=== PATIENT | female | born 1945 | race Caucasian/White ===

== ENCOUNTER 2016-12-06 09:35 | Outpatient (CLI) | payer MEDICARE, OTHER | END 2016-12-06 09:36 | disposition critical access hospital (66) | LOC: EMS 09:35 | PROVIDERS: ATTEND Surgery | DX: S99.912A Unspecified injury of left ankle, initial encounter (principal); W10.9XXA Fall (on) (from) unspecified stairs and steps, initial encounter; Y92.009 Unspecified place in unspecified non-institutional (private) residence as the place of occurrence of the external cause | CPT/HCPCS: A0425; A0429 ==

== ENCOUNTER 2016-12-06 09:53 | Emergency (ER) | payer MEDICARE, OTHER ==
[2016-12-06 10:01] VITALS: BP 178/84
--- NOTE | 2016-12-06 11:47 | XRAY Preliminary Report ---
Exam: XR Foot 3 View LT IMPRESSION: No acute findings 3 view left foot radiography. [facility] SITE ID: [id number]
--- NOTE | 2016-12-06 11:50 | XRAY Report ---
EXAM: LEFT FOOT RADIOGRAPHY EXAM DATE: 12/06/2016 10:41 AM. CLINICAL HISTORY: Injury. Pain COMPARISON: None. TECHNIQUE: 3 views. FINDINGS: Bones: No fractures or bone lesions. Joints: Scattered minor degenerative changes. No subluxations. Soft Tissues: No soft tissue swelling. IMPRESSION: No acute findings 3 view left foot radiography. [facility] Referring Provider Line: [phone] SITE ID: [id number]
--- NOTE | 2016-12-06 12:39 | ED Physician Documentation ---
PD HPI LOWER EXT INJURY - Stated complaint Stated Complaint: L ANKLE INJ - Chief complaint Chief Complaint: Ext Problem - History obtained from History obtained from: Patient, Family - History of Present Illness PD HPI LOW EXT INJURY LOCATION: Left, Foot Type of injury: Fall Where injury occurred: Home Timing - onset: Today Timing - duration: Hours Timing - details: Abrupt onset, Still present Improved by: Rest, Immobilization Worsened by: Moving, Palpating Associated symptoms: Swelling. No: Weakness, Numbness Contributing factors: No: Anticoagulated Similar symptoms before: Has not had sx before Recently seen: Not recently seen - Additional information Additional information: 71-year-old female was walking down steps she slipped on a piece of carpet and injured her left foot. She has pain in the center of the left foot with any weightbearing and she is not able to bear weight on this. Review of Systems Constitutional: denies: Fever Respiratory: denies: Cough GI: denies: Vomiting Skin: denies: Rash Musculoskeletal: reports: Extremity pain, Extremity swelling, Pain with weight bearing. 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: Hysterectomy HEENT: Tonsil/Adenoidectomy - Present Medications Home Medications: Ambulatory Orders Medication Instructions Recorded Confirmed Pantoprazole Sodium [Protonix] 40 mg PO DAILY 10/02/12 09/20/15 lamoTRIgine [LaMICtal] 100 mg PO DAILY 10/02/12 09/20/15 - Allergies Allergies/Adverse Reactions: Allergies Allergy/AdvReac Type Severity Reaction Status Date / Time esomeprazole Allergy Mild unknown Verified 12/06/16 09:59 diazepam Allergy Unknown Hallucinati Verified 12/06/16 09:59 ons Penicillins Allergy Unknown Hallucinati Verified 12/06/16 09:59 ons azithromycin AdvReac tremors Verified 12/06/16 09:59 - Social History Does the pt smoke?: No Smoking Status: Never smoker Does the pt drink ETOH?: No Does the pt have substance abuse?: No - Immunizations Immunizations are current?: No Immunizations: TDAP >10years/unknown - POLST Patient has POLST: No POLST Status: Full Code PD ED PE NORMAL - Vitals Vital signs reviewed: Yes (Hypertensive) - General General: Alert and oriented X 3, No acute distress, Well developed/nourished - HEENT HEENT: Atraumatic, PERRL, EOMI - Respiratory Respiratory: No respiratory distress - Derm Derm: Normal color, Warm and dry, No rash - Extremities Extremities: No deformity, Other (There is tenderness to the left foot centrally and just lateral to central. There is no crepitance to the area there is mild swelling to the entire bottom of the foot the distal neurovascular components are intact.) - Neuro Neuro: Alert and oriented X 3, No motor deficit, No sensory deficit, Normal speech - Psych Psych: Normal mood, Normal affect Results - Vitals Vitals: Vital Signs - 24 hr 12/06/16 09:54 Temperature 36.4 C L Heart Rate 64 Respiratory 16 Rate Blood Pressure 178/84 H O2 Saturation 97 Oxygen O2 Source Room air - Rads (name of study) Left foot Radiology: Prelim report reviewed (Impression: No acute findings 3 view left foot radiography), EMP read indepedently, See rad report PD MEDICAL DECISION MAKING - ED course Complexity details: reviewed results, re-evaluated patient, considered differential, d/w patient, d/w family ED course: 71-year-old female with a bruise to the bottom of her foot is not able to bear weight. She is given a walker for ambulation and is to expect resolution of her symptoms within the next 2 weeks. Departure - Departure Disposition: 01 Home, Self Care Clinical Impression: Contusion of left foot Qualifiers: Encounter type: initial encounter Qualified Code(s): S90.32XA - Contusion of left foot, initial encounter Condition: Stable Instructions: ED Contusion Lower Ext Follow-Up: Skip Fernandez MD [Primary Care Provider] - Comments: Today it looks like you contused your plantar fascia. There is no evidence of a fracture. You would be best served to not bear weight on this foot for several days and expect to have resolution of your pain, and be able to walk normally, within about 2 weeks.
== END 2016-12-06 12:42 | disposition home or self-care (01) ==
LOC: EDUNIT# → ED 09:53
DX: S90.32XA Contusion of left foot, initial encounter (principal); W01.0XXA Fall on same level from slipping, tripping and stumbling without subsequent striking against object, initial encounter; Y92.018 Other place in single-family (private) house as the place of occurrence of the external cause; K21.9 Gastro-esophageal reflux disease without esophagitis
CPT/HCPCS: 99283

== ENCOUNTER 2016-12-18 07:51 | Emergency (ER) | payer MEDICARE, OTHER ==
--- NOTE | 2016-12-18 08:00 | ED Physician Documentation ---
PD HPI LOWER EXT INJURY - Stated complaint Stated Complaint: LT FOOT PX - History obtained from History obtained from: Patient - History of Present Illness PD HPI LOW EXT INJURY LOCATION: Left, Foot Type of injury: Fall Timing - onset: How many weeks ago (2) Timing - duration: Weeks (2) Timing - details: Abrupt onset, Still present Worsened by: Moving, Palpating, Other (step off portion of gait and stepping up , such as on stairs.) Associated symptoms: Swelling, Discolored (bruised foot and toes.). No: Weakness, Numbness Similar symptoms before: Has not had sx before Recently seen: Emergency Dept (she was seen with initial injury and had xray read as negative; Dx sprain/contusion. Has had persistent pain. Here for recheck.) Review of Systems Constitutional: denies: Fever, Chills Skin: reports: Other (bruised color and swelling after the injury, improving slowly). 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: Hysterectomy HEENT: Tonsil/Adenoidectomy - Present Medications Home Medications: Ambulatory Orders Medication Instructions Recorded Confirmed Pantoprazole Sodium [Protonix] 40 mg PO DAILY 10/02/12 12/18/16 lamoTRIgine [LaMICtal] 100 mg PO DAILY 10/02/12 12/18/16 - Allergies Allergies/Adverse Reactions: Allergies Allergy/AdvReac Type Severity Reaction Status Date / Time esomeprazole Allergy Mild unknown Verified 12/06/16 09:59 diazepam Allergy Unknown Hallucinati Verified 12/06/16 09:59 ons Penicillins Allergy Unknown Hallucinati Verified 12/06/16 09:59 ons blue dye Allergy Unknown Verified 12/18/16 07:59 azithromycin AdvReac tremors Verified 12/06/16 09:59 - Social History Does the pt smoke?: No Smoking Status: Never smoker Does the pt drink ETOH?: No Does the pt have substance abuse?: No - Immunizations Immunizations are current?: No Immunizations: TDAP >10years/unknown - POLST Patient has POLST: No POLST Status: Full Code PD ED PE NORMAL - Vitals Vital signs reviewed: Yes - General General: Alert and oriented X 3, No acute distress, Well developed/nourished - Derm Derm: Normal color, Warm and dry - Extremities Extremities: Other (limping gait favoring less movement at mid foot. foot is tender anterolaterally over 4th MT base area. ) - Neuro Neuro: No motor deficit, No sensory deficit Results - Vitals Vitals: Vital Signs - 24 hr 12/18/16 07:56 Temperature 36.3 C L Heart Rate 65 Respiratory 18 Rate Blood Pressure 175/69 H O2 Saturation 96 Oxygen O2 Source Room air - Rads (name of study) foot Radiology: Prelim report reviewed (xray now showing fracture in area of pain; not clearly visible on prior film. ) PD MEDICAL DECISION MAKING - ED course Complexity details: reviewed results, considered differential, d/w patient Departure - Departure Disposition: 01 Home, Self Care Clinical Impression: Foot pain, left Metatarsal bone fracture Qualifiers: Encounter type: subsequent encounter Metatarsal bone: fourth Fracture type: closed Fracture alignment: nondisplaced Laterality: left Fracture healing: with routine healing Qualified Code(s): S92.345D - Nondisplaced fracture of fourth metatarsal bone, left foot, subsequent encounter for fracture with routine healing Condition: Stable Record reviewed to determine appropriate education?: Yes Instructions: ED Fx Foot Follow-Up: Skip Fernandez MD [Primary Care Provider] - Ashly Aguero MD [Provider Admit Priv/Credential] - Comments: Take Advil twice daily 200-400 mg twice daily for a week. Add Tylenol every 4-6 hours if needed for pain. Use the Ortho shoe for the foot when walking. Follow up with PMD or Ortho in about another 8-10 days, call for appt. There is a small fracture line showing up now in one of the midfoot bones. This will take about a month to heal, but should start improving after the first couple of weeks (so soon). Discharge Date/Time: 12/18/16 08:58
[2016-12-18 08:04] VITALS: BP 175/69
--- NOTE | 2016-12-18 09:04 | XRAY Preliminary Report ---
Exam: XR Foot 3 View LT IMPRESSION: Nondisplaced transverse fracture in the proximal metaphysis of the fourth metatarsal bone and there is also a short radiolucent line in the distal lateral cuboid, concern for small fracture as well, these 2 findings were not well visualized in the prior exam. [facility] SITE ID: [id number]
--- NOTE | 2016-12-18 09:06 | XRAY Report ---
EXAM: LEFT FOOT RADIOGRAPHY EXAM DATE: 12/18/2016 08:42 AM. CLINICAL HISTORY: Continued pain in foot and worse again today . COMPARISON: 12/06/2016. TECHNIQUE: 3 views. FINDINGS: Bones: There is nondisplaced transverse fracture in the proximal metaphysis of the fourth metatarsal bone and there is also a short radiolucent line in the distal lateral cuboid, concern for small fract ure as well, these 2 findings were not well visualized in the prior exam. Otherwise, no new fractures or bone lesions identified. Joints: No significant degenerative process. No subluxations. Soft Tissues: No radiopaque foreign body. IMPRESSION: Nondisplaced transverse fracture in the proximal metaphysis of the fourth metatarsal bone and there is also a short radiolucent line in the distal lateral cuboid, concern for small fracture as well, these 2 findings were not well visualized in the prior exam. [facility] Referring Provider Line: [phone] SITE ID: [id number]
== END 2016-12-18 08:58 | disposition home or self-care (01) ==
LOC: ED 07:51
DX: M79.672 Pain in left foot (principal); S92.345D Nondisplaced fracture of fourth metatarsal bone, left foot, subsequent encounter for fracture with routine healing; W19.XXXD Unspecified fall, subsequent encounter; K21.9 Gastro-esophageal reflux disease without esophagitis
CPT/HCPCS: 99283

== ENCOUNTER 2017-03-21 06:17 | Emergency (ER) | payer MEDICARE, OTHER ==
[2017-03-21 07:09] LABS: BASOPHILS % (AUTO) 0.5 %; EOSINOPHILS % (AUTO) 0.5 %; HCT - HEMATOCRIT 42.1 % (37.0-47.0); HGB - HEMOGLOBIN 14.2 g/dL (12.0-16.0); LYMPHOCYTES # (AUTO) 1.2 10^3/uL (1.5-3.5); LYMPHOCYTES % (AUTO) 23.6 %; MEAN CORPUSCULAR HEMOGLOBIN 30.4 pg (27.0-31.0); MEAN CORPUSCULAR HGB CONC 33.7 g/dL (32.0-36.0); MEAN CORPUSCULAR VOLUME 90.4 fL (81.0-99.0); MEAN PLATELET VOLUME 6.8 fL (7.9-10.8); MONOCYTES # (AUTO) 0.7 10^3/uL (0.0-1.0); NEUTROPHILS # (AUTO) 3.2 10^3/uL (1.5-6.6); NEUTROPHILS % (AUTO) 61.4 %; NUCLEATED RED BLOOD CELLS AUTO 0.1 /100WBC; RED BLOOD COUNT 4.65 10^6/uL (4.20-5.40); RED CELL DISTRIBUTION WIDTH 13.8 % (12.0-15.0); UNCORRECTED WHITE BLOOD COUNT 5.2 x10^3/uL; WHITE BLOOD COUNT 5.2 x10^3/uL (4.8-10.8)
[2017-03-21 07:14] LABS: BILIRUBIN,URINE NEGATIVE (NEGATIVE)
[2017-03-21 07:22] LABS: ALBUMIN/GLOBULIN RATIO 1.7 (1.0-2.2); BILIRUBIN,TOTAL 0.4 mg/dL (0.2-1.0); CALCIUM 9.6 mg/dL (8.5-10.3); CREATININE 0.9 mg/dL (0.4-1.0); POTASSIUM 3.8 mmol/L (3.5-5.0); TOTAL PROTEIN 6.9 g/dL (6.7-8.2)
[2017-03-21 07:29] LABS: UA w/ MICROSCOPIC CHARGE YES
[2017-03-21 07:40] LABS: UR CULTURE IF IND INDICATED
[2017-03-21] MEDS ORDERED: cefTRIAXone 1 GM in SODIUM CHLORIDE 0.9% MINIBAG 100 ML IV STA (07:48)
--- NOTE | 2017-03-21 07:48 | ED Physician Documentation ---
PD HPI ABD PAIN - Stated complaint Stated Complaint: GLF - Chief complaint Chief Complaint: Abd Pain - History obtained from History obtained from: Patient - History of Present Illness Timing - onset: Enter time (299), Today Timing - duration: Hours Timing - details: Abrupt onset, Still present Pain level max: 10 Pain level now: 6 Quality: Sharp, Pain Location: RUQ, Epigastric Improved by: Laying still Worsened by: Moving, Position, Palpation Associated symptoms: No: Fever, Nausea, Vomiting, Hematemesis, Diarrhea, Constipation, Melena, Hematochezia, Dysuria, Hematuria, Chest pain, Dizzy, Near syncope / syncope, Loss of appetite Similar symptoms before: Has not had sx before Recently seen: Not recently seen - Additional information Additional information: 72-year-old female status post Christina and appendectomy has rolled over in bed last night and had a sharp pain in her right upper abdomen. The pain was initially under the ribs along the entire right side and this pain is now more localized to the Midclavicular line of the upper abdomen. She has some pain with movement and she does not have any visceral symptoms. She feels she may have pulled a muscle in her abdominal wall. Her pain is improved from its worst. Review of Systems Constitutional: denies: Fever, Chills, Myalgias Eyes: denies: Decreased vision Ears: denies: Ear pain Nose: denies: Congestion Throat: denies: Sore throat Cardiac: denies: Chest pain / pressure, Palpitations Respiratory: denies: Dyspnea, Cough GI: reports: Abdominal Pain. denies: Nausea, Vomiting, Constipation, Diarrhea : denies: Dysuria, Frequency Skin: denies: Rash, Lesions Musculoskeletal: denies: Neck pain, Back pain Neurologic: denies: Generalized weakness, Focal weakness, Numbness PD PAST MEDICAL HISTORY - Past Medical History Cardiovascular: None Respiratory: None Neuro: Seizure disorder Endocrine/Autoimmune: None GI: GERD, Diverticulitis : None HEENT: None Psych: None Musculoskeletal: None Derm: None - Past Surgical History Past Surgical History: Yes General: Colonoscopy, EGD Ortho: Rotator cuff repair /[employer]: Hysterectomy HEENT: Tonsil/Adenoidectomy - Present Medications Home Medications: Ambulatory Orders Medication Instructions Recorded Confirmed Pantoprazole Sodium [Protonix] 40 mg PO DAILY 10/02/12 12/18/16 lamoTRIgine [LaMICtal] 100 mg PO DAILY 10/02/12 12/18/16 Sulfamethoxazole/Trimethoprim 1 each PO BID #14 tablet 03/21/17 [Sulfamethoxazole-Tmp Ds Tablet] - Allergies Allergies/Adverse Reactions: Allergies Allergy/AdvReac Type Severity Reaction Status Date / Time esomeprazole Allergy Mild unknown Verified 03/21/17 06:31 diazepam Allergy Unknown Hallucinati Verified 03/21/17 06:31 ons Penicillins Allergy Unknown Hallucinati Verified 03/21/17 06:31 ons blue dye Allergy Unknown Verified 03/21/17 06:31 azithromycin AdvReac tremors Verified 03/21/17 06:31 - Social History Does the pt smoke?: No Smoking Status: Never smoker Does the pt drink ETOH?: No Does the pt have substance abuse?: No - Immunizations Immunizations are current?: No Immunizations: TDAP >10years/unknown - POLST Patient has POLST: No POLST Status: Full Code PD ED PE NORMAL - Vitals Vital signs reviewed: Yes (Hypertensive mild) - General General: Alert and oriented X 3, No acute distress, Well developed/nourished - HEENT HEENT: Atraumatic, PERRL - Neck Neck: Supple, no meningeal sign - Cardiac Cardiac: RRR, No murmur - Respiratory Respiratory: No respiratory distress, Clear bilaterally - Abdomen Abdomen: Soft, Other (There is tenderness to the right upper quadrant over the mid clavicular line and medial to that. The tenderness is in a specific area and there is no guarding or rebound. There is no tenderness to bimanual palpation of the right kidney. There is no tenderness in the rest of the abdomen. There is pain with sitting up and laying down to this area.) - Back Back: No CVA TTP, No spinal TTP - Derm Derm: Normal color, Warm and dry, No rash - Extremities Extremities: No deformity, No edema - Neuro Neuro: No motor deficit, No sensory deficit - Psych Psych: Normal mood, Normal affect Results - Vitals Vitals: Vital Signs - 24 hr 03/21/17 03/21/17 06:28 09:35 Temperature 36.4 C L Heart Rate 84 58 L Respiratory 19 16 Rate Blood Pressure 117/87 H 135/58 H O2 Saturation 97 97 Oxygen O2 Source Room air - Labs Labs: Microbiology 03/21/17 06:55 Urine Culture - Preliminary Urine,Clean Catch CULTURE IN PROGRESS. RESULTS TO FOLLOW. Laboratory Tests 03/21/17 03/21/17 03/21/17 06:06 06:55 06:56 WBC 5.2 RBC 4.65 Hgb 14.2 Hct 42.1 MCV 90.4 MCH 30.4 MCHC 33.7 RDW 13.8 Plt Count 230 MPV 6.8 L Neut # 3.2 Lymph # 1.2 L [place]y # 0.7 Eos # 0.0 Baso # 0.0 Absolute Nucleated RBC 0.01 Nucleated RBC % 0.1 Sodium 139 Potassium 3.8 Chloride 102 Carbon Dioxide 28 Anion Gap 9.0 BUN 19 Creatinine 0.9 Estimated GFR (MDRD) 61 L Glucose 69 L Calcium 9.6 Total Bilirubin 0.4 AST 24 ALT 15 Alkaline Phosphatase 58 Total Protein 6.9 Albumin 4.3 Globulin 2.6 Albumin/Globulin Ratio 1.7 Lipase 25 Urine Color YELLOW Urine Clarity CLEAR Urine pH 6.0 Ur Specific [place] 1.025 Urine Protein NEGATIVE Urine Glucose (UA) NEGATIVE Urine Ketones NEGATIVE Urine Occult Blood TRACE-INTA Urine Nitrite NEGATIVE Urine Bilirubin NEGATIVE Urine Urobilinogen 0.2 (NORMAL) Ur Leukocyte Esterase SMALL H Urine RBC None Seen Urine WBC 6-10 H Ur Squamous Epith Cells RARE Squamous Urine Bacteria Few Urine Mucus Moderate Strands Ur Microscopic Review INDICATED Urine Culture Comments INDICATED - Rads (name of study) 2 view chest Radiology: Prelim report reviewed (Impression: 1. Cardiomegaly. 2. Hyperinflation. 3. No acute disease.), EMP read indepedently, See rad report Procedures - Bedside sono Bedside sono by EMP: With use of bedside ultrasound the right kidney is examined. It is sonographically nontender and without evidence of hydronephrosis. PD MEDICAL DECISION MAKING - ED course Complexity details: reviewed old records, reviewed results, re-evaluated patient , considered differential, d/w patient ED course: 72-year-old female went to go lay down in her bed last night and strained her abdominal wall. She has pain in the right upper quadrant she has no visceral symptoms and workup is otherwise unremarkable. She does have urinary tract infection on evaluation of the urine and is administered Rocephin intravenously. She does not have a tender kidney on the right side. Departure - Departure Disposition: 01 Home, Self Care Clinical Impression: Urinary tract infection Qualifiers: Urinary tract infection type: acute cystitis Hematuria presence: without hematuria Qualified Code(s): N30.00 - Acute cystitis without hematuria Strain of abdominal wall Qualifiers: Encounter type: initial encounter Qualified Code(s): S39.011A - Strain of muscle, fascia and tendon of abdomen, initial encounter Condition: Stable Instructions: ED Strain Abdominal Muscle, ED UTI Cystitis Female Follow-Up: Skip Fernandez MD [Primary Care Provider] - Prescriptions: Sulfamethoxazole/Trimethoprim [Sulfamethoxazole-Tmp Ds Tablet] 1 each PO BID # 14 tablet Discharge Date/Time: 03/21/17 09:36
[2017-03-21] MEDS ORDERED: cefTRIAXone 1 GM VIAL ONE (08:17)
--- NOTE | 2017-03-21 09:06 | XRAY Preliminary Report ---
Exam: XR CHEST 2 VIEW PA/LAT IMPRESSION: 1. Cardiomegaly. 2. Hyperinflation. 3. No acute disease. [facility] SITE ID: [id number]
--- NOTE | 2017-03-21 09:09 | XRAY Report ---
EXAM: CHEST RADIOGRAPHY EXAM DATE: 03/21/2017 08:49 AM. CLINICAL HISTORY: Right lower chest pain. COMPARISON: 11/26/2010. 01/18/2008. TECHNIQUE: 2 views. FINDINGS: Lungs/Pleura: No focal opacities evident. No pleural effusion. No pneumothorax. Hyperinflated. Mediastinum: Heart is enlarged. Aorta is tortuous. Other: Degenerative changes of the thoracic spine and both shoulders. Postsurgical changes along the right humeral head. IMPRESSION: 1. Cardiomegaly. 2. Hyperinflation. 3. No acute disease. [facility] Referring Provider Line: [phone] SITE ID: [id number]
[2017-03-21 09:36] VITALS: BP 135/58
== END 2017-03-21 09:36 | disposition home or self-care (01) ==
LOC: ED 06:17
DX: N30.00 Acute cystitis without hematuria (principal); S39.011A Strain of muscle, fascia and tendon of abdomen, initial encounter; X50.9XXA Other and unspecified overexertion or strenuous movements or postures, initial encounter
CPT/HCPCS: 36415; 71020; 80053; 81001; 81003; 83690; 85025; 87077; 87086; 96365; 99283; 99284

== ENCOUNTER 2017-04-25 08:17 | Outpatient (CLI) | payer MEDICARE, OTHER ==
--- NOTE | 2017-04-25 15:10 | DEXA Report ---
DEXA SCAN: 04/25/2017 CLINICAL INDICATION: Postmenopausal. TECHNIQUE: Dual energy x-ray absorptiometry (DXA) was performed on a [employer] system. Regions measured are the AP spine, femoral neck, and, if needed, forearm. COMPARISON: None. In accordance with the International Society for Clinical Densitometry (ISCD) guidelines, data from previous exams may be reanalyzed using current recommendations and techniques. This is done to allow a more accurate basis for comparison with the current study. FINDINGS LUMBAR SPINE DATA: REGION BMD (g/cm/cm) T-SCORE Z-SCORE L1 0.929 -1.7 -0.2 L2 1.169 -0.3 1.2 L3 1.207 0.1 1.5 L4 1.151 -0.4 1.1 TOTAL 1.119 -0.5 1.0 NOTE: All evaluable vertebrae are used for classification. HIP DATA: REGION BMD (g/cm/cm) T-SCORE Z-SCORE Neck 0.844 -1.4 0.3 TOTAL 0.941 -0.5 1.0 NOTE: The femoral neck or total proximal femur, whichever is lowest, is used for classification. IMPRESSION: THE WHO CLASSIFICATION BASED ON THE INTERNATIONAL REFERENCE STANDARD: OSTEOPENIA (REFERENCE LEFT FEMORAL NECK). FRACTURE RISK: INCREASED. RECOMMENDATION: Patients with diagnosis of osteoporosis or osteopenia should have regular bone mineral density assessment. For those eligible for Medicare, routine testing is allowed once every 2 years. Testing frequency can be increased for patients who have rapidly progressing disease or for those who are receiving medical therapy to restore bone mass. COMMENT: World Health Organization (WHO) definitions for osteoporosis and osteopenia: NORMAL BMD: T-score at -1.0 or higher, fracture risk is low. OSTEOPENIA BMD: T-score between -1.0 and -2.5, fracture risk is increased. OSTEOPOROSIS BMD: T-score at -2.5 or lower, fracture risk high. National Osteoporosis Foundation recommends: 1. Obtain adequate dietary calcium (at least 1200 mg per day) and vitamin D (400 -800 international units per day). 2. Participate, as appropriate, in regular weightbearing and muscle- strengthening exercise. 3. Avoid tobacco use and reduce alcohol and caffeine intake. 4. For more detailed information see the website at www.NOF.org. MTDD
== END 2017-04-25 08:18 | disposition home or self-care (01) ==
LOC: DI 08:17
PROVIDERS: ATTEND Internal Medicine
DX: M85.88 Other specified disorders of bone density and structure, other site (principal)
CPT/HCPCS: 77080

== ENCOUNTER 2017-05-15 14:27 | Outpatient (CLI) | payer MEDICARE, OTHER ==
[2017-05-15 15:12] LABS: BILIRUBIN,URINE NEGATIVE (NEGATIVE)
[2017-05-15 15:19] LABS: UR CULTURE IF IND NOT INDICATED
== END 2017-05-15 14:28 | disposition home or self-care (01) ==
LOC: LAB 14:27
PROVIDERS: ATTEND Internal Medicine
DX: N39.41 Urge incontinence (principal)
CPT/HCPCS: 81001; 87086

== ENCOUNTER 2017-05-16 08:00 | Outpatient (CLI) | payer MEDICARE, OTHER | END 2017-05-16 08:01 | disposition home or self-care (01) | LOC: LAB.R 08:00 | PROVIDERS: ATTEND Internal Medicine | DX: N39.41 Urge incontinence (principal) | CPT/HCPCS: 87086 ==

== ENCOUNTER 2017-05-25 08:43 | Outpatient (CLI) | payer MEDICARE, OTHER ==
--- NOTE | 2017-05-30 15:19 | Mammography Report ---
DATE OF SERVICE: 05/25/2017 DIGITAL SCREENING MAMMOGRAM: 05/25/2017 CLINICAL INDICATION: A 72-year-old nulliparous patient with history of benign left breast biopsy for screening. TECHNIQUE: Routine CC and MLO projections were obtained of the breasts. FINDINGS: The breasts demonstrate scattered fibroglandular densities bilaterally. Punctate, typical ly benign calcifications are present. Postoperative changes in the left breast are stable. No suspicious mass es, clustered microcalcifications, or regions of architectural distortion are identified. IMPRESSION: Benign findings. RECOMMENDATIONS: Routine annual screening unless otherwise clinically indicated. BIRADS category 2 - Benign findings. STANDARD QUALIFYING STATEMENTS 1. This examination was reviewed with the aid of Computed-Aided Detection (CAD). 2. A negative or benign imaging report should not delay biopsy if clinically suspicious findings are present. Consider surgical consultation if warranted. More than 5% of cancers are not identified by imaging. 3. Dense breasts may obscure an underlying neoplasm. TD: 05/26/2017 22:46
== END 2017-05-25 08:44 | disposition home or self-care (01) ==
LOC: DI 08:43
PROVIDERS: ATTEND Internal Medicine
DX: Z12.31 Encounter for screening mammogram for malignant neoplasm of breast (principal)
CPT/HCPCS: 77067

== ENCOUNTER 2017-06-19 11:22 | Outpatient (CLI) | payer MEDICARE, OTHER | END 2017-06-19 11:23 | disposition home or self-care (01) | LOC: SC 11:22 | PROVIDERS: ATTEND Internal Medicine Pulmonary Disease | DX: G47.10 Hypersomnia, unspecified (principal); G47.8 Other sleep disorders; R06.83 Snoring | CPT/HCPCS: 99203; G0463; 99212 ==

== ENCOUNTER 2017-07-16 19:17 | Outpatient (CLI) | payer MEDICARE, OTHER | END 2017-07-16 19:18 | disposition home or self-care (01) | LOC: SC 19:17 | PROVIDERS: ATTEND Internal Medicine Pulmonary Disease | DX: G47.33 Obstructive sleep apnea (adult) (pediatric) (principal); G47.61 Periodic limb movement disorder | CPT/HCPCS: 95810 ==

== ENCOUNTER 2017-08-08 09:24 | Outpatient (CLI) | payer MEDICARE, OTHER | END 2017-08-08 09:25 | disposition home or self-care (01) | LOC: SC 09:24 | PROVIDERS: ATTEND Nurse Practitioner Family | DX: G47.33 Obstructive sleep apnea (adult) (pediatric) (principal); G47.61 Periodic limb movement disorder | CPT/HCPCS: 99214; G0463; 99212 ==

== ENCOUNTER 2017-08-15 14:14 | Outpatient (CLI) | payer MEDICARE, OTHER ==
--- NOTE | 2017-08-15 14:58 | XRAY Report ---
TWO VIEW CHEST: 08/15/2017 CLINICAL INDICATION: Cough. COMPARISON: 03/21/2017. FINDINGS: Frontal and lateral views of the chest demonstrate a normal cardiac silhouette. The lungs are clear. No effusion or pneumothorax is present. IMPRESSION: NORMAL CHEST. TD: 08/15/2017 14:56
== END 2017-08-15 14:15 | disposition home or self-care (01) ==
LOC: DI 14:14
PROVIDERS: ATTEND Physician Assistant Medical
DX: R05 Cough (principal); R06.00 Dyspnea, unspecified
CPT/HCPCS: 71046

== ENCOUNTER 2017-08-24 15:08 | Outpatient (CLI) | payer MEDICARE, OTHER ==
--- NOTE | 2017-08-24 17:14 | XRAY Report ---
TWO VIEW CHEST: 08/24/2017 CLINICAL INDICATION: Dyspnea. COMPARISON: 08/15/2017 FINDINGS: Frontal and lateral views of the chest demonstrate a normal cardiac silhouette. The lungs remain clear. No effusion or pneumothorax is present. IMPRESSION: NORMAL CHEST, UNCHANGED. cc: NICA LINO, TD: 08/24/2017 17:12 cc: NICA LINO,
== END 2017-08-24 15:09 | disposition home or self-care (01) ==
LOC: DI 15:08
PROVIDERS: ATTEND Physician Assistant Medical
DX: R06.00 Dyspnea, unspecified (principal)
CPT/HCPCS: 71046

== ENCOUNTER 2017-10-10 09:56 | Outpatient (CLI) | payer MEDICARE, OTHER | END 2017-10-10 09:57 | disposition home or self-care (01) | LOC: SC 09:56 | PROVIDERS: ATTEND Nurse Practitioner Family | DX: G47.33 Obstructive sleep apnea (adult) (pediatric) (principal) | CPT/HCPCS: 99213 ==

== ENCOUNTER 2017-12-07 08:19 | Day surgery (SDC) | payer MEDICARE, OTHER ==
[~2017-12-07 08:19] MED LIST: BRIMONIDINE 0.2% OPHTH DROPS 5 ML ONE; BSS/LIDOCAINE/EPINEPHRINE 1 ML SYRINGE ONE; TIMOLOL 0.5% OPHTH DROPS ONE; TRIAMCIN/MOXIFLOX OPHTHALMIC 0.6 ML VIAL IO ONE; VANCOMYCIN OPHTHALMI 8MG/0.8ML 8 MG/0.8 ML SYRINGE IO ONE
[2017-12-07] MEDS ORDERED: CYCLOPENTOLATE 1% OPHTH DROPS 2 ML ONE (08:50)
[2017-12-07] MEDS ORDERED: KETOROLAC 0.45% OPHTH DROPS ONE (08:50)
[2017-12-07] MEDS ORDERED: PHENYLEPHRINE 2.5% OPHTH 2 ML DROPS ONE (08:50)
[2017-12-07] MEDS ORDERED: PROPARACAINE 0.5% OPHTH DROPS 15 ML ONE (08:50)
[2017-12-07] MEDS ORDERED: PROPARACAINE 0.5% OPHTH DROPS 15 ML RIGHTEYE ONE ×2 (09:00→10:29)
[2017-12-07] MEDS ORDERED: CYCLOPENTOLATE 1% OPHTH DROPS 2 ML RIGHTEYE ONE (09:00)
[2017-12-07] MEDS ORDERED: PHENYLEPHRINE 2.5% OPHTH 2 ML DROPS RIGHTEYE ONE (09:00)
[2017-12-07] MEDS ORDERED: KETOROLAC 0.45% OPHTH DROPS RIGHTEYE ONE (09:00)
[2017-12-07] MEDS ORDERED: LACTATED RINGERS 500 ML IV ONE (09:03)
[2017-12-07] MEDS ORDERED: EPINEPHrine 1 MG/ML AMP IR ONE (10:27)
[2017-12-07] MEDS ORDERED: BRIMONIDINE 0.2% OPHTH DROPS 5 ML OPTH ONE (10:27)
[2017-12-07] MEDS ORDERED: BSS/LIDOCAINE/EPINEPHRINE 1 ML SYRINGE IO ONE ×2 (10:28)
[2017-12-07] MEDS ORDERED: TIMOLOL 0.5% OPHTH DROPS OPTH ONE (10:28)
[2017-12-07] MEDS ORDERED: CHONDR SULF/HYALURONATE SYRINGE IO ONE (10:28)
[2017-12-07] MEDS ORDERED: MIDAZOLAM 2 MG/2 ML VIAL IVP ONE (10:30)
[2017-12-07 11:36] VITALS: BP 157/67
--- NOTE | 2017-12-07 12:00 | OPERATIVE REPORT ---
DATE OF SERVICE: 12/07/2017 Physician: Marcelo Ruiz MD PREOPERATIVE DIAGNOSIS: Visually significant cataract, right eye. This was her first cataract surgery. POSTOPERATIVE DIAGNOSIS: Visually significant cataract, right eye. This was her first cataract surgery. NAME OF PROCEDURE: Phacoemulsification with posterior chamber intraocular lens implant, right eye. SURGEON: Marcelo Ruiz MD ANESTHESIA: Monitored anesthesia care. COMPLICATIONS: None. OPERATIVE INDICATIONS: This is a 72-year-old woman with progressive vision loss in the right eye due to 2+ nuclear sclerotic and 3+ cortical cataract. Best corrected visual acuity was 20/40, with glare to 20/400 in the right eye. INDICATIONS FOR SURGERY: Overall decrease in vision, difficulty seeing words on a computer screen, difficulty reading; difficulty seeing words, closed caption or game scores on TV; difficulty seeing street signs, difficulty driving at night because of head lights from other vehicles. She was consented at length concerning the risks and benefits of cataract surgery, after which she expressed a desire to proceed with surgery. OPERATIVE PROCEDURE: The patient was taken to OR #3 and placed under monitored anesthesia care. A surgical timeout was conducted confirming the correct patient, correct procedure, and correct surgical site. She was placed on the LenSx laser, and her eye was docked with the laser interface. The laser performed the capsulotomy, lens softening, phaco wounds and arcuate keratotomy incisions. She was then moved to the operating microscope, given topical anesthesia, and then prepped and draped in the usual sterile fashion. The eye was entered at the 12 and 9 o'clock positions. Intracameral Shugarcaine was injected into the anterior chamber, followed by Viscoat. The capsulorrhexis flap created by the LenSx laser was removed from the anterior chamber. Nucleus was hydrodissected and phacoemulsified. Cortex was evacuated using automated infusion and aspiration. Provisc was injected in the capsular bag, and a 19.5 diopter intraocular lens inserted in the bag. Approximately 0.8 mL of a mixture of triamcinolone, moxifloxacin and vancomycin was injected subconjunctivally in the superior quadrant for infection and inflammation prophylaxis. I and A was used to evacuate the viscoelastic material. The eye was inflated to physiologic pressure using balanced salt solution, and found to be watertight. The patient was taken from the operating room in good condition and given postop instructions. TD: 12/07/2017 11:37
== END 2017-12-07 08:20 | disposition home or self-care (01) ==
LOC: SDS 08:19
PROVIDERS: ATTEND Ophthalmology
PROC: 08RJ3JZ Replacement of Right Lens with Synthetic Substitute, Percutaneous Approach (ICD-10-PCS; principal; 2017-12-07 09:30)
DX: H25.811 Combined forms of age-related cataract, right eye (principal); K21.9 Gastro-esophageal reflux disease without esophagitis; Z87.891 Personal history of nicotine dependence; G47.30 Sleep apnea, unspecified
CPT/HCPCS: 66984; A9270; J3490; V2632

== ENCOUNTER 2018-03-08 07:44 | Day surgery (SDC) | payer MEDICARE, OTHER ==
[~2018-03-08 07:44] MED LIST changes: +CYCLOPENTOLATE 1% OPHTH DROPS 2 ML ONE; +EPINEPHrine 1 MG/ML AMP ONE; +KETOROLAC 0.45% OPHTH DROPS ONE; +PHENYLEPHRINE 2.5% OPHTH 2 ML DROPS ONE; +PROPARACAINE 0.5% OPHTH DROPS 15 ML ONE
[2018-03-08] MEDS ORDERED: LACTATED RINGERS 500 ML IV ONE (07:54)
--- NOTE | 2018-03-08 08:20 | ANESTHESIA ---
Pre-Anesthesia VS, & Labs - Diagnosis Left senile combined cataract - Procedure Left laser assisted phaco with IOL implant Vital Signs: Temp Pulse Resp BP Pulse Ox 36.4 C L 60 16 127/72 96 03/08/18 07:55 03/08/18 07:55 03/08/18 07:55 03/08/18 07:55 03/08/18 07:55 Height 5 ft 5 in Weight (kg) 72.1 kg Body Mass Index 27.4 - NPO >8 hours Last Fluid Intake: tea at 0515 - Is Patient ?: Not Applicable Home Medications and Allergies Pantoprazole Sodium [Protonix] 40 mg PO DAILY 10/02/12 lamoTRIgine [LaMICtal] 100 mg PO Q4HR 10/02/12 Allergies/Adverse Reactions: Allergies Allergy/AdvReac Type Severity Reaction Status Date / Time esomeprazole Allergy Mild unknown Verified 12/07/17 09:00 diazepam Allergy Unknown Hallucinati Verified 12/07/17 09:00 ons Penicillins Allergy Unknown Hallucinati Verified 12/07/17 09:00 ons blue dye Allergy Unknown Verified 12/07/17 09:00 azithromycin AdvReac tremors Verified 12/07/17 09:00 Anes History & Medical History - Anesthetic History Anesthesia Complications: reports: No previous complications Family history of Anesthesia Complications: Denies Family history of Malignant Hyperthermia: Denies - Medical History Cardiovascular: reports: None Pulmonary: reports: None Gastrointestinal: reports: GERD Urinary: reports: None Neuro: reports: None, Seizure disorder Musculoskeletal: reports: Osteoarthritis Endocrine/Autoimmune: reports: None Skin: reports: None Smoking Status: Former smoker Psychosocial: reports: No issues indicated - Surgical History General: Colonoscopy, EGD Eyes Ears Nose Throat (EENT): Cataracts, Tonsil/Adenoidectomy Gynecologic: Hysterectomy Orthopedic: Rotator cuff repair Exam General: Alert Dental: WNL Mouth Opening: Greater than 4 Fingerbreadths Neck Mobility: Reduced Mallampati classification: III Thyromental Distance: 4-6 cm Respiratory: Lungs clear, Normal breath sounds Cardiovascular: Regular rate Neurological: Normal speech Mental/Cognitive Status: Alert/Oriented X3 Cognitive Status: Within normal limits Plan Anesthesia Type: MAC Consent for Procedure(s) Verified and Reviewed: Yes Code Status: Attempt Resuscitation ASA classification: 2-Mild systemic disease Is this case an emergency?: No
[2018-03-08] MEDS ORDERED: PHENYLEPHRINE 2.5% OPHTH 2 ML DROPS LEFTEYE ONE ×2 (08:26→09:00)
[2018-03-08] MEDS ORDERED: CYCLOPENTOLATE 1% OPHTH DROPS 2 ML LEFTEYE ONE ×2 (08:26→09:00)
[2018-03-08] MEDS ORDERED: MIDAZOLAM 2 MG/2 ML VIAL IVP ONE (09:50)
[2018-03-08] MEDS ORDERED: BRIMONIDINE 0.2% OPHTH DROPS 5 ML OPTH ONE (09:54)
[2018-03-08] MEDS ORDERED: TIMOLOL 0.5% OPHTH DROPS OPTH ONE (09:55)
[2018-03-08] MEDS ORDERED: CHONDR SULF/HYALURONATE SYRINGE IO ONE (09:55)
[2018-03-08] MEDS ORDERED: EPINEPHrine 1 MG/ML AMP IVP ONE (09:55)
[2018-03-08] MEDS ORDERED: BSS/LIDOCAINE/EPINEPHRINE 1 ML SYRINGE IO ONE (10:04)
[2018-03-08] MEDS ORDERED: TRIAMCIN/MOXIFLOX OPHTHALMIC 0.6 ML VIAL IO ONE (10:04)
[2018-03-08 10:29] VITALS: BP 160/74
--- NOTE | 2018-03-08 12:49 | OPERATIVE REPORT ---
DATE OF SERVICE: 03/08/2018 Physician: Marcelo Ruiz MD PREOPERATIVE DIAGNOSIS: Visually significant cataract, left eye. Cataract surgery was performed on the right eye on 12/16/2017. POSTOPERATIVE DIAGNOSIS: Visually significant cataract, left eye. Cataract surgery was performed on the right eye on 12/16/2017. NAME OF PROCEDURE: Phacoemulsification and posterior chamber intraocular lens implant, left eye. SURGEON: Marcelo Ruiz MD. ANESTHESIA: Monitored anesthesia care. COMPLICATIONS: None. OPERATIVE INDICATIONS: This is a 72-year-old woman with progressive vision loss in the left eye, due to 2+ nuclear sclerotic and 3+ cortical cataract. Best corrected visual acuity was 20/30 with glare to 20/400 in the left eye. Indications for surgery were overall decrease in vision, difficulty seeing words on a computer screen, difficulty reading, difficulty seeing words, closed captions or game scores on TV, difficulty seeing street signs, difficulty driving in low light or at night, difficulty driving at night because of headlights of motor vehicles, and difficulty with glare or bright lights in any situation. She was consented at length concerning risks and benefits of cataract surgery, after which she expressed her desire to proceed with surgery. OPERATIVE PROCEDURE: The patient was taken into OR #3 and placed under monitored anesthesia care. A surgical timeout was conducted, confirming correct patient, correct procedure, and correct surgical site. She was placed under the LenSx laser and her eye docked to laser interface. The laser performed a capsulotomy, lens softening, and arcuate keratotomy incisions. (Phaco wounds were created manually at the microscope with keratomes as laser wounds would have interfered with the arcuate incisions). She was then moved to operating microscope, given topical anesthesia, and then prepped and draped in the usual sterile fashion. The eye was entered at the 6 and 3 o'clock positions. Intracameral Shugarcaine was injected into the anterior chamber, followed by Viscoat. The capsulorrhexis flap, created by the LenSx laser, was removed from the anterior chamber. The nucleus was hydrodissected and phacoemulsified. The cortex was evacuated, using automated infusion and aspiration. Provisc was injected in the capsular bag, and a 22.0-diopter intraocular lens inserted in the bag. Approximately, 0.8 mL extra triamcinolone, moxifloxacin, and vancomycin was injected subconjunctivally in the superior quadrant for infection and inflammation prophylaxis. I and A was used to evacuate the viscoelastic materials. The eye was inflated to physiologic pressure, using balanced salt solution, and found to be watertight. The patient was taken from the operating room in good condition and given postoperative instructions. TD: 03/08/2018 11:54 AUBREY
== END 2018-03-08 07:45 | disposition home or self-care (01) ==
LOC: SDS 07:44
PROVIDERS: ATTEND Ophthalmology
PROC: 08RK3JZ Replacement of Left Lens with Synthetic Substitute, Percutaneous Approach (ICD-10-PCS; principal; 2018-03-08 09:00)
DX: H25.812 Combined forms of age-related cataract, left eye (principal); G40.909 Epilepsy, unspecified, not intractable, without status epilepticus; Z87.891 Personal history of nicotine dependence; K21.9 Gastro-esophageal reflux disease without esophagitis
CPT/HCPCS: 66984; A9270; J3490; V2632

== ENCOUNTER 2018-05-03 07:40 | Outpatient (CLI) | payer MEDICARE, OTHER ==
[2018-05-03 08:08] LABS: BASOPHILS % (AUTO) 0.9 %; EOSINOPHILS % (AUTO) 0.8 %; HGB - HEMOGLOBIN 13.8 g/dL (12.0-16.0); LYMPHOCYTES # (AUTO) 1.2 10^3/uL (1.5-3.5); LYMPHOCYTES % (AUTO) 25.5 %; MEAN CORPUSCULAR HEMOGLOBIN 30.3 pg (27.0-31.0); MEAN CORPUSCULAR HGB CONC 33.8 g/dL (32.0-36.0); MEAN CORPUSCULAR VOLUME 89.6 fL (81.0-99.0); MEAN PLATELET VOLUME 7.5 fL (7.9-10.8); MONOCYTES # (AUTO) 0.7 10^3/uL (0.0-1.0); MONOCYTES % (AUTO) 14.9 %; NEUTROPHILS # (AUTO) 2.8 10^3/uL (1.5-6.6); NEUTROPHILS % (AUTO) 57.9 %; PLT - PLATELET COUNT 271 10^3/uL (130-450); RED BLOOD COUNT 4.56 10^6/uL (4.20-5.40); RED CELL DISTRIBUTION WIDTH 13.6 % (12.0-15.0); WHITE BLOOD COUNT 4.8 x10^3/uL (4.8-10.8)
[2018-05-03 08:13] LABS: ALBUMIN 4.3 g/dL (3.2-5.5); ALBUMIN/GLOBULIN RATIO 1.6 (1.0-2.2); BILIRUBIN,TOTAL 0.5 mg/dL (0.2-1.0); CALCIUM 9.3 mg/dL (8.5-10.3); CREATININE 0.9 mg/dL (0.4-1.0)
== END 2018-05-03 07:41 | disposition home or self-care (01) ==
LOC: LAB 07:40
PROVIDERS: ATTEND Internal Medicine
DX: M85.80 Other specified disorders of bone density and structure, unspecified site (principal); R56.9 Unspecified convulsions; Z79.899 Other long term (current) drug therapy
CPT/HCPCS: 36415; 80053; 80175; 84443; 85025

== ENCOUNTER 2018-05-15 09:48 | Outpatient (CLI) | payer MEDICARE, OTHER | END 2018-05-15 09:49 | disposition home or self-care (01) | LOC: LAB 09:48 | PROVIDERS: ATTEND Internal Medicine | DX: M19.90 Unspecified osteoarthritis, unspecified site (principal) | CPT/HCPCS: 36415; 85651; 86140 ==

== ENCOUNTER 2018-06-06 13:08 | Outpatient (CLI) | payer MEDICARE, OTHER ==
--- NOTE | 2018-06-07 08:37 | Mammography Report ---
Reason: SCREENING MAMMOGRAM Procedure Date: 06/06/2018 Accession Number: [id number] / [id number] Procedure: JASPER - Screening Mammo w/Ti CPT Code: FULL RESULT: EXAM: Screening Mammo w/Ti DATE: 06/06/2018 4:30 PM CLINICAL HISTORY: Screening encounter. History of nulliparity and history of hormone therapy for approximately 40 years. Previous breast biopsy approximately 1985. TECHNIQUE: Bilateral CC and MLO views were obtained. A right medially exaggerated CC view was obtained. COMPARISON: 05/17/2017 through 04/30/2013. FINDINGS: The breasts demonstrate scattered fibroglandular densities bilaterally. Postoperative changes in the left breast and coarse calcifications in the right breast demonstrate typically benign appearance. No suspicious masses, clustered microcalcifications, or regions of architectural distortion are identified. IMPRESSION: Benign findings RECOMMENDATION: Routine annual screening unless otherwise clinically indicated. BIRADS CATEGORY 2: Benign findings STANDARD QUALIFYING STATEMENTS: 1. This examination was not reviewed with the aid of Computer-Aided Detection (CAD). 2. A negative or benign imaging report should not preclude biopsy if clinically suspicious findings are present. 3. Dense breasts may obscure an underlying neoplasm. 4. This examination was reviewed with the aid of 3D breast imaging (tomosynthesis).
== END 2018-06-06 13:09 | disposition home or self-care (01) ==
LOC: DI 13:08
PROVIDERS: ATTEND Internal Medicine
DX: Z12.31 Encounter for screening mammogram for malignant neoplasm of breast (principal)
CPT/HCPCS: 77063; 77067

== ENCOUNTER 2018-09-20 14:45 | Emergency (ER) | payer MEDICARE, OTHER ==
[2018-09-20 14:53] VITALS: BP 149/69
[2018-09-20] MEDS ORDERED: PROPARACAINE 0.5% OPHTH DROPS 15 ML EACHEYE STA (15:26)
--- NOTE | 2018-09-20 15:42 | ED Physician Documentation ---
PD HPI OPHTHO - Stated complaint Stated Complaint: EYE INJ - Chief complaint Chief Complaint: Heent - History obtained from History obtained from: Patient - History of Present Illness Timing - onset: How many hours ago (2) Pain level max: 3 Pain level now: 1 Location: Right Quality / character: Aching Associated symptoms: Redness, Tearing, FB sensation. No: Photophobia, Double vision, Decreased vision, Loss of vision Contributing factors: Blunt trauma (Was picking up sticks in the yard when one poked her in the right eye). 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 HEENT: Cataracts, Tonsil/Adenoidectomy - Present Medications Home Medications: Ambulatory Orders Medication Instructions Recorded Confirmed Pantoprazole Sodium [Protonix] 40 mg PO DAILY 10/02/12 03/08/18 lamoTRIgine [LaMICtal] 100 mg PO Q4HR 10/02/12 03/08/18 Polymyxin B/Trimeth Ophth Drop 1 drops RIGHTEYE Q3H 7 Days #1 09/20/18 [Polytrim Ophth Drops] bottle - Allergies Allergies/Adverse Reactions: Allergies Allergy/AdvReac Type Severity Reaction Status Date / Time esomeprazole Allergy Mild unknown Verified 09/20/18 14:51 diazepam Allergy Unknown Hallucinati Verified 09/20/18 14:51 ons Penicillins Allergy Unknown Hallucinati Verified 09/20/18 14:51 ons blue dye Allergy Unknown Verified 09/20/18 14:51 azithromycin AdvReac tremors Verified 09/20/18 14:51 - Social History Does the pt smoke?: No Smoking Status: Never smoker Does the pt drink ETOH?: No Does the pt have substance abuse?: No - Immunizations Immunizations are current?: Yes Immunizations: TDAP current <10years - POLST Patient has POLST: No POLST Status: Full Code PD ED PE NORMAL - Vitals Vital signs reviewed: Yes - General General: Alert and oriented X 3, No acute distress, Well developed/nourished - HEENT HEENT: PERRL, Moist mucous membranes, Other (Right eye mild conjunctival injection. Clear tearing. Fluorescein uptake in a small 0.5 cm area to the superior aspect of the cornea. Eyelids everted with no foreign body visible. No foreign body embedded in the cornea) - Neck Neck: Supple, no meningeal sign - Derm Derm: Warm and dry - Neuro Neuro: Alert and oriented X 3 - Psych Psych: Normal mood, Normal affect Results - Vitals Vitals: Vital Signs - 24 hr 09/20/18 14:47 Temperature 36.7 C Heart Rate 77 Respiratory 16 Rate Blood Pressure 149/69 H O2 Saturation 95 Oxygen O2 Source Room air PD MEDICAL DECISION MAKING - ED course Complexity details: considered differential, d/w patient ED course: Patient with a right eye corneal abrasion. Will place on Polytrim ophthalmic and follow-up with her doctor. Patient counseled regarding signs and symptoms for which I believe and urgent re-evaluation would be necessary. Patient with good understanding of and agreement to plan and is comfortable going home at this time This document was made in part using voice recognition software. While efforts are made to proofread this document, sound alike and grammatical errors may occur. Negative Walter sign. No evidence of globe rupture. Normal pupil Last tetanus was 2014 Departure - Departure Disposition: 01 Home, Self Care Clinical Impression: Corneal abrasion, right Qualifiers: Encounter type: initial encounter Qualified Code(s): S05.01XA - Injury of conjunctiva and corneal abrasion without foreign body, right eye, initial encounter Condition: Good Instructions: ED Eye Injury Corneal Abrasion Follow-Up: Honorio Lance MD [Primary Care Provider] - Within 3 Days Prescriptions: Polymyxin B/Trimeth Ophth Drop [Polytrim Ophth Drops] 1 drops RIGHTEYE Q3H 7 Days #1 bottle Comments: Use the antibiotic eye drops as prescribed. Return if you worsen. 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
== END 2018-09-20 15:45 | disposition home or self-care (01) ==
LOC: ED 14:45
DX: S05.01XA Injury of conjunctiva and corneal abrasion without foreign body, right eye, initial encounter (principal); W22.8XXA Striking against or struck by other objects, initial encounter; Y93.H2 Activity, gardening and landscaping
CPT/HCPCS: 99283; J3490

== ENCOUNTER 2018-10-28 17:41 | Emergency (ER) | payer MEDICARE, OTHER ==
--- NOTE | 2018-10-28 18:00 | ED Physician Documentation ---
History of Present Illness - Stated complaint Stated Complaint: R RIB PAIN - Chief complaint Chief Complaint: Back Pain - History obtained from History obtained from: Patient - History of Present Illness Timing: How many days ago (2) - Additonal information Additional information: This is a 73-year-old woman who was at a conference 2 days ago and she somehow slipped out of her shoe and fell landing on her knees. She kind of reached out with her right arm trying to catch herself although she did not actually impact onto anything. That night at the convention she did not want to make that big of a deal out of it but she had a very difficult time sleeping and is up taking about 6 Advil without any relief of the pain through the night and then got up yesterday and it felt better. Again last night she had trouble getting comfortable despite taking Advil. She ended up taking 2 Advil this morning and the pain is just been getting increasingly more severe. Is not radiating anywhere. There is no bruising that she is seen. It does hurt more to push along the lateral rib margin. She does not feel short of breath. She felt a little dizzy through the night last night so she increased her water intake today and is not felt dizzy. No hematuria no pain date radiating down the arm or legs. Review of Systems Cardiac: reports: Chest pain / pressure. 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 HEENT: Cataracts, Tonsil/Adenoidectomy - Present Medications Home Medications: Ambulatory Orders Medication Instructions Recorded Confirmed Pantoprazole Sodium [Protonix] 40 mg PO DAILY 10/02/12 03/08/18 lamoTRIgine [LaMICtal] 100 mg PO Q4HR 10/02/12 03/08/18 Polymyxin B/Trimeth Ophth Drop 1 drops RIGHTEYE Q3H 7 Days #1 09/20/18 [Polytrim Ophth Drops] bottle Hydrocodone/Acetaminophen 1 - 2 each PO Q6H PRN #10 tablet 10/28/18 [Hydrocodon-Acetaminophen 5-325] RX: HYDROcod/ACET 5/325 Prepack 4 1 bottle PO ONCE #1 bottle 10/28/18 [NORCO 5/325 Prepack 4] RX: oxyCODONE/ACET 5/325 Prepack 4 1 bottle PO ONCE #1 bottle 10/28/18 [PERCOCET 5 MG/325 MG Prepack 4] - Allergies Allergies/Adverse Reactions: Allergies Allergy/AdvReac Type Severity Reaction Status Date / Time esomeprazole Allergy Mild unknown Verified 10/28/18 17:48 diazepam Allergy Unknown Hallucinati Verified 10/28/18 17:48 ons Penicillins Allergy Unknown Hallucinati Verified 10/28/18 17:48 ons blue dye Allergy Unknown Verified 10/28/18 17:48 azithromycin AdvReac tremors Verified 10/28/18 17:48 - Social History Does the pt smoke?: No Smoking Status: Never smoker Does the pt drink ETOH?: No Does the pt have substance abuse?: No - Immunizations Immunizations are current?: Yes Immunizations: TDAP current <10years - POLST Patient has POLST: No POLST Status: Full Code PD ED PE NORMAL - Vitals Vital signs reviewed: Yes - General General: Alert and oriented X 3, No acute distress, Well developed/nourished, Other (Sitting in wheelchair with her left arm wrapped around the right side of her chest holding it as if splinting) - HEENT HEENT: Atraumatic - Cardiac Cardiac: RRR, No murmur - Respiratory Respiratory: No respiratory distress, Clear bilaterally, Other (She is tender to palpation along the right lateral rib margin. No subcu emphysema crepitus or crepitance.) - Abdomen Abdomen: Normal bowel sounds, Soft, No organomegaly, Other (No pain in the right upper quadrant) - Derm Derm: Other (There is some bruising along the right lateral abdominal wall and flank area. It is tender to the touch.) - Extremities Extremities: No deformity - Neuro Neuro: Alert and oriented X 3, No motor deficit, No sensory deficit Results - Vitals Vitals: Vital Signs - 24 hr 10/28/18 10/28/18 17:47 19:41 Temperature 36.9 C Heart Rate 73 57 L Respiratory 18 16 Rate Blood Pressure 171/77 H 197/97 H O2 Saturation 99 98 Oxygen O2 Source Room air - Rads (name of study) CXR Radiology: See rad report (No Pneumothorax or pulmonary contusion) Departure - Departure Disposition: 01 Home, Self Care Clinical Impression: Chest wall pain Condition: Good Instructions: ED Strain Chest Wall Follow-Up: Honorio Lance MD [Primary Care Provider] - Prescriptions: RX: HYDROcod/ACET 5/325 Prepack 4 [NORCO 5/325 Prepack 4] 1 bottle PO ONCE #1 bottle Hydrocodone/Acetaminophen [Hydrocodon-Acetaminophen 5-325] 1 - 2 each PO Q6H PRN #10 tablet PRN Reason: pain RX: oxyCODONE/ACET 5/325 Prepack 4 [PERCOCET 5 MG/325 MG Prepack 4] 1 bottle PO ONCE #1 bottle Comments: May take hydrocodone if needed for pain. Do not take more than 8 tablets in a 24-hour period do not take additional Tylenol with it. Ice the area that is hurting. Use a pillow or hold your arm against the right chest wall if you need to cough, laugh or sneeze. Follow-up with your primary care provider for further management of the pain if not improving. Discharge Date/Time: 10/28/18 20:07
[2018-10-28] MEDS ORDERED: HYDROcod/ACETAM 5/325 MG TABLET PO STA ×2 (18:21→19:21)
--- NOTE | 2018-10-28 19:29 | XRAY Report ---
Reason: cough Procedure Date: 10/28/2018 Accession Number: [id number] / [id number] Procedure: XR - Chest 2 View X-Ray CPT Code: 81389 FULL RESULT: EXAM: CHEST RADIOGRAPHY EXAM DATE: 10/28/2018 07:00 PM. CLINICAL HISTORY: Cough. COMPARISON: CHEST 2 VIEW 08/24/2017 3:09 PM. TECHNIQUE: 2 views. FINDINGS: Lungs/Pleura: Mild right basilar atelectasis. No focal opacities evident. No pleural effusion. No pneumothorax. Normal volumes. Mediastinum: Heart and mediastinal contours are unremarkable. Other: Status post right rotator cuff repair. IMPRESSION: No acute cardiopulmonary process. RADIA
[2018-10-28 19:42] VITALS: BP 197/97
[2018-10-28] MEDS ORDERED: HYDROcod/ACET 5/325 Prepack 4 PO STA (19:51)
== END 2018-10-28 20:07 | disposition home or self-care (01) ==
LOC: ED 17:41
DX: R07.89 Other chest pain (principal); S30.1XXA Contusion of abdominal wall, initial encounter; W01.0XXA Fall on same level from slipping, tripping and stumbling without subsequent striking against object, initial encounter; Y92.29 Other specified public building as the place of occurrence of the external cause
CPT/HCPCS: 71046; 99283; 99284; A9270

== ENCOUNTER 2018-11-26 18:50 | Emergency (ER) | payer MEDICARE, OTHER ==
[2018-11-26] MEDS ORDERED: BACITRACIN OINT TOP STA (21:20)
--- NOTE | 2018-11-26 21:21 | ED Physician Documentation ---
PD HPI LOWER EXT INJURY - Stated complaint Stated Complaint: L FOOT LAC - Chief complaint Chief Complaint: Ext Problem - History obtained from History obtained from: Patient - History of Present Illness PD HPI LOW EXT INJURY LOCATION: Left, Foot Type of injury: Laceration Where injury occurred: Home Timing - onset: How many hours ago (1) Timing - duration: Hours (1) Timing - details: Abrupt onset Pain level max: 3 Pain level now: 3 Improved by: Rest Worsened by: Moving, Palpating - Additional information Additional information: concerned about possible glass in her foot. 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 HEENT: Cataracts, Tonsil/Adenoidectomy - Present Medications Home Medications: Ambulatory Orders Medication Instructions Recorded Confirmed Pantoprazole Sodium [Protonix] 40 mg PO DAILY 10/02/12 03/08/18 lamoTRIgine [LaMICtal] 100 mg PO Q4HR 10/02/12 03/08/18 Polymyxin B/Trimeth Ophth Drop 1 drops RIGHTEYE Q3H 7 Days #1 09/20/18 [Polytrim Ophth Drops] bottle HYDROcod/ACET 5/325 Prepack 4 1 bottle PO ONCE #1 bottle 10/28/18 [NORCO 5/325 Prepack 4] Hydrocodone/Acetaminophen 1 - 2 each PO Q6H PRN #10 tablet 10/28/18 [Hydrocodon-Acetaminophen 5-325] oxyCODONE/ACET 5/325 Prepack 4 1 bottle PO ONCE #1 bottle 10/28/18 [PERCOCET 5 MG/325 MG Prepack 4] - Allergies Allergies/Adverse Reactions: Allergies Allergy/AdvReac Type Severity Reaction Status Date / Time esomeprazole Allergy Mild unknown Verified 11/26/18 18:58 diazepam Allergy Unknown Hallucinati Verified 11/26/18 18:58 ons Penicillins Allergy Unknown Hallucinati Verified 11/26/18 18:58 ons blue dye Allergy Unknown Verified 11/26/18 18:58 azithromycin AdvReac tremors Verified 11/26/18 18:58 - Social History Does the pt smoke?: No Smoking Status: Never smoker Does the pt drink ETOH?: No Does the pt have substance abuse?: No - Immunizations Immunizations are current?: Yes Immunizations: TDAP current <10years - POLST Patient has POLST: No POLST Status: Full Code PD ED PE NORMAL - Vitals Vital signs reviewed: Yes - General General: Alert and oriented X 3, No acute distress - Derm Derm: Warm and dry - Extremities Extremities: Other (Left foot 1 cm, superficial laceration. No palpable foreign bodies. Neurovascular intact Laceration is on the medial plantar aspect of the foot) - Neuro Neuro: Alert and oriented X 3 Results - Vitals Vitals: Vital Signs - 24 hr 11/26/18 11/26/18 18:57 21:39 Temperature 36.5 C 36.5 C Heart Rate 65 57 L Respiratory 20 18 Rate Blood Pressure 163/74 H 180/68 H O2 Saturation 95 96 Oxygen O2 Source Room air - Rads (name of study) Left foot x-ray Radiology: Prelim report reviewed, EMP read contemporaneously, See rad report (No acute abnormalities.) PD MEDICAL DECISION MAKING - ED course Complexity details: considered differential, d/w patient ED course: Patient with a superficial laceration to the left foot. Does not require any repair. No foreign body on exam or x-ray. Bacitracin and a Band-Aid were placed over the wound. Warnings of infection and instructions on wound care given at bedside. Also counseled on how to minimize scarring. Patient counseled regarding signs and symptoms for which I believe and urgent re-evaluation would be necessary. Patient with good understanding of and agreement to plan and is comfortable going home at this time This document was made in part using voice recognition software. While efforts are made to proofread this document, sound alike and grammatical errors may occur. Tetanus is up-to-date Departure - Departure Disposition: 01 Home, Self Care Clinical Impression: Laceration of left foot Qualifiers: Encounter type: initial encounter Qualified Code(s): S91.312A - Laceration without foreign body, left foot, initial encounter Condition: Good Instructions: ED Laceration Foot Follow-Up: Honorio Lance MD [Primary Care Provider] - As Needed Comments: Follow-up with your doctor if you notice redness, swelling or drainage from the wound. Return if you worsen. Discharge Date/Time: 11/26/18 21:42
--- NOTE | 2018-11-26 21:36 | XRAY Report ---
Reason: L foot laceration, poss FB, glass? Procedure Date: 11/26/2018 Accession Number: [id number] / [id number] Procedure: XR - Foot 3 View LT CPT Code: FULL RESULT: EXAM: LEFT FOOT RADIOGRAPHY EXAM DATE: 11/26/2018 09:10 PM. CLINICAL HISTORY: L foot laceration, poss FB, glass?. COMPARISON: FOOT 3 VIEW LT 03/20/2017 10:36 AM. TECHNIQUE: 3 views. FINDINGS: Bones: No acute fractures or suspicious bone lesions. Joints: No subluxations. Soft Tissues: No radiopaque foreign bodies. IMPRESSION: No radiopaque foreign bodies. No acute fractures. RADIA
[2018-11-26 21:39] VITALS: BP 180/68
== END 2018-11-26 21:42 | disposition home or self-care (01) ==
LOC: ED 18:50
DX: S91.312A Laceration without foreign body, left foot, initial encounter (principal); W45.8XXA Other foreign body or object entering through skin, initial encounter; Y92.009 Unspecified place in unspecified non-institutional (private) residence as the place of occurrence of the external cause
CPT/HCPCS: 73630; 99282; 99283; A9270

== ENCOUNTER 2019-05-20 12:34 | Emergency (ER) | payer MEDICARE, OTHER ==
[2019-05-20 15:34] VITALS: BP 175/75
--- NOTE | 2019-05-20 15:49 | ED Physician Documentation ---
History of Present Illness - Stated complaint Stated Complaint: HIGH BLOOD PRESSURE - Chief complaint Chief Complaint: Cardiac - History obtained from History obtained from: Patient - History of Present Illness Timing: How many days ago (2-3) Pain level max: 4 Pain level now: 3 - Additonal information Additional information: 74-year-old female presents to the emergency department stating that she has had intermittent headaches and bilateral ear pressure for the past several days. Worse with movement and better with rest. Took Aleve without relief. She took her blood pressure today and noted that the systolic was in the 190s. This is high for her. She called her doctor who stated that he could not see her today and to come to the emergency department. No chest pain. No shortness of breath. No vision changes. No neurological deficits. Review of Systems Constitutional: denies: Fever, Chills Nose: reports: Congestion, Sinus pressure / pain. denies: Rhinorrhea / runny nose Throat: denies: Sore throat Respiratory: denies: Cough GI: denies: Nausea, Vomiting, Diarrhea Skin: denies: Rash Musculoskeletal: denies: Neck pain, Back pain PD PAST MEDICAL HISTORY - Past Medical History Cardiovascular: None Respiratory: None Neuro: Seizure disorder Endocrine/Autoimmune: None GI: GERD CARTOON ARTIST: None : None HEENT: None Psych: None Musculoskeletal: Osteoarthritis Derm: None - Past Surgical History Past Surgical History: Yes General: Colonoscopy, EGD Ortho: Rotator cuff repair /CARTOON ARTIST: Hysterectomy HEENT: Cataracts, Tonsil/Adenoidectomy - Present Medications Home Medications: Ambulatory Orders Medication Instructions Recorded Confirmed Pantoprazole Sodium [Protonix] 40 mg PO DAILY 10/02/12 03/08/18 lamoTRIgine [LaMICtal] 100 mg PO Q4HR 10/02/12 03/08/18 Polymyxin B/Trimeth Ophth Drop 1 drops RIGHTEYE Q3H 7 Days #1 09/20/18 [Polytrim Ophth Drops] bottle HYDROcod/ACET 5/325 Prepack 4 1 bottle PO ONCE #1 bottle 10/28/18 [NORCO 5/325 Prepack 4] Hydrocodone/Acetaminophen 1 - 2 each PO Q6H PRN #10 tablet 10/28/18 [Hydrocodon-Acetaminophen 5-325] oxyCODONE/ACET 5/325 Prepack 4 1 bottle PO ONCE #1 bottle 10/28/18 [PERCOCET 5 MG/325 MG Prepack 4] Cetirizine HCl/Pseudoephedrine 1 each PO BID PRN #30 tab.er.12h 05/20/19 [Zyrtec-D Tablet] Fluticasone [Flonase] 1 sprays RYAN BID PRN #1 bottle 05/20/19 - Allergies Allergies/Adverse Reactions: Allergies Allergy/AdvReac Type Severity Reaction Status Date / Time esomeprazole Allergy Mild unknown Verified 05/20/19 12:49 diazepam Allergy Unknown Hallucinati Verified 05/20/19 12:49 ons Penicillins Allergy Unknown Hallucinati Verified 05/20/19 12:49 ons blue dye Allergy Unknown Verified 05/20/19 12:49 azithromycin AdvReac tremors Verified 05/20/19 12:49 - Social History Does the pt smoke?: No Smoking Status: Never smoker Does the pt drink ETOH?: No Does the pt have substance abuse?: No - Immunizations Immunizations are current?: Yes Immunizations: TDAP current <10years - POLST Patient has POLST: No POLST Status: Full Code PD ED PE NORMAL - Vitals Vital signs reviewed: Yes - General General: Alert and oriented X 3, No acute distress, Well developed/nourished - HEENT HEENT: PERRL, Ears normal, Moist mucous membranes, Other (Posterior oropharyngeal cobblestoning. No trismus. Normal phonation.) - Neck Neck: Supple, no meningeal sign - Cardiac Cardiac: RRR, Strong equal pulses - Respiratory Respiratory: No respiratory distress, Clear bilaterally - Derm Derm: Warm and dry - Neuro Neuro: Alert and oriented X 3, reconstructive surgeon 2-12 intact, No motor deficit, No sensory deficit, Normal speech, Other (NIH stroke scale of 0 ) Eye Opening: Spontaneous Motor: Obeys Commands Verbal: Oriented GCS Score: 15 - Psych Psych: Normal mood, Normal affect Results - Vitals Vitals: Vital Signs - 24 hr 05/20/19 05/20/19 05/20/19 12:41 15:28 15:31 Temperature 36.5 C 36.4 C L Heart Rate 63 59 L Respiratory 18 16 Rate Blood Pressure 149/89 H 187/75 H Blood Pressure 175/75 H [Left] Blood Pressure 174/75 H [Right] O2 Saturation 98 97 Oxygen O2 Source Room air PD MEDICAL DECISION MAKING - ED course Complexity details: considered differential, d/w patient ED course: 74-year-old female with asymptomatic hypertension. She also appears to have sinusitis. No fevers. Will hold antibiotics. Will place on decongestants. Patient counseled regarding signs and symptoms for which I believe and urgent re-evaluation would be necessary. Patient with good understanding of and agreement to plan and is comfortable going home at this time This document was made in part using voice recognition software. While efforts are made to proofread this document, sound alike and grammatical errors may occur. Departure - Departure Disposition: Home, Self Care Clinical Impression: Sinus congestion Hypertension Qualifiers: Hypertension type: unspecified Qualified Code(s): I10 - Essential (primary) hypertension Condition: Good Instructions: ED Sinusitis No Abx Follow-Up: Honorio Lance MD [Primary Care Provider] - Within 1 week Prescriptions: Cetirizine HCl/Pseudoephedrine [Zyrtec-D Tablet] 1 each PO BID PRN #30 tab.er.12h PRN Reason: nasal congestion Fluticasone [Flonase] 1 sprays RYAN BID PRN #1 bottle PRN Reason: nasal congestion Comments: Return if you worsen. Only use the Zyrtec-D if the Flonase is not working. Follow-up with your doctor for further care.
== END 2019-05-20 16:03 | disposition home or self-care (01) ==
LOC: ED 12:34
DX: J01.90 Acute sinusitis, unspecified (principal); I10 Essential (primary) hypertension
CPT/HCPCS: 99282; 99284

== ENCOUNTER 2020-02-17 07:07 | Outpatient (CLI) | payer MEDICARE, OTHER ==
[2020-02-17 07:26] LABS: BASOPHILS % (AUTO) 0.3 %; EOSINOPHILS # (AUTO) 0.1 10^3/uL (0.0-0.7); HGB - HEMOGLOBIN 14.4 g/dL (12.0-16.0); LYMPHOCYTES # (AUTO) 1.4 10^3/uL (1.5-3.5); LYMPHOCYTES % (AUTO) 24.2 %; MEAN CORPUSCULAR HEMOGLOBIN 30.5 pg (27.0-31.0); MEAN CORPUSCULAR HGB CONC 32.8 g/dL (32.0-36.0); MEAN PLATELET VOLUME 8.7 fL (7.9-10.8); MONOCYTES # (AUTO) 0.8 10^3/uL (0.0-1.0); MONOCYTES % (AUTO) 14.1 %; NEUTROPHILS # (AUTO) 3.6 10^3/uL (1.5-6.6); NEUTROPHILS % (AUTO) 60.1 %; PLT - PLATELET COUNT 284 10^3/uL (130-450); RED BLOOD COUNT 4.72 10^6/uL (4.20-5.40); RED CELL DISTRIBUTION WIDTH 13.1 % (12.0-15.0); WHITE BLOOD COUNT 5.9 x10^3/uL (4.8-10.8)
[2020-02-17 07:43] LABS: ALBUMIN 4.2 g/dL (3.2-5.5); ALBUMIN/GLOBULIN RATIO 1.4 (1.0-2.2); ALKALINE PHOSPHATASE 61 IU/L (42-121); ALT ALANINE AMINOTRANSFERASE 16 IU/L (10-60); AST ASPARTATE AMINOTRANSFERASE 21 IU/L (10-42); BILIRUBIN,TOTAL 0.5 mg/dL (0.2-1.0); BUN - BLOOD UREA NITROGEN 21 mg/dL (6-20); CALCIUM 9.6 mg/dL (8.5-10.3); CARBON DIOXIDE - CO2 25 mmol/L (21-32); CHLORIDE 104 mmol/L (101-111); CHOL/HDL RATIO 2.8 (<4.4); CHOLESTEROL 179 mg/dL; GLUCOSE 106 mg/dL (70-100); HDL CHOLESTEROL 63 mg/dL; LDL CHOLESTEROL,CALCULATED 104 mg/dL; LDL/HDL RATIO 1.7 (<4.4); SODIUM 138 mmol/L (135-145); TOTAL PROTEIN 7.2 g/dL (6.7-8.2); VLDL CHOLESTEROL 12 mg/dL
[2020-02-19 12:39] LABS: HEMOGLOBIN A1c% 5.3 % (4.27-6.07)
== END 2020-02-17 07:08 | disposition home or self-care (01) ==
LOC: LAB 07:07
PROVIDERS: ATTEND Internal Medicine
DX: R73.01 Impaired fasting glucose (principal); Z79.899 Other long term (current) drug therapy; Z13.6 Encounter for screening for cardiovascular disorders; K21.9 Gastro-esophageal reflux disease without esophagitis; G40.909 Epilepsy, unspecified, not intractable, without status epilepticus
CPT/HCPCS: 36415; 80053; 80061; 80175; 83036; 83721; 84443; 85025

== ENCOUNTER 2020-04-22 13:20 | Outpatient (CLI) | payer MEDICARE, OTHER ==
--- NOTE | 2020-04-23 05:38 | DEXA Report ---
PROCEDURE: Dexa Spine and/or Hip INDICATIONS: POST MENOPAUSAL TECHNIQUE: Dual energy x-ray absorptiometry (DXA) was performed on a [employer] System. Regions measur ed are the AP Spine, femoral neck, and if needed forearm. COMPARISON: None. FINDINGS: Lumbar Spine: Bone Mineral Density 1.151 g/cm/cm,T score -0.2, compared to -0.5. Normal bone density. Left Hip: Bone Mineral Density 0.941 g/cm/cm,T score -0.5, compared to -0.5. Normal bone density Left Femoral Neck: Bone Mineral Density 0.824 g/cm/cm, T score -1.5, compared to -1.4, mild osteopenia. (T score greater or equal to -1.0: NORMAL) (T score from -1.1 to -2.4: OSTEOPENIA) (T score less than or equal to -2.5 to: OSTEOPOROSIS) Impression: Minimally progressive mild osteopenia within the left femoral neck. Patients with diagnosis of osteoporosis or osteopenia should have regular bone mineral density assess ment. For those eligible for Medicare, routine testing is allowed once every 2 years. Testing frequ ency can be increased for patients who have rapidly progressing disease or for those who are receivin g medical therapy to restore bone mass. Reviewed by: Jackie Glover MD on 04/22/2020 1:45 PM [facility] Approved by: Jackie Glover MD on 04/22/2020 1:45 PM [facility] Station ID: [id number]
== END 2020-04-22 13:21 | disposition home or self-care (01) ==
LOC: DI 13:20
PROVIDERS: ATTEND Internal Medicine
DX: Z13.820 Encounter for screening for osteoporosis (principal); M85.88 Other specified disorders of bone density and structure, other site
CPT/HCPCS: 77080

== ENCOUNTER 2020-04-22 13:22 | Outpatient (CLI) | payer MEDICARE, OTHER ==
--- NOTE | 2020-04-24 13:16 | Mammography Report ---
BILATERAL DIGITAL SCREENING MAMMOGRAM 3D/2D: 04/22/2020 CLINICAL: Routine screening. Comparison is made to exams dated: 06/06/2018 mammogram, 05/25/2017 mammogram, 05/17/2016 mammogram, 07/15/2014 mammogram, 04/30/2013 mammogram, and 05/05/2011 mammogram - [facility]. Th e tissue of both breasts is predominantly fatty. No significant masses, calcifications, or other findings are seen in either breast. There has been no significant interval change. IMPRESSION: NEGATIVE There is no mammographic evidence of malignancy. A 1 year screening mammogram is recommended. This exam was interpreted at Station ID: [id number]. NOTE: For mammograms, a report in lay terms will be sent to the patient. Approximately 15% of breast malignancies will not be visualized mammographically. In the management of a palpable breast mass, a negative mammogram must not discourage biopsy of a clinically suspicious lesion. Electronically Signed By: Toni Parrish M.D., jr/ryan:04/22/2020 15:29:15 ACR BI-RADS Category 1: Negative 3341F PARENCHYMAL PATTERN: (F) - The breast(s) demonstrate(s) diffuse fatty replacement. BI-RADS CATEGORY: (1) - 1 RECOMMENDATION: (ANNUAL) - Recommend routine annual screening mammography. [id number] 1 year screening LATERALITY: (B)
== END 2020-04-22 13:23 | disposition home or self-care (01) ==
LOC: DI 13:22
PROVIDERS: ATTEND Internal Medicine
DX: Z12.31 Encounter for screening mammogram for malignant neoplasm of breast (principal)
CPT/HCPCS: 77063; 77067

== ENCOUNTER 2021-02-25 01:22 | Emergency (ER) | payer MEDICARE, OTHER ==
--- NOTE | 2021-02-25 01:52 | ED Physician Documentation ---
History of Present Illness - Stated complaint Stated Complaint: HIGH BP - Chief complaint Chief Complaint: Neuro - History obtained from History obtained from: Patient - Additonal information Additional information: 75yF with pmh sdh, seizure disorder, p/w worst headache of life awaking her from sleep early this morning. headache was sudden onset on waking, constant, located in L temporal area radiating to occiput, 10/10, not relieved with two 325 asa that she took at home. patient states when she sleeps on the left side it causes severe pain and she thinks she accidentally flipped onto her left side then awoke, feeling panicked. she took her BP which was elevated so came to the emergency department. endorses subjective dizziness but denies cp, soa, nausea, fevers, cough, abd pain back pain diarrhea neuro deficit, weakness, or photophobia. Review of Systems Ten Systems: 10 systems reviewed and negative Constitutional: denies: Fever, Chills GI: denies: Nausea, Vomiting Neurologic: reports: Headache. denies: Generalized weakness, Focal weakness, Numbness, Head injury PD PAST MEDICAL HISTORY - Past Medical History Past Medical History: Yes Cardiovascular: None Respiratory: None Neuro: Seizure disorder Endocrine/Autoimmune: None GI: GERD PATIENT PARTNER: None : None HEENT: None Psych: None Musculoskeletal: Osteoarthritis Derm: None - Past Surgical History Past Surgical History: Yes General: Colonoscopy, EGD Ortho: Rotator cuff repair /PATIENT PARTNER: Hysterectomy HEENT: Cataracts, Tonsil/Adenoidectomy - Present Medications Home Medications: Ambulatory Orders Medication Instructions Recorded Confirmed Pantoprazole Sodium [Protonix] 40 mg PO DAILY 10/02/12 03/08/18 lamoTRIgine [LaMICtal] 100 mg PO Q4HR 10/02/12 03/08/18 Polymyxin B/Trimeth Ophth Drop 1 drops RIGHTEYE Q3H 7 Days #1 09/20/18 [Polytrim Ophth Drops] bottle HYDROcod/ACET 5/325 Prepack 4 1 bottle PO ONCE #1 bottle 10/28/18 [NORCO 5/325 Prepack 4] Hydrocodone/Acetaminophen 1 - 2 each PO Q6H PRN #10 tablet 10/28/18 [Hydrocodon-Acetaminophen 5-325] oxyCODONE/ACET 5/325 Prepack 4 1 bottle PO ONCE #1 bottle 06/02/19 [PERCOCET 5 MG/325 MG Prepack 4] Cetirizine HCl/Pseudoephedrine 1 each PO BID PRN #30 tab.er.12h 05/20/19 [Zyrtec-D Tablet] Fluticasone [Flonase] 1 sprays RYAN BID PRN #1 bottle 05/20/19 - Allergies Allergies/Adverse Reactions: Allergies Allergy/AdvReac Type Severity Reaction Status Date / Time esomeprazole Allergy Mild unknown Verified 02/25/21 01:29 diazepam Allergy Unknown Hallucinati Verified 02/25/21 01:29 ons Penicillins Allergy Unknown Hallucinati Verified 02/25/21 01:29 ons blue dye Allergy Unknown Verified 02/25/21 01:29 azithromycin AdvReac tremors Verified 02/25/21 01:29 - Social History Does the pt smoke?: No Smoking Status: Never smoker Does the pt drink ETOH?: No Does the pt have substance abuse?: No - Immunizations Immunizations are current?: Yes Immunizations: TDAP current <10years - POLST Patient has POLST: No POLST Status: Full Code PD ED PE NORMAL - Vitals Vital signs reviewed: Yes - General General: Alert and oriented X 3, Other (uncomfortable appearing. head is flexed to right side. ) - HEENT HEENT: Atraumatic, PERRL, EOMI, Moist mucous membranes, Pharynx benign - Neck Neck: Supple, no meningeal sign - Cardiac Cardiac: RRR - Respiratory Respiratory: No respiratory distress, Clear bilaterally - Abdomen Abdomen: Non tender, Non distended - Back Back: No CVA TTP - Derm Derm: Normal color - Neuro Neuro: Alert and oriented X 3, executive account manager 2-12 intact, No motor deficit, No sensory deficit, Normal speech, Other (cerebellar testing normal) Results - Vitals Vitals: Vital Signs - 24 hr 02/25/21 01:24 Temperature 36.6 C Heart Rate 69 Respiratory 18 Rate Blood Pressure 188/92 H O2 Saturation 97 Oxygen O2 Source Room air - EKG (time done) 0120 Rate: Rate (enter#) (73) Rhythm: NSR [place]: Normal Intervals: Normal [place] QRS: Normal Ischemia: Normal ST segments - Labs Labs: Laboratory Tests 02/25/21 02/25/21 02/25/21 01:33 01:33 01:33 WBC 7.3 RBC 4.53 Hgb 13.4 Hct 42.0 MCV 92.7 MCH 29.6 MCHC 31.9 L RDW 13.4 Plt Count 321 MPV 9.5 Neut # (Auto) 3.6 Lymph # (Auto) 2.6 Lamb # (Auto) 0.9 Eos # (Auto) 0.2 Baso # (Auto) 0.0 Absolute Nucleated RBC 0.00 Nucleated RBC % 0.0 Sodium 137 Potassium 3.9 Chloride 100 L Carbon Dioxide 27 Anion Gap 10.0 BUN 24 H Creatinine 0.8 Estimated GFR (MDRD) 70 L Glucose 106 H Calcium 9.6 Total Bilirubin 0.4 AST 17 ALT 14 Alkaline Phosphatase 57 Troponin I High Sens 7.7 Total Protein 7.1 Albumin 4.2 Globulin 2.9 Albumin/Globulin Ratio 1.4 Lipase 33 Urine Color Urine Clarity Urine pH Ur Specific [place] Urine Protein Urine Glucose (UA) Urine Ketones Urine Occult Blood Urine Nitrite Urine Bilirubin Urine Urobilinogen Ur Leukocyte Esterase Ur Microscopic Review Urine Culture Comments 02/25/21 02:40 WBC RBC Hgb Hct MCV MCH MCHC RDW Plt Count MPV Neut # (Auto) Lymph # (Auto) Lamb # (Auto) Eos # (Auto) Baso # (Auto) Absolute Nucleated RBC Nucleated RBC % Sodium Potassium Chloride Carbon Dioxide Anion Gap BUN Creatinine Estimated GFR (MDRD) Glucose Calcium Total Bilirubin AST ALT Alkaline Phosphatase Troponin I High Sens Total Protein Albumin Globulin Albumin/Globulin Ratio Lipase Urine Color YELLOW Urine Clarity CLEAR Urine pH 7.0 Ur Specific [place] 1.010 Urine Protein NEGATIVE Urine Glucose (UA) NEGATIVE Urine Ketones NEGATIVE Urine Occult Blood NEGATIVE Urine Nitrite NEGATIVE Urine Bilirubin NEGATIVE Urine Urobilinogen 0.2 (NORMAL) Ur Leukocyte Esterase NEGATIVE Ur Microscopic Review NOT INDICATED Urine Culture Comments NOT INDICATED PD MEDICAL DECISION MAKING - ED course ED course: 75yF presents with "worst headache" of life, waking from sleep along with hypertension, with one home BP read 201/101 and another 170/84. patient states she has had BP reads "all over the place" and this is extremely concerning to her. It has been about a year since she saw her pcp Dr. Hernandez and she is not on BP meds. will obtain ct, labwork. ekg noncontributory. patient declining analgesia. Note that headache resolved while in the emergency department. patient states she feels much better. workup unremarkable. return precautions given. patient will f/u with pmd. Departure - Departure Disposition: 01 Home, Self Care Clinical Impression: Headache, Hypertension, Dizziness Condition: Good Instructions: Hypertension Control Comments: You were seen in the emergency department for high blood pressure and headache. Your headache improved while in the hospital and your labwork, ekg, and ct of the head did not show any emergent cause. Please call tomorrow to make a follow up appointment with Dr. Hernandez. Return to the emergency department if you have any new or worsening symptoms or other concerns.
[2021-02-25 02:02] LABS: BASOPHILS % (AUTO) 0.5 %; EOSINOPHILS # (AUTO) 0.2 10^3/uL (0.0-0.7); EOSINOPHILS % (AUTO) 2.1 %; HGB - HEMOGLOBIN 13.4 g/dL (12.0-16.0); LYMPHOCYTES # (AUTO) 2.6 10^3/uL (1.5-3.5); LYMPHOCYTES % (AUTO) 35.6 %; MEAN CORPUSCULAR HEMOGLOBIN 29.6 pg (27.0-31.0); MEAN CORPUSCULAR HGB CONC 31.9 g/dL (32.0-36.0); MEAN CORPUSCULAR VOLUME 92.7 fL (81.0-99.0); MEAN PLATELET VOLUME 9.5 fL (7.9-10.8); MONOCYTES # (AUTO) 0.9 10^3/uL (0.0-1.0); MONOCYTES % (AUTO) 12.7 %; NEUTROPHILS # (AUTO) 3.6 10^3/uL (1.5-6.6); NEUTROPHILS % (AUTO) 48.8 %; PLT - PLATELET COUNT 321 10^3/uL (130-450); RED BLOOD COUNT 4.53 10^6/uL (4.20-5.40); RED CELL DISTRIBUTION WIDTH 13.4 % (12.0-15.0); WHITE BLOOD COUNT 7.3 x10^3/uL (4.8-10.8)
[2021-02-25] MEDS ORDERED: SODIUM CHLORIDE 0.9% 500 ML IV STA (02:02)
[2021-02-25] MEDS ORDERED: IOVERSOL 320 100 ML VIAL IVP ONE ×2 (02:05→02:44)
[2021-02-25 02:10] LABS: ALBUMIN 4.2 g/dL (3.2-5.5); ALBUMIN/GLOBULIN RATIO 1.4 (1.0-2.2); BILIRUBIN,TOTAL 0.4 mg/dL (0.2-1.0); CALCIUM 9.6 mg/dL (8.5-10.3); CREATININE 0.8 mg/dL (0.4-1.0); POTASSIUM 3.9 mmol/L (3.5-5.0); TOTAL PROTEIN 7.1 g/dL (6.7-8.2)
[2021-02-25 02:49] LABS: BILIRUBIN,URINE NEGATIVE (NEGATIVE); GLUCOSE, URINE (UA) NEGATIVE (NEGATIVE); KETONES,URINE (UA) NEGATIVE (NEGATIVE); LEUKOCYTE ESTERASE, URINE NEGATIVE (NEGATIVE); NITRITE,URINE NEGATIVE (NEGATIVE); OCCULT BLOOD,URINE NEGATIVE (NEGATIVE); PROTEIN,URINE NEGATIVE (NEGATIVE); UROBILINOGEN,URINE 0.2 (NORMAL) E.U./dL (NORMAL)
[2021-02-25 02:54] LABS: CLARITY,URINE CLEAR (CLEAR)
[2021-02-25 03:20] VITALS: BP 178/77
--- NOTE | 2021-02-25 07:13 | CT Report ---
PROCEDURE: ANGIO HEAD W/WO INDICATIONS: worst headache of life, waking from sleep. hx SDH CONTRAST: IV CONTRAST: Optiray 320 ml: 80 PO CONTRAST: *NO PO CONTRAST TECHNIQUE: Precontrast 4.5 mm thick angled axial sections acquired from the foramen magnum to the vertex. Afte r the administration of intravenous contrast, 1 mm thick sections acquired through the [place] of [place] is. Postcontrast 4.5 mm thick sections then re-acquired from the foramen magnum to the vertex. 3-di mensional yefgnio-spwapcyth-iaqneigtkd (MIP) and/or volume rendering reformats were acquired of the c entral intracranial vasculature. For radiation dose reduction, the following was used: automated ex posure control, adjustment of mA and/or kV according to patient size. COMPARISON: None FINDINGS: Image quality: Excellent. Anterior circulation: Intracranial internal carotid arteries are normal in flow. Atherosclerotic ca lcifications noted in the cavernous and clinoid segments of the internal carotid arteries bilaterally which causes mild narrowing of the vessels. The flow within the paired anterior cerebral arteries is normal and symmetric. The flow within the middle cerebral arteries is normal and symmetric. The an terior communicating artery is seen. No aneurysms are seen. Posterior circulation: Visualized portions of the vertebral arteries demonstrate normal caliber, and join to form a normal appearing basilar artery. Flow within the posterior cerebral arteries is norm al and symmetric. No aneurysms are seen. Dural sinuses demonstrate normal postcontrast enhancement. CSF spaces: Ventricles are normal in size and shape. Basal cisterns are patent. No extra-axial flu id collections. Brain: No midline shift. No intracranial bleeds or masses. Left frontal parafalcine partially calci fied extra-axial mass is noted which could represent small meningioma versus prominent dural ossifica tion center. [place]-white matter interface appears intact. Skull and face: Calvarium and facial bones appear intact, without suspicious lesions. Sinuses: Mucosal thickening noted in the right maxillary sinus. Mastoids are clear. IMPRESSION: 1. No acute intracranial disease process. 2. No large vessel occlusion, hemodynamically significant vascular stenosis, vascular dissection or a neurysm. 3. Mild right maxillary sinus mucosal thickening. Reviewed by: Rin Cervantes MD, PhD on 02/25/2021 7:12 AM PDT Approved by: Rin Cervantes MD, PhD on 02/25/2021 7:12 AM PDT Station ID: [id number]
== END 2021-02-25 03:20 | disposition home or self-care (01) ==
LOC: ED 01:22
DX: R51.9 Headache, unspecified (principal); I10 Essential (primary) hypertension; R42 Dizziness and giddiness
CPT/HCPCS: 36415; 70496; 80053; 81003; 83690; 84484; 85025; 93005; 96360; 99284; Q9967; 81001; 87086

== ENCOUNTER 2021-06-09 08:00 | Outpatient (CLI) | payer MEDICARE, OTHER | END 2021-06-09 23:59 | LOC: LAB.R 08:00 | PROVIDERS: ATTEND Internal Medicine | DX: Z20.822 Contact with and (suspected) exposure to COVID-19 (principal) ==

== ENCOUNTER 2021-09-24 08:00 | Outpatient (CLI) | payer MEDICARE, OTHER ==
[2021-09-24 08:15] LABS: BASOPHILS % (AUTO) 0.4 %; EOSINOPHILS # (AUTO) 0.1 10^3/uL (0.0-0.7); EOSINOPHILS % (AUTO) 1.3 %; HCT - HEMATOCRIT 44.8 % (37.0-47.0); HGB - HEMOGLOBIN 14.8 g/dL (12.0-16.0); LYMPHOCYTES # (AUTO) 1.5 10^3/uL (1.5-3.5); LYMPHOCYTES % (AUTO) 22.2 %; MEAN CORPUSCULAR HEMOGLOBIN 29.8 pg (27.0-31.0); MEAN CORPUSCULAR VOLUME 90.1 fL (81.0-99.0); MEAN PLATELET VOLUME 8.7 fL (7.9-10.8); MONOCYTES # (AUTO) 0.9 10^3/uL (0.0-1.0); MONOCYTES % (AUTO) 12.8 %; NEUTROPHILS # (AUTO) 4.3 10^3/uL (1.5-6.6); NEUTROPHILS % (AUTO) 62.9 %; PLT - PLATELET COUNT 316 10^3/uL (130-450); RED BLOOD COUNT 4.97 10^6/uL (4.20-5.40); RED CELL DISTRIBUTION WIDTH 13.3 % (12.0-15.0); WHITE BLOOD COUNT 6.9 x10^3/uL (4.8-10.8)
[2021-09-24 08:32] LABS: ALBUMIN 4.5 g/dL (3.2-5.5); ALBUMIN/GLOBULIN RATIO 1.6 (1.0-2.2); ALKALINE PHOSPHATASE 67 IU/L (42-121); ALT ALANINE AMINOTRANSFERASE 18 IU/L (10-60); AST ASPARTATE AMINOTRANSFERASE 22 IU/L (10-42); BILIRUBIN,TOTAL 0.8 mg/dL (0.2-1.0); BUN - BLOOD UREA NITROGEN 25 mg/dL (6-20); CALCIUM 9.6 mg/dL (8.5-10.3); CARBON DIOXIDE - CO2 24 mmol/L (21-32); CHLORIDE 102 mmol/L (101-111); CHOL/HDL RATIO 2.7 (<4.4); CHOLESTEROL 200 mg/dL; CREATININE 0.9 mg/dL (0.4-1.0); GFR - MDRD 61 (>89); GLUCOSE 110 mg/dL (70-100); HDL CHOLESTEROL 74 mg/dL; LDL CHOLESTEROL,CALCULATED 114 mg/dL; LDL/HDL RATIO 1.5 (<4.4); POTASSIUM 4.2 mmol/L (3.5-5.0); SODIUM 137 mmol/L (135-145); TOTAL PROTEIN 7.4 g/dL (6.7-8.2); TRIGLYCERIDES 58 mg/dL; VLDL CHOLESTEROL 12 mg/dL
[2021-09-24 08:43] LABS: THYROID STIMULATING HORMONE 2.2 uIU/mL (0.34-5.60)
== END 2021-09-24 08:01 | disposition home or self-care (01) ==
LOC: LAB 08:00
PROVIDERS: ATTEND Nurse Practitioner
DX: I10 Essential (primary) hypertension (principal); Z13.220 Encounter for screening for lipoid disorders; G40.909 Epilepsy, unspecified, not intractable, without status epilepticus; F32.A Depression, unspecified
CPT/HCPCS: 36415; 80053; 80061; 83721; 84443; 85025

== ENCOUNTER 2021-10-11 11:30 | Outpatient (CLI) | payer MEDICARE, OTHER ==
--- NOTE | 2021-10-11 17:20 | XRAY Report ---
PROCEDURE: Knee 3 View RT INDICATIONS: PAIN IN RT KNEE TECHNIQUE: 3 views of the right knee(s) were acquired. COMPARISON: None. FINDINGS: Bones: No acute fractures or dislocations. No suspicious bony lesions. Moderate-severe tricompartm ental degenerative changes of the right knee with significant joint space loss involving the lateral femorotibial compartment. Moderate degenerative changes of the patellofemoral compartment. Marginal o steophytes are seen. Small enthesophyte involving the superior pole the patella at the insertion site of the distal quadriceps tendon. Soft tissues: There is a small joint effusion. No suspicious soft tissue calcifications. IMPRESSION: Right knee without acute fracture or dislocation. Moderate-severe tricompartmental osteoarthrosis of the right knee with small joint effusion. Reviewed by: Gino Brewer MD on 10/11/2021 5:19 PM PDT Approved by: Gino Brewer MD on 10/11/2021 5:19 PM PDT Station ID: [id number]
== END 2021-10-11 11:31 | disposition home or self-care (01) ==
LOC: DI 11:30
PROVIDERS: ATTEND Nurse Practitioner
DX: M17.11 Unilateral primary osteoarthritis, right knee (principal); M25.461 Effusion, right knee

== ENCOUNTER 2021-10-28 16:16 | Emergency (ER) | payer MEDICARE, OTHER ==
--- NOTE | 2021-10-28 17:24 | ED Physician Documentation ---
History of Present Illness - Stated complaint Stated Complaint: C+/VOMITING - Chief complaint Chief Complaint: General - History obtained from History obtained from: Patient - History of Present Illness Timing: Today Pain level max: 0 Pain level now: 0 - Additonal information Additional information: 76-year-old female states that she has been feeling nauseated for the past 2 days. Took a COVID test today and it was positive. She called her doctor who told her to come to the emergency department. No fevers. No chills. No abdominal pain. No diarrhea. She has a history of hypertension, recently was started on a new blood pressure medication but this caused hives, so she has stopped this. She did feel lightheaded when she stood up with EMS. EMS gave her Zofran but no IV fluids. Mild cough. No difficulty breathing. No headache. Review of Systems Ten Systems: 10 systems reviewed and negative Constitutional: denies: Fever, Chills Respiratory: reports: Cough GI: reports: Nausea, Vomiting. 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: Hysterectomy HEENT: Cataracts, Tonsil/Adenoidectomy - Present Medications Home Medications: Ambulatory Orders Medication Instructions Recorded Confirmed Pantoprazole Sodium [Protonix] 40 mg PO DAILY 10/02/12 03/08/18 lamoTRIgine [LaMICtal] 100 mg PO Q4HR 10/02/12 03/08/18 Polymyxin B/Trimeth Ophth Drop 1 drops RIGHTEYE Q3H 7 Days #1 09/20/18 [Polytrim Ophth Drops] bottle HYDROcod/ACET 5/325 Prepack 4 1 bottle PO ONCE #1 bottle 10/28/18 [NORCO 5/325 Prepack 4] Hydrocodone/Acetaminophen 1 - 2 each PO Q6H PRN #10 tablet 10/28/18 [Hydrocodon-Acetaminophen 5-325] oxyCODONE/ACET 5/325 Prepack 4 1 bottle PO ONCE #1 bottle 10/28/18 [PERCOCET 5 MG/325 MG Prepack 4] Cetirizine HCl/Pseudoephedrine 1 each PO BID PRN #30 tab.er.12h 05/20/19 [Zyrtec-D Tablet] Fluticasone [Flonase] 1 sprays RYAN BID PRN #1 bottle 05/20/19 Ondansetron Odt [Zofran] 4 mg TL Q6H PRN #10 tablet 10/28/21 - Allergies Allergies/Adverse Reactions: Allergies Allergy/AdvReac Type Severity Reaction Status Date / Time esomeprazole Allergy Mild unknown Verified 02/25/21 01:29 diazepam Allergy Unknown Hallucinati Verified 02/25/21 01:29 ons Penicillins Allergy Unknown Hallucinati Verified 02/25/21 01:29 ons blue dye Allergy Unknown Verified 02/25/21 01:29 azithromycin AdvReac tremors Verified 02/25/21 01:29 - Social History Does the pt smoke?: No Smoking Status: Never smoker Does the pt drink ETOH?: No Does the pt have substance abuse?: No - Immunizations Immunizations are current?: Yes Immunizations: TDAP current <10years - POLST Patient has POLST: No POLST Status: Full Code PD ED PE NORMAL - Vitals Vital signs reviewed: Yes - General General: Alert and oriented X 3, No acute distress, Well developed/nourished - HEENT HEENT: PERRL, Moist mucous membranes - Neck Neck: Supple, no meningeal sign - Cardiac Cardiac: RRR, Strong equal pulses - Respiratory Respiratory: No respiratory distress, Clear bilaterally - Abdomen Abdomen: Soft, Non tender, Non distended - Derm Derm: Warm and dry - Extremities Extremities: No edema, No calf tenderness / cord - Neuro Neuro: Alert and oriented X 3 - Psych Psych: Normal mood, Normal affect Results - Vitals Vitals: Vital Signs - 24 hr 10/28/21 10/28/21 10/28/21 16:57 19:07 20:08 Temperature 37.1 C 36.8 C Heart Rate 58 L 81 68 Respiratory 16 16 16 Rate Blood Pressure 194/106 H 185/77 H 165/98 H O2 Saturation 97 99 95 Oxygen O2 Source Room air - Labs Labs: Laboratory Tests 10/28/21 10/28/21 17:27 17:27 WBC 8.2 RBC 4.84 Hgb 14.2 Hct 43.3 MCV 89.5 MCH 29.3 MCHC 32.8 RDW 13.2 Plt Count 290 MPV 8.7 Neut # (Auto) 6.5 Lymph # (Auto) 1.1 L [place] # (Auto) 0.6 Eos # (Auto) 0.0 Baso # (Auto) 0.0 Absolute Nucleated RBC 0.00 Nucleated RBC % 0.0 Sodium 135 Potassium 4.2 Chloride 98 L Carbon Dioxide 27 Anion Gap 10.0 BUN 19 Creatinine 0.7 Estimated GFR (MDRD) 81 L Glucose 131 H Calcium 9.7 Total Bilirubin 0.5 AST 17 ALT 16 Alkaline Phosphatase 61 Total Protein 7.2 Albumin 4.2 Globulin 3.0 Albumin/Globulin Ratio 1.4 Lipase 28 PD MEDICAL DECISION MAKING - ED course Complexity details: reviewed results, re-evaluated patient, considered differential, d/w patient ED course: Patient is very well-appearing, nontoxic. Afebrile. Vomiting resolved with antiemetics in the emergency department. Tolerating p.o. without difficulty. We did discuss Paxlovid for her COVID, but it would interact with her Lamictal and she does not want to have a potential seizure. Therefore the patient declines Paxlovid at this time. We will continue supportive care at home and have her follow-up with her PCP for further care. Patient counseled regarding signs and symptoms for which I believe and urgent re-evaluation would be necessary. Patient with good understanding of and agreement to plan and is comfortable going home at this time This document was made in part using voice recognition software. While efforts are made to proofread this document, sound alike and grammatical errors may occur. Departure - Departure Disposition: 01 Home, Self Care Clinical Impression: COVID-19 Condition: Good Instructions: ED Viral Syndrome Follow-Up: Jasmina Sanchez ARNP [Primary Care Provider] - Prescriptions: Ondansetron Odt [Zofran] 4 mg TL Q6H PRN #10 tablet PRN Reason: Nausea / Vomiting Comments: As we discussed, you would not be a candidate for Paxlovid, the COVID antiviral medication, because of your Lamictal. It can interfere with your Lamictal and cause you to have seizures. Please drink plenty of fluids and rest. Return if you worsen. Follow-up with your doctor for further care. Your prescriptions were sent to [facility] in [place]. Discharge Date/Time: 10/28/21 20:52
[2021-10-28 17:31] LABS: BASOPHILS % (AUTO) 0.2 %; EOSINOPHILS % (AUTO) 0.1 %; HCT - HEMATOCRIT 43.3 % (37.0-47.0); HGB - HEMOGLOBIN 14.2 g/dL (12.0-16.0); LYMPHOCYTES # (AUTO) 1.1 10^3/uL (1.5-3.5); LYMPHOCYTES % (AUTO) 13.2 %; MEAN CORPUSCULAR HEMOGLOBIN 29.3 pg (27.0-31.0); MEAN CORPUSCULAR HGB CONC 32.8 g/dL (32.0-36.0); MEAN CORPUSCULAR VOLUME 89.5 fL (81.0-99.0); MEAN PLATELET VOLUME 8.7 fL (7.9-10.8); MONOCYTES # (AUTO) 0.6 10^3/uL (0.0-1.0); MONOCYTES % (AUTO) 6.8 %; NEUTROPHILS # (AUTO) 6.5 10^3/uL (1.5-6.6); NEUTROPHILS % (AUTO) 79.5 %; PLT - PLATELET COUNT 290 10^3/uL (130-450); RED BLOOD COUNT 4.84 10^6/uL (4.20-5.40); RED CELL DISTRIBUTION WIDTH 13.2 % (12.0-15.0); WHITE BLOOD COUNT 8.2 x10^3/uL (4.8-10.8)
[2021-10-28] MEDS: SODIUM CHLORIDE 0.9% 1,000 ML IV STA (17:39)
[2021-10-28 17:45] LABS: ALBUMIN 4.2 g/dL (3.2-5.5); ALBUMIN/GLOBULIN RATIO 1.4 (1.0-2.2); BILIRUBIN,TOTAL 0.5 mg/dL (0.2-1.0); CALCIUM 9.7 mg/dL (8.5-10.3); CREATININE 0.7 mg/dL (0.4-1.0); POTASSIUM 4.2 mmol/L (3.5-5.0); TOTAL PROTEIN 7.2 g/dL (6.7-8.2)
[2021-10-28] MEDS: PROMETHAZINE INJ 25 MG in SODIUM CHLORIDE 0.9% 50 ML IV STA (18:51)
[2021-10-28 20:09] VITALS: BP 165/98
== END 2021-10-28 20:52 | disposition home or self-care (01) ==
LOC: EDUNIT# → ED 16:16
DX: U07.1 COVID-19 (principal)
CPT/HCPCS: 36415; 80053; 83690; 85025; 96365; 99283; J7040

== ENCOUNTER 2021-11-18 11:14 | Outpatient (CLI) | payer MEDICARE, OTHER ==
--- NOTE | 2021-11-19 08:23 | Mammography Report ---
BILATERAL DIGITAL SCREENING MAMMOGRAM 3D/2D: 11/18/2021 CLINICAL: Routine screening. Comparison is made to exams dated: 04/22/2020 mammogram, 06/06/2018 mammogram, and 05/25/2017 mammogra m - [facility]. There are scattered fibroglandular elements in both breasts. No significant masses, calcifications, or other findings are seen in either breast. There has been no significant interval change. IMPRESSION: NEGATIVE There is no mammographic evidence of malignancy. A 1 year screening mammogram is recommended. This exam was interpreted at Station ID: [id number]. NOTE: For mammograms, a report in lay terms will be sent to the patient. Approximately 15% of breast malignancies will not be visualized mammographically. In the management of a palpable breast mass, a negative mammogram must not discourage biopsy of a clinically suspicious lesion. Electronically Signed By: Cesar Iniguez M.D. ar/penrad:11/18/2021 15:15:49 ACR BI-RADS Category 1: Negative 3341F PARENCHYMAL PATTERN: (A) - The breast(s) demonstrate(s) scattered fibroglandular densities. BI-RADS CATEGORY: (1) - 1 RECOMMENDATION: (ANNUAL) - Recommend routine annual screening mammography. [id number] 1 year screening LATERALITY: (B)
== END 2021-11-18 11:15 | disposition home or self-care (01) ==
LOC: DI.N 11:14
PROVIDERS: ATTEND Nurse Practitioner
DX: Z12.31 Encounter for screening mammogram for malignant neoplasm of breast (principal)

== ENCOUNTER 2022-01-31 12:44 | Emergency (ER) | payer MEDICARE, OTHER ==
[2022-01-31] MEDS ORDERED: predniSONE 20 MG TABLET PO STA (12:57)
[2022-01-31] MEDS ORDERED: diphenhydrAMINE 25 MG CAPSULE PO STA (12:58)
--- NOTE | 2022-01-31 13:02 | ED Physician Documentation ---
PD HPI HEENT - Stated complaint Stated Complaint: TONGUE SWELLING - Chief complaint Chief Complaint: Allergic Rx - History obtained from History obtained from: Patient - History of Present Illness Timing - onset: Today, Last night Timing - duration: Hours Timing - details: Gradual onset (noted feeling of mild tongue swelling last night after PO abx med. Improved some and then worse this morning after dose med again. Some blotchy red itchy areas on forearms.), Still present Worsens: Swalllowing Associated symptoms: Facial swelling. No: Fever, Congestion, Headache, Cough Similar symptoms before: Has not had sx before Recently seen: Clinic (seen dental office and Rx with antibiotics to take for dental procedure scheduled tomorrow.) Review of Systems Constitutional: denies: Fever, Chills Nose: denies: Rhinorrhea / runny nose, Congestion Throat: reports: Dental pain / toothache. denies: Sore throat Cardiac: denies: Chest pain / pressure Respiratory: reports: Dyspnea. 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 HEENT: Cataracts, Tonsil/Adenoidectomy - Present Medications Home Medications: Ambulatory Orders Medication Instructions Recorded Confirmed Pantoprazole Sodium [Protonix] 40 mg PO DAILY 10/02/12 01/31/22 lamoTRIgine [LaMICtal] 100 mg PO Q4HR 10/02/12 01/31/22 Fluticasone [Flonase] 1 sprays RYAN BID PRN #1 bottle 05/20/19 Amlodipine Besylate [Norvasc] 10 mg PO DAILY 01/31/22 01/31/22 Cetirizine [ZyrTEC] 10 mg PO BID #10 tablet 01/31/22 dexAMETHasone [Decadron] 4 mg PO DAILY #5 tablet 01/31/22 - Allergies Allergies/Adverse Reactions: Allergies Allergy/AdvReac Type Severity Reaction Status Date / Time esomeprazole Allergy Mild unknown Verified 01/31/22 12:57 diazepam Allergy Unknown Hallucinati Verified 01/31/22 12:57 ons Penicillins Allergy Unknown Hallucinati Verified 01/31/22 12:57 ons blue dye Allergy Unknown Verified 01/31/22 12:57 azithromycin AdvReac tremors Verified 01/31/22 12:57 - Social History Does the pt smoke?: No Smoking Status: Never smoker Does the pt drink ETOH?: No Does the pt have substance abuse?: No - Immunizations Immunizations are current?: Yes Immunizations: TDAP current <10years - POLST Patient has POLST: No POLST Status: Full Code PD ED PE NORMAL - Vitals Vital signs reviewed: Yes - General General: Alert and oriented X 3, No acute distress, Well developed/nourished - HEENT HEENT: PERRL, EOMI, Pharynx benign (minimal appearance of swelling left upper lip and tip of tongue, also minimal uvular swelling. Normal voice and breathing. ) - Neck Neck: Supple, no meningeal sign, No adenopathy - Cardiac Cardiac: RRR, No murmur - Respiratory Respiratory: Clear bilaterally - Derm Derm: Normal color, Warm and dry - Extremities Extremities: Other (both forearms with faint blotchy redness without edema nor blistering. ) - Neuro Neuro: Alert and oriented X 3, No motor deficit, Normal speech Results - Vitals Vitals: Oxygen O2 Source Room air PD MEDICAL DECISION MAKING - ED course Complexity details: considered differential (seems allergic reaction to Keflex antibiotic. ), d/w patient Departure - Departure Disposition: 01 Home, Self Care Clinical Impression: Allergic reaction due to antibacterial drug Condition: Stable Record reviewed to determine appropriate education?: Yes Instructions: ED Drug React Allergic Follow-Up: Jasmina Sanchez ARNP [Primary Care Provider] - Prescriptions: dexAMETHasone [Decadron] 4 mg PO DAILY #5 tablet Cetirizine [ZyrTEC] 10 mg PO BID #10 tablet Comments: Stop the cephalexin as that is the obvious likely cause for your allergic reaction. At this point I would not start another antibiotic as it would just potentially confuse the issue if you continue with some mild allergic symptoms from the current antibiotic, it would be hard to distinguish from that versus reaction to the new one. Since the antibiotics are just prophylactic for your dental procedure tomorrow, it seems reasonable to just not take any at this point. Follow-up with your dentist tomorrow. This reaction should not preclude getting your dental procedure. Continue with some Benadryl every 6-8 hours if needed for itchiness or swelling through the day today. If you have some continued mild symptoms into tomorrow, you may want to continue long-acting antihistamine of cetirizine twice daily for 5 days and decadron steroid daily for 5 more days. However the dose given today may be adequate to reduce the reaction and not need further medicines beyond today. I did send prescriptions to [facility] pharmacy should you need continued dosing. Return to the ER if worsening symptoms significantly. Discharge Date/Time: 01/31/22 14:04
[2022-01-31] MEDS ORDERED: CETIRIZINE 10 MG TABLET PO STA (13:18)
[2022-01-31 14:05] VITALS: BP 150/60
== END 2022-01-31 14:04 | disposition home or self-care (01) ==
LOC: ED 12:44
DX: R22.0 Localized swelling, mass and lump, head (principal); T36.95XA Adverse effect of unspecified systemic antibiotic, initial encounter
CPT/HCPCS: 99282; A9270; J7512

== ENCOUNTER 2022-05-13 09:51 | Outpatient (CLI) | payer MEDICARE, OTHER ==
--- NOTE | 2022-05-13 15:15 | DEXA Report ---
PROCEDURE: Dexa Spine and/or Hip INDICATIONS: POSTMENOPAUSAL TECHNIQUE: Dual energy x-ray absorptiometry (DXA) was performed on a [employer] System. Regions measur ed are the AP Spine, femoral neck, and if needed forearm. COMPARISON: 04/22/2020. FINDINGS: Lumbar Spine: Bone Mineral Density 1.256 g/cm/cm,T score 0.6. There is interval 9.1% increase in total lumbar spine bone mineral density. Left Femoral Neck: Bone Mineral Density 0.767 g/cm/cm, T score -2.0. Left Hip: Bone Mineral Density 0.920 g/cm/cm,T score -0.7. There is interval 2.2% decrease in left hip bone mi neral density. (T score greater or equal to -1.0: NORMAL) (T score from -1.1 to -2.4: OSTEOPENIA) (T score less than or equal to -2.5 to: OSTEOPOROSIS) Impression: Osteopenia. Patients with diagnosis of osteoporosis or osteopenia should have regular bone mineral density assess ment. For those eligible for Medicare, routine testing is allowed once every 2 years. Testing frequ ency can be increased for patients who have rapidly progressing disease or for those who are receivin g medical therapy to restore bone mass. Reviewed by: Zeus Rosenberg MD on 05/13/2022 3:13 PM PST Approved by: Zeus Rosenberg MD on 05/13/2022 3:13 PM PST Station ID: [id number]
== END 2022-05-13 09:52 | disposition home or self-care (01) ==
LOC: DI 09:51
PROVIDERS: ATTEND Nurse Practitioner
DX: M85.88 Other specified disorders of bone density and structure, other site (principal); Z78.0 Asymptomatic menopausal state

== ENCOUNTER 2022-07-29 13:53 | Outpatient (CLI) | payer MEDICARE, OTHER ==
--- NOTE | 2022-07-29 17:04 | XRAY Report ---
PROCEDURE: Lumbar Spine 2 View INDICATIONS: RT HIP PX TECHNIQUE: 2 views of the lumbar spine were acquired. COMPARISON: None. FINDINGS: Bones: 5 [id number] vertebrae are present. Decrease bone mineralization. Rightward curvature of the lumbar spine. Grade 1 anterolisthesis of L4 on L5, likely due to facet arthrosis. Multilevel dis c vertebral body height loss at L2, L1, T12, T11. Moderate to severe, multilevel disc height loss, mo st prominent at L4-5, L1-2. Facet arthrosis L3-S1. Soft tissues: Overlying bowel gas pattern is normal. No suspicious soft tissue calcifications. IMPRESSION: Multilevel vertebral body height loss, suspected osteoporosis. Moderate to severe multilevel degenerative disc disease and facet arthrosis. Grade 1 anterolisthesis of L4 on L5, likely due to facet arthrosis. Reviewed by: Des Anne on 07/29/2022 5:02 PM PST Approved by: Des Anne on 07/29/2022 5:02 PM PST Station ID: [id number]
--- NOTE | 2022-07-29 17:04 | XRAY Report ---
PROCEDURE: Hips 3-4V BILAT INDICATIONS: CHRONIC RIGHT PAIN TECHNIQUE: 2 views of the hips were acquired. COMPARISON: None FINDINGS: Bones: No fractures or dislocations. No suspicious bony lesions. The visualized pelvic ring appear s intact. Mild nonuniform joint space narrowing and osteophytic lipping of the acetabulum. Soft tissues: No suspicious soft tissue calcifications or masses. IMPRESSION: Mild bilateral hip osteoarthritis. Reviewed by: Des Anne on 07/29/2022 5:03 PM PST Approved by: Des Anne on 07/29/2022 5:03 PM PST Station ID: [id number]
== END 2022-07-29 13:54 | disposition home or self-care (01) ==
LOC: DI 13:53
PROVIDERS: ATTEND Physician Assistant Medical
DX: M16.0 Bilateral primary osteoarthritis of hip (principal); M51.14 Intervertebral disc disorders with radiculopathy, thoracic region; M51.16 Intervertebral disc disorders with radiculopathy, lumbar region; M47.27 Other spondylosis with radiculopathy, lumbosacral region; M43.16 Spondylolisthesis, lumbar region

== ENCOUNTER 2022-07-30 23:47 | Outpatient (CLI) | payer MEDICARE, OTHER | END 2022-07-30 23:48 | disposition critical access hospital (66) | LOC: EMS 23:47 | DX: M25.551 Pain in right hip (principal); R10.31 Right lower quadrant pain | CPT/HCPCS: A0425; A0429 ==

== ENCOUNTER 2023-02-19 02:09 | Emergency (ER) | payer MEDICARE, OTHER ==
[2023-02-19] MEDS ORDERED: LIDOCAINE PATCH 5% TOP STA (02:31)
--- NOTE | 2023-02-19 03:01 | ED Physician Documentation ---
PD HPI HEAD INJURY - Stated complaint Stated Complaint: FALL - Chief complaint Chief Complaint: Trauma Hd/Nk - History obtained from History obtained from: Patient - Additional information Additional information: Patient is a 77-year-old female presenting for evaluation after a trip and fall at home. Patient states that she was walking back to her bed from using the bathroom when she tripped over a rug hitting her face. She has an abrasion to her nose. She reports having a headache and neck pain. She does not take a blood thinner. She denies LOC. She denies precipitating symptoms prior to the fall. She drove herself to the emergency department. She denies prior neck injuries. Review of Systems Constitutional: denies: Fever Cardiac: denies: Chest pain / pressure Respiratory: denies: Dyspnea GI: denies: Abdominal Pain Skin: reports: Abrasion (s) Neurologic: reports: Head injury. 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: Hysterectomy HEENT: Cataracts, Tonsil/Adenoidectomy - Present Medications Home Medications: Ambulatory Orders Medication Instructions Recorded Confirmed Pantoprazole Sodium [Protonix] 40 mg PO DAILY 10/02/12 02/19/23 lamoTRIgine [LaMICtal] 100 mg PO QID 10/02/12 02/19/23 Amlodipine Besylate [Norvasc] 10 mg PO DAILY 01/31/22 02/19/23 Acetaminophen [Acetaminophen Extra 500 mg PO QID PRN #50 tablet 07/31/22 02/19/23 Strength] hydroCHLOROthiazide 50 mg PO DAILY 07/31/22 02/19/23 [Hydrochlorothiazide] tiZANidine [Zanaflex] 4 mg PO Q8H PRN #20 tablet 07/31/22 02/19/23 - Allergies Allergies/Adverse Reactions: Allergies Allergy/AdvReac Type Severity Reaction Status Date / Time esomeprazole Allergy Mild unknown Verified 02/19/23 02:24 diazepam Allergy Unknown Hallucinati Verified 02/19/23 02:24 ons Penicillins Allergy Unknown Hallucinati Verified 02/19/23 02:24 ons blue dye Allergy Unknown Verified 02/19/23 02:24 azithromycin AdvReac tremors Verified 02/19/23 02:24 - Social History Does the pt smoke?: No Smoking Status: Never smoker Does the pt drink ETOH?: No Does the pt have substance abuse?: No - Immunizations Immunizations are current?: Yes Immunizations: TDAP current <10years - POLST Patient has POLST: No POLST Status: Full Code PD ED PE NORMAL - General General: Alert and oriented X 3, No acute distress, Well developed/nourished - HEENT HEENT: PERRL, EOMI, Ears normal, Moist mucous membranes, Pharynx benign, Other (Very superficial abrasion to nose, no bony tenderness to facial bones) - Neck Neck: No: No bony TTP, C-Spine cleared by NEXUS criteria (Mild midline C-spine tenderness, placed into a c-collar) - Cardiac Cardiac: RRR, Strong equal pulses - Respiratory Respiratory: No respiratory distress, Clear bilaterally - Abdomen Abdomen: Soft, Non tender, Non distended - Back Back: No spinal TTP - Derm Derm: Warm and dry - Extremities Extremities: No deformity, Normal ROM s pain - Neuro Neuro: Alert and oriented X 3, housing management officer 2-12 intact, No motor deficit, No sensory deficit, Normal speech Eye Opening: Spontaneous Motor: Obeys Commands Verbal: Oriented GCS Score: 15 Results - Vitals Vitals: Vital Signs - 24 hr 02/19/23 02/19/23 02/19/23 02:18 04:00 05:00 Temperature 36.7 C Heart Rate 72 75 70 Respiratory 18 20 13 Rate Blood Pressure 133/73 H 161/80 H 166/84 H O2 Saturation 97 96 97 If not protocol 2 : Oxygen Flow, liters/minute 02/19/23 02/19/23 02/19/23 06:00 06:30 08:39 Temperature Heart Rate 70 67 59 L Respiratory 20 18 12 Rate Blood Pressure 147/84 H 153/71 H 150/66 H O2 Saturation 98 96 94 If not protocol 2 : Oxygen Flow, liters/minute Oxygen O2 Source Nasal cannula - Labs Labs: Laboratory Tests 02/19/23 02/19/23 02/19/23 04:48 04:48 04:48 WBC 6.6 RBC 4.64 Hgb 13.4 Hct 41.6 MCV 89.7 MCH 28.9 MCHC 32.2 RDW 13.7 Plt Count 321 MPV 8.6 Neut # (Auto) 4.0 Lymph # (Auto) 1.7 [place] # (Auto) 0.8 Eos # (Auto) 0.1 Baso # (Auto) 0.0 Absolute Nucleated RBC 0.00 Nucleated RBC % 0.0 PT 11.0 INR 1.0 Sodium 139 Potassium 3.7 Chloride 102 Carbon Dioxide 28 Anion Gap 9.0 BUN 24 H Creatinine 1.0 Estimated GFR (MDRD) 53 L Glucose 119 H Calcium 10.1 Total Bilirubin 0.4 AST 17 ALT 11 Alkaline Phosphatase 67 Total Protein 7.2 Albumin 4.5 Globulin 2.7 Albumin/Globulin Ratio 1.7 PD Medical Decision Making - ED course Complexity details: reviewed results, re-evaluated patient, d/w patient ED course: 612 - (Ortho spine, [facility]) - He was unavailable to speak as he was heading into the OR but he reviewed the images and passed on to the transfer center to relay to us that we should keep this patient in a hard cervical collar but she does not need to be transferred. She can follow-up in the spine clinic in 2 weeks. Patient is a 77-year-old female presenting for evaluation after a ground-level fall at home. She denies any precipitating symptoms or syncope. She reports this is related to a trip and fall. She has an abrasion to her nose. His tetanus is up-to-date. Normal neuro exam. Does have C-spine tenderness so cervical collar was placed during initial evaluation. CT head and cervical spine were obtained. A CT head which I reviewed is negative for intracranial hemorrhage. CT C-spine demonstrates an acute posterior arch fracture of C1 which is minimally displaced as well as age-indeterminate nondisplaced fractures of the posterior arch of C1 as well as an incomplete fracture, type II odontoid which also is age-indeterminate. Images were sent to [facility] and orthospine was consulted. Per orthospine patient does not require transfer and should be kept in a hard cervical collar. Screening labs were obtained and reviewed and without significant findings.Patient had improvement in her pain with IV morphine. Patient lives alone at home. Social work consult has been placed to help arrange for a safe discharge plan given that she has to wear the cervical collar and maintain C-spine precautions. Patient to be signed out to oncoming physician at shift change. Departure - Departure Clinical Impression: Closed C1 fracture, Fall at home, Abrasion of nose, Head injury Forms: PCP List
[2023-02-19] MEDS ORDERED: ACETAMINOPHEN 500 MG TABLET PO STA (04:08)
[2023-02-19] MEDS ORDERED: ONDANSETRON 4 MG/2 ML VIAL IVP STA (04:16)
[2023-02-19] MEDS ORDERED: MORPHINE 2 MG/ML CARPUJECT IVP STA (04:16)
[2023-02-19 04:58] LABS: BASOPHILS % (AUTO) 0.5 %; EOSINOPHILS # (AUTO) 0.1 10^3/uL (0.0-0.7); EOSINOPHILS % (AUTO) 1.2 %; HCT - HEMATOCRIT 41.6 % (37.0-47.0); HGB - HEMOGLOBIN 13.4 g/dL (12.0-16.0); LYMPHOCYTES # (AUTO) 1.7 10^3/uL (1.5-3.5); LYMPHOCYTES % (AUTO) 24.9 %; MEAN CORPUSCULAR HEMOGLOBIN 28.9 pg (27.0-31.0); MEAN CORPUSCULAR HGB CONC 32.2 g/dL (32.0-36.0); MEAN CORPUSCULAR VOLUME 89.7 fL (81.0-99.0); MEAN PLATELET VOLUME 8.6 fL (7.9-10.8); MONOCYTES # (AUTO) 0.8 10^3/uL (0.0-1.0); MONOCYTES % (AUTO) 12.1 %; NEUTROPHILS % (AUTO) 60.7 %; PLT - PLATELET COUNT 321 10^3/uL (130-450); RED BLOOD COUNT 4.64 10^6/uL (4.20-5.40); RED CELL DISTRIBUTION WIDTH 13.7 % (12.0-15.0); WHITE BLOOD COUNT 6.6 x10^3/uL (4.8-10.8)
[2023-02-19 05:11] LABS: ALBUMIN 4.5 g/dL (3.2-5.5); ALBUMIN/GLOBULIN RATIO 1.7 (1.0-2.2); BILIRUBIN,TOTAL 0.4 mg/dL (0.2-1.0); CALCIUM 10.1 mg/dL (8.5-10.3); POTASSIUM 3.7 mmol/L (3.5-4.5); TOTAL PROTEIN 7.2 g/dL (6.4-8.9)
[2023-02-19] MEDS ORDERED: ONDANSETRON 4 MG/2 ML VIAL IVP PRN (06:30)
--- NOTE | 2023-02-19 07:16 | CT Report ---
PROCEDURE: CERVICAL SPINE WO INDICATIONS: fall/neck pain TECHNIQUE: Noncontrast 3 mm thick sections acquired from the skull base to the T4 level. Sagittal and coronal r eformats were then constructed. For radiation dose reduction, the following was used: automated exp osure control, adjustment of mA and/or kV according to patient size. COMPARISON: None. FINDINGS: Image quality: Excellent. Bones: There is a fracture at the base of the dens (type II). There is a fracture of the posterior an d left lateral arch of C1. Grade 1 anterolisthesis of C3 on C4, C7 on T1 and C4 on C5 secondary to fa cet arthrosis. Moderate, multilevel degenerative disc disease and facet arthrosis. Soft tissues: Prevertebral soft tissues are normal in thickness. No paravertebral hematomas. No ap ical pneumothoraces. IMPRESSION: Type II dens fracture. Minimally displaced fractures through the posterior and lateral arch the C1 vertebral body. Reviewed by: Des Anne on 02/19/2023 7:15 AM PDT Approved by: Des Anne on 02/19/2023 7:15 AM PDT Station ID: [id number]
--- NOTE | 2023-02-19 07:18 | CT Report ---
PROCEDURE: HEAD WO INDICATIONS: head injury TECHNIQUE: Noncontrast 4.5 mm thick angled axial sections acquired from the foramen magnum to the vertex. For r adiation dose reduction, the following was used: automated exposure control, adjustment of mA and/or kV according to patient size. COMPARISON: None. FINDINGS: Image quality: Excellent. CSF spaces: Basal cisterns are patent. No extra-axial fluid collections. Ventricles are normal in size and shape. Brain: No midline shift. No intracranial masses or hemorrhage. [place]-white matter interface is norm al. Focus of encephalomalacia in the right occipital lobe . Skull and face: Calvarium and visualized facial bones are intact, without suspicious lesions. Poste rior arch fracture of C1, better described on same day neck CT. Sinuses: Visualized sinuses and mastoids are clear. IMPRESSION: No acute intracranial pathology. Findings are concordant with preliminary interpretation provided by [facility]. Reviewed by: Des Anne on 02/19/2023 7:16 AM PDT Approved by: Des Anne on 02/19/2023 7:16 AM PDT Station ID: [id number]
[2023-02-19] MEDS: PANTOPRAZOLE 40 MG TABLET PO SCH (08:34)
[2023-02-19] MEDS: hydroCHLOROthiazide 25 MG TABLET PO SCH (08:34)
[2023-02-19] MEDS: amLODIPine 5 MG TABLET PO SCH (08:34)
[2023-02-19] MEDS: oxyCODONE 5 MG TABLET PO PRN (10:29)
[2023-02-19] MEDS: lamoTRIgine 100 MG TABLET PO SCH ×2 (11:47→18:15)
--- NOTE | 2023-02-19 19:10 | ED Physician Documentation ---
ED Addendum - Addendum Addendum: 02/19/23 19:09 Couple of the same and I will get the patient was signed out to me at change of shift, pending social work consult after sustaining a nonoperable high C-spine fracture from a fall. The patient had no issues throughout the day. She was comfortable and at this point, we are awaiting social work consult to help determine the best situation for the patient to be in as she recovers. The patient is signed out to the oncoming emergency physician, pending social work evaluation and final disposition.
[2023-02-20] MEDS ORDERED: BACITRACIN ZINC OINT 1 PACKET TOP STA (04:50)
[2023-02-20] MEDS: ACETAMINOPHEN 500 MG TABLET PO PRN ×2 (04:51→22:13)
[2023-02-20] MEDS: lamoTRIgine 100 MG TABLET PO SCH ×5 (05:59→23:55)
[2023-02-20] MEDS: PANTOPRAZOLE 40 MG TABLET PO SCH (05:59)
[2023-02-20] MEDS: amLODIPine 5 MG TABLET PO SCH (08:51)
[2023-02-20] MEDS: hydroCHLOROthiazide 25 MG TABLET PO SCH (08:51)
[2023-02-20] MEDS ORDERED: SODIUM CHLORIDE 0.9% 1,000 ML IV STA (12:07)
--- NOTE | 2023-02-20 12:12 | ED Physician Documentation ---
ED Addendum - Addendum Addendum: 02/20/23 12:11 Per PT nadege she is quite orthostatic. Per their charting supine blood pressure 178/74 and heart rate 64 and seated 116/73 with heart rate of 61 and she became quite symptomatic. They are recommending SNF. Patient currently does not fit criteria for SNF from a payment standpoint and does not have Medicaid. Will medicate with IV fluids, may fit criteria for admission if orthostasis not improved after IVF 02/20/23 14:13 Subsequent to IV fluids her orthostatics were no longer positive. Specifically blood pressure was 129/66 supine 139/75 standing and heart rates remaining in the 60s. 02/20/23 15:52 Patient has a robust friend support system and she has numerous friends at the bedside and they will help her at home. I did write a prescription for Percocet and sent it to [facility] and social work requested an order for home health, PT, OT, bath aide which she suggested I write on her discharge instructions and then signed them which are done. Disposition: Discharged home Condition: Stable 02/20/23 16:05 Subsequently the friends thought she would be better off if they had a night to set up her home and get some equipment in place, now the current plan is to discharge her tomorrow morning.
[2023-02-20 12:50] LABS: BASOPHILS % (AUTO) 0.2 %; EOSINOPHILS # (AUTO) 0.1 10^3/uL (0.0-0.7); EOSINOPHILS % (AUTO) 0.5 %; HCT - HEMATOCRIT 39.8 % (37.0-47.0); HGB - HEMOGLOBIN 12.8 g/dL (12.0-16.0); LYMPHOCYTES # (AUTO) 1.1 10^3/uL (1.5-3.5); LYMPHOCYTES % (AUTO) 12.3 %; MEAN CORPUSCULAR HEMOGLOBIN 29.4 pg (27.0-31.0); MEAN CORPUSCULAR HGB CONC 32.2 g/dL (32.0-36.0); MEAN CORPUSCULAR VOLUME 91.5 fL (81.0-99.0); MEAN PLATELET VOLUME 8.5 fL (7.9-10.8); MONOCYTES # (AUTO) 0.9 10^3/uL (0.0-1.0); MONOCYTES % (AUTO) 10.3 %; NEUTROPHILS % (AUTO) 76.3 %; PLT - PLATELET COUNT 278 10^3/uL (130-450); RED BLOOD COUNT 4.35 10^6/uL (4.20-5.40); RED CELL DISTRIBUTION WIDTH 13.8 % (12.0-15.0); WHITE BLOOD COUNT 9.2 x10^3/uL (4.8-10.8)
[2023-02-20 13:10] LABS: CREATININE 0.8 mg/dL (0.6-1.3); MAGNESIUM 1.9 mg/dL (1.7-2.3); POTASSIUM 3.5 mmol/L (3.5-4.5)
[2023-02-20] MEDS: oxyCODONE 5 MG TABLET PO PRN ×2 (17:27→23:56)
[2023-02-21] MEDS: lamoTRIgine 100 MG TABLET PO SCH (06:31)
[2023-02-21] MEDS: PANTOPRAZOLE 40 MG TABLET PO SCH (06:31)
--- NOTE | 2023-02-21 07:21 | ED Physician Documentation ---
ED Addendum - Addendum Addendum: 02/21/23 07:21 The patient was signed out to me at change of shift, pending discharge in the morning. She requested a dose of pain medication once overnight but otherwise, had no issues. The patient is up for discharge at this time, pending arrival of family and friends.
[2023-02-21 07:55] VITALS: BP 152/78; O2SAT 98
[2023-02-21] MEDS ORDERED: ONDANSETRON ODT 4 MG TABLET TL STA (09:12)
== END 2023-02-21 09:29 | disposition home or self-care (01) ==
LOC: ED 02:09
DX: S00.31XA Abrasion of nose, initial encounter (principal); S12.031A Nondisplaced posterior arch fracture of first cervical vertebra, initial encounter for closed fracture; S09.90XA Unspecified injury of head, initial encounter; W01.0XXA Fall on same level from slipping, tripping and stumbling without subsequent striking against object, initial encounter; Y93.01 Activity, walking, marching and hiking; Y92.003 Bedroom of unspecified non-institutional (private) residence as the place of occurrence of the external cause; I95.1 Orthostatic hypotension; R11.2 Nausea with vomiting, unspecified
CPT/HCPCS: 36415; 70450; 72125; 80048; 80053; 80175; 83690; 83735; 85025; 85610; 96374; 96375; 96376; 97162; 97167; 99283; 99285; A9270; Q0162

== ENCOUNTER 2023-02-21 18:41 | Emergency (ER) | payer MEDICARE, OTHER ==
[2023-02-21] MEDS ORDERED: ONDANSETRON 4 MG/2 ML VIAL IVP STA (18:57)
[2023-02-21 19:07] LABS: BASOPHILS % (AUTO) 0.3 %; EOSINOPHILS % (AUTO) 0.4 %; HCT - HEMATOCRIT 44.9 % (37.0-47.0); HGB - HEMOGLOBIN 14.5 g/dL (12.0-16.0); LYMPHOCYTES % (AUTO) 11.2 %; MEAN CORPUSCULAR HEMOGLOBIN 29.5 pg (27.0-31.0); MEAN CORPUSCULAR HGB CONC 32.3 g/dL (32.0-36.0); MEAN CORPUSCULAR VOLUME 91.3 fL (81.0-99.0); MEAN PLATELET VOLUME 8.5 fL (7.9-10.8); MONOCYTES # (AUTO) 0.9 10^3/uL (0.0-1.0); MONOCYTES % (AUTO) 9.8 %; NEUTROPHILS # (AUTO) 7.1 10^3/uL (1.5-6.6); NEUTROPHILS % (AUTO) 77.8 %; PLT - PLATELET COUNT 306 10^3/uL (130-450); RED BLOOD COUNT 4.92 10^6/uL (4.20-5.40); RED CELL DISTRIBUTION WIDTH 13.5 % (12.0-15.0); WHITE BLOOD COUNT 9.2 x10^3/uL (4.8-10.8)
--- NOTE | 2023-02-21 19:13 | ED Physician Documentation ---
History of Present Illness - Stated complaint Stated Complaint: VOMITING - Chief complaint Chief Complaint: Neuro - Additonal information Additional information: 77-year-old female who presents with sent nausea and vomiting. The patient was actually here in the ER from 02/19 up until this morning. She had fallen and sustained a dens fracture and then was orthostatic though never met inpatient criteria and after arranging for social support at home, the patient was discharged with friends this morning. She states she vomited once on the way out to the car upon discharge and then has vomited multiple times at home today. She has no abdominal pain, she feels hungry and would like to eat but anytime she tries she vomits. She was concerned she may be getting dehydrated. She has not had a fever or chills, no chest pain or difficulty breathing, no diarrhea or constipation, no urinary symptoms, she has no abdominal pain. She has not attempted any medication for this issue. Review of Systems Constitutional: reports: Reviewed and negative Cardiac: reports: Reviewed and negative Respiratory: reports: Reviewed and negative GI: reports: Nausea, Vomiting. 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 : None HEENT: None Psych: None Musculoskeletal: Osteoarthritis Derm: None - Past Surgical History Past Surgical History: Yes General: Colonoscopy, EGD Ortho: Rotator cuff repair /AUTOMATIC TELLER MACHINE 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: Hysterectomy HEENT: Cataracts, Tonsil/Adenoidectomy - Present Medications Home Medications: Ambulatory Orders Medication Instructions Recorded Confirmed Pantoprazole Sodium [Protonix] 40 mg PO DAILY 10/02/12 02/19/23 lamoTRIgine [LaMICtal] 100 mg PO QID 10/02/12 02/19/23 Amlodipine Besylate [Norvasc] 10 mg PO DAILY 01/31/22 02/19/23 Acetaminophen [Acetaminophen Extra 500 mg PO QID PRN #50 tablet 07/31/22 02/19/23 Strength] hydroCHLOROthiazide 50 mg PO DAILY 07/31/22 02/19/23 [Hydrochlorothiazide] tiZANidine [Zanaflex] 4 mg PO Q8H PRN #20 tablet 07/31/22 02/19/23 Oxycodone HCl/Acetaminophen 1 - 2 each PO Q6H PRN #20 tablet 02/20/23 [Percocet 5-325 mg Tablet] Ondansetron Odt [Zofran] 4 mg TL Q6H PRN #10 tablet 02/21/23 - Allergies Allergies/Adverse Reactions: Allergies Allergy/AdvReac Type Severity Reaction Status Date / Time esomeprazole Allergy Mild unknown Verified 02/21/23 18:51 diazepam Allergy Unknown Hallucinati Verified 02/21/23 18:51 ons Penicillins Allergy Unknown Hallucinati Verified 02/21/23 18:51 ons blue dye Allergy Unknown Verified 02/21/23 18:51 azithromycin AdvReac tremors Verified 02/21/23 18:51 - Social History Does the pt smoke?: No Smoking Status: Never smoker Does the pt drink ETOH?: No Does the pt have substance abuse?: No - Immunizations Immunizations are current?: Yes Immunizations: TDAP current <10years - POLST Patient has POLST: No POLST Status: Full Code PD ED PE NORMAL - Vitals Vital signs reviewed: Yes - General General: Alert and oriented X 3, No acute distress, Well developed/nourished - HEENT HEENT: Atraumatic - Neck Neck: Supple, no meningeal sign, Other - Cardiac Cardiac: RRR, No murmur - Respiratory Respiratory: No respiratory distress, Clear bilaterally - Abdomen Abdomen: Normal bowel sounds, Soft, Non tender, Non distended - Back Back: No CVA TTP - Derm Derm: Normal color, Warm and dry, No rash - Extremities Extremities: No deformity, No tenderness to palpate, Normal ROM s pain, No edema, Other (ambulates w/ steady gait) - Neuro Neuro: Alert and oriented X 3 Eye Opening: Spontaneous Motor: Obeys Commands Verbal: Oriented GCS Score: 15 - Psych Psych: Normal mood, Normal affect Results - Vitals Vitals: Vital Signs - 24 hr 02/21/23 18:44 Temperature 36.8 C Heart Rate 68 Respiratory 17 Rate Blood Pressure 156/72 H O2 Saturation 97 Oxygen O2 Source Room air - Labs Labs: Laboratory Tests 02/21/23 02/21/23 19:02 19:02 WBC 9.2 RBC 4.92 Hgb 14.5 Hct 44.9 MCV 91.3 MCH 29.5 MCHC 32.3 RDW 13.5 Plt Count 306 MPV 8.5 Neut # (Auto) 7.1 H Lymph # (Auto) 1.0 L [place] # (Auto) 0.9 Eos # (Auto) 0.0 Baso # (Auto) 0.0 Absolute Nucleated RBC 0.00 Nucleated RBC % 0.0 Sodium 134 L Potassium 3.8 Chloride 95 L Carbon Dioxide 32 Anion Gap 7.0 BUN 19 Creatinine 0.7 Estimated GFR (MDRD) 81 L Glucose 124 H Calcium 10.3 Total Bilirubin 0.6 AST 15 ALT 11 Alkaline Phosphatase 66 Total Protein 7.3 Albumin 4.4 Globulin 2.9 Albumin/Globulin Ratio 1.5 Lipase 15 PD Medical Decision Making - ED course Complexity details: reviewed old records, reviewed results, re-evaluated patient, considered differential, d/w patient ED course: 77-year-old female presented here after being discharged earlier in the day after dens fracture and subsequently returning with vomiting. She is well- appearing here on physical exam, no acute distress, vital signs are stable. Her abdominal exam is reassuring without pain or guarding. We started an IV and gave her 4 mg of IV Zofran as well as a liter of normal saline. Labs were obtained which were all stable including CBC CMP. She had no further vomiting here, able to tolerate p.o., ambulated without difficulty or ataxia, and has no signs of acute abdomen or abdominal pain, or other signs of infection. Vomiting may be viral in nature vs related to recent injury or medication induced. I do believe she is stable for discharge home at this time, we will send her with short course of Zofran to use as needed and she can resume her regular Lamictal and home medications. Return precautions reviewed if new or worsening symptoms Departure - Departure Disposition: Home, Self Care Clinical Impression: Vomiting Condition: Good Instructions: ED Nausea Vomiting Prescriptions: Ondansetron Odt [Zofran] 4 mg TL Q6H PRN #10 tablet PRN Reason: Nausea / Vomiting Comments: It is unclear why you were vomiting, possibly due to a viral syndrome or due to your recent head injury. Your symptoms resolved here with a nausea medication. Your labs and vital signs are stable. You received some IV fluids and your lamictal and tylenol. I will send you home with some additional nausea medications to use as needed and a prescription for the same medication was sent to [facility]. Please continue all your other regular medications. Return if you are worsening. Forms: PCP List
[2023-02-21 19:26] LABS: ALBUMIN 4.4 g/dL (3.2-5.5); ALBUMIN/GLOBULIN RATIO 1.5 (1.0-2.2); BILIRUBIN,TOTAL 0.6 mg/dL (0.2-1.0); CALCIUM 10.3 mg/dL (8.5-10.3); CREATININE 0.7 mg/dL (0.6-1.3); POTASSIUM 3.8 mmol/L (3.5-4.5); TOTAL PROTEIN 7.3 g/dL (6.4-8.9)
[2023-02-21] MEDS ORDERED: SODIUM CHLORIDE 0.9% 1,000 ML IV STA (20:24)
[2023-02-21] MEDS ORDERED: ACETAMINOPHEN 325 MG TABLET PO STA (20:29)
[2023-02-21] MEDS ORDERED: lamoTRIgine 100 MG TABLET PO ONE (21:00)
[2023-02-21] MEDS ORDERED: ACETAMINOPHEN 500 MG TABLET PO ONE (21:00)
[2023-02-21] MEDS ORDERED: ONDANSETRON ODT 4 MG Prepack 2 TL PRN (21:38)
[2023-02-21 23:25] VITALS: BP 117/85; O2SAT 100
== END 2023-02-21 23:20 | disposition home or self-care (01) ==
LOC: ED 18:41
DX: R11.2 Nausea with vomiting, unspecified (principal); S00.31XA Abrasion of nose, initial encounter; S12.031A Nondisplaced posterior arch fracture of first cervical vertebra, initial encounter for closed fracture; S09.90XA Unspecified injury of head, initial encounter; W01.0XXA Fall on same level from slipping, tripping and stumbling without subsequent striking against object, initial encounter; Y93.01 Activity, walking, marching and hiking; Y92.003 Bedroom of unspecified non-institutional (private) residence as the place of occurrence of the external cause; I95.1 Orthostatic hypotension
CPT/HCPCS: 36415; 70450; 72125; 80048; 80053; 80175; 83690; 83735; 85025; 85610; 96374; 96375; 96376; 97162; 97167; 99283; 99285; A9270; Q0162

== ENCOUNTER 2023-02-27 11:27 | Outpatient (CLI) | payer MEDICARE, OTHER ==
[2023-02-27 11:42] LABS: BASOPHILS % (AUTO) 0.3 %; EOSINOPHILS # (AUTO) 0.1 10^3/uL (0.0-0.7); HCT - HEMATOCRIT 40.6 % (37.0-47.0); HGB - HEMOGLOBIN 13.2 g/dL (12.0-16.0); LYMPHOCYTES # (AUTO) 1.4 10^3/uL (1.5-3.5); LYMPHOCYTES % (AUTO) 23.4 %; MEAN CORPUSCULAR HEMOGLOBIN 29.6 pg (27.0-31.0); MEAN CORPUSCULAR HGB CONC 32.5 g/dL (32.0-36.0); MEAN PLATELET VOLUME 8.7 fL (7.9-10.8); MONOCYTES # (AUTO) 0.8 10^3/uL (0.0-1.0); MONOCYTES % (AUTO) 13.2 %; NEUTROPHILS # (AUTO) 3.7 10^3/uL (1.5-6.6); NEUTROPHILS % (AUTO) 61.8 %; PLT - PLATELET COUNT 310 10^3/uL (130-450); RED BLOOD COUNT 4.46 10^6/uL (4.20-5.40); RED CELL DISTRIBUTION WIDTH 13.7 % (12.0-15.0)
[2023-02-27 12:02] LABS: ALBUMIN 4.3 g/dL (3.2-5.5); ALBUMIN/GLOBULIN RATIO 1.5 (1.0-2.2); BILIRUBIN,TOTAL 0.5 mg/dL (0.2-1.0); CALCIUM 9.9 mg/dL (8.5-10.3); CREATININE 0.8 mg/dL (0.6-1.3); POTASSIUM 3.8 mmol/L (3.5-4.5); TOTAL PROTEIN 7.1 g/dL (6.4-8.9)
[2023-02-27 12:14] LABS: THYROID STIMULATING HORMONE 1.26 uIU/mL (0.34-5.60)
== END 2023-02-27 11:28 | disposition home or self-care (01) ==
LOC: LAB 11:27
PROVIDERS: ATTEND Nurse Practitioner
DX: I10 Essential (primary) hypertension (principal); G40.909 Epilepsy, unspecified, not intractable, without status epilepticus; F32.A Depression, unspecified
CPT/HCPCS: 36415; 80053; 80175; 84443; 85025

== ENCOUNTER 2023-03-07 02:55 | Emergency (ER) | payer MEDICARE, OTHER ==
--- NOTE | 2023-03-07 03:01 | ED Physician Documentation ---
PD HPI NECK PAIN - Stated complaint Stated Complaint: NECK PX - History obtained from History obtained from: Patient - Additional information Additional information: HPI from patient. Patient was evaluated in this emergency department 02/19/2023 after she fell; CT cervical spine demonstrated C1 fracture (acute) as well as odontoid fracture (age indeterminate). The ED MD contacted closing specialist at [facility] and was advised that the patient did not require nor benefit from transfer; the recommendation was to maintain patient in hard cervical collar and can be followed up in outpatient setting. The patient spent another 2 days in [facility] emergency department for social work consult and subsequent arranging for her support system to be able to take care of the patient at home. Patient was reevaluated 2 more times in this emergency department; 1 visit due to vomiting, and a subsequent visit due to problems related to the neck brace resulting in a change to a different type of collar. The patient has followed up with the spinal surgeon group at [facility]. Per the patient and patient's friend (who is currently in the ED at patient's bedside), the plan is to maintain the patient in her collar for another few sanjay hs. The patient presents at this time due to neck pain. Patient says she has been mostly using Tylenol with good pain relief, and thus tonight's pain, unrelieved with 2 tablets of Percocet) has not been typical since sustaining the neck fracture. She says this pain started approximately 11 AM yesterday without any specific inciting event; she did not have reinjury. Patient's friend notes that the patient was back in her own apartment yesterday for the first time since the injury, and the patient says that she did move some boxes but nothing heavy and no lifting was involved. The patient denies weakness, numbness. Patient says she recently had (outpatient) xrays to ensure no significant changes since the injury and that the xrays were without concerning findings. 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: Hysterectomy HEENT: Cataracts, Tonsil/Adenoidectomy - Present Medications Home Medications: Ambulatory Orders Medication Instructions Recorded Confirmed Pantoprazole Sodium [Protonix] 40 mg PO DAILY 10/02/12 03/07/23 lamoTRIgine [LaMICtal] 100 mg PO QID 10/02/12 03/07/23 Amlodipine Besylate [Norvasc] 10 mg PO DAILY 01/31/22 03/07/23 Oxycodone HCl/Acetaminophen 1 - 2 each PO Q6H PRN #20 tablet 02/20/23 03/07/23 [Percocet 5-325 mg Tablet] Docusate Sodium 100Mg Capsule 1 cap PO Q6HR PRN 03/07/23 03/07/23 [Colace 100Mg Capsule] hydroCHLOROthiazide [Hydrodiuril] 1 tab PO DAILY 03/07/23 03/07/23 oxyCODONE [Roxicodone] 5 mg PO Q6H PRN #7 tablet 03/07/23 - Allergies Allergies/Adverse Reactions: Allergies Allergy/AdvReac Type Severity Reaction Status Date / Time esomeprazole Allergy Mild unknown Verified 03/07/23 03:07 diazepam Allergy Unknown Hallucinati Verified 03/07/23 03:07 ons Penicillins Allergy Unknown Hallucinati Verified 03/07/23 03:07 ons blue dye Allergy Unknown Verified 03/07/23 03:07 azithromycin AdvReac tremors Verified 03/07/23 03:07 - Social History Does the pt smoke?: No Smoking Status: Never smoker Does the pt drink ETOH?: No Does the pt have substance abuse?: No - Immunizations Immunizations are current?: Yes Immunizations: TDAP current <10years - POLST Patient has POLST: No POLST Status: Full Code PD ED PE NORMAL - Vitals Vital signs reviewed: Yes - General General: Alert and oriented X 3, No acute distress, Well developed/nourished, Other ([place] collar in place) - Cardiac Cardiac: RRR, No murmur - Neuro Neuro: Alert and oriented X 3, document processing specialist 2-12 intact, No motor deficit, No sensory deficit, Normal speech Eye Opening: Spontaneous Motor: Obeys Commands Verbal: Oriented GCS Score: 15 Results - Vitals Vitals: Vital Signs - 24 hr 03/07/23 03/07/23 03:00 07:10 Temperature 36 C L Heart Rate 75 63 Respiratory 20 22 Rate Blood Pressure 175/81 H 162/73 H O2 Saturation 98 99 Oxygen O2 Source Room air - Rads (name of study) CT cervical spine Relevant Findings:: Prelim report reviewed, See rad report PD Medical Decision Making - ED course Complexity details: reviewed old records, reviewed results, re-evaluated patient, considered differential, d/w patient ED course: Patient is given 4 mg IM morphine. A CT of the cervical spine is undertaken to assess for any concerning changes compared to the CT performed last month after she had fallen. There is no report of reinjury, although the patient and her friend are indicating that she was a little bit more active yesterday than she had been since the injury. Radiologist's interpretation of the CT is "the right and left posterior C1 arch fractures appear slightly more conspicuous on current exam with no progressive healing. Incomplete type II odontoid fracture relatively stable. 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 MRI may be of further diagnostic value." Given that patient is not having any neurologic signs/symptoms (such as weakness, numbness, bowel/bladder incontinence), the finding of the C1 fractures being "slightly more conspicuous" does not seem to represent a clinically significant finding. I discussed these results with the patient. I advised her to contact her spinal surgeon to inform them that she came to the ER for neck pain, that there were some subtle changes on the CT scan, and that she is not having adequate pain relief with the prescribed medication. I asked the MANAGING PRINCIPAL to have the drivability technician push the CT images to [facility] so that the patient's orthopedic surgeon will have access to these images. Patient had some nausea during her stay in the ED and for this she is given 4 mg TL Zofran. Prior to discharge, she says she is having increasing pain again, although she last took her Percocet over 6 hours ago. She is given 5 mg p.o. oxycodone and discharged. I electronically submitted a prescription for 7 tablets of 5 mg oxycodone to patient's pharmacy of choice ([facility] in [place]). I reviewed with her that she should take the Percocet that was prescribed from her previous ED visit as per label instructions; if she does not have adequate relief with the maximum dose of the Percocet, she can then take a dose of the oxycodone I am prescribing in addition to the Percocet. I explained to her that if this does not provide adequate relief, she should return to the emergency department for reevaluation. Departure - Departure Disposition: 01 Home, Self Care Clinical Impression: Neck pain, Closed C1 fracture, Closed dens fracture Condition: Good Instructions: Fx Neck Spine Prescriptions: oxyCODONE [Roxicodone] 5 mg PO Q6H PRN #7 tablet PRN Reason: Pain >8 Comments: On adonis's CT scan of your neck, the radiologist does note that the C1 fractures "appear slightly more conspicuous", but this does not represent a significant change. As we discussed, I recommend that you contact your spinal surgery group to inform them that you had to come to the emergency department for increasing neck pain and that there was subtle change in the C1 fracture's appearance ("slightly more conspicuous"); your spinal surgeon might want to reevaluate you soon for these findings and worsening neck pain. I have electronically submitted a prescription for oxycodone to the [facility] pharmacy in [place]. Take the percocet (oxycodone/acetaminophen) that was prescribed on your previous ER visit as per label instructions. If this does not provide adequate relief, you can take ONE tablet of the oxycodone I am prescribing ever 6 hours IN ADDITION to the percocet. As we discussed, increasing the amount of oxycodone will provide stronger pain relief, but this will also increase risk of side effects including unsteady gait which could lead to another fall. Forms: PCP List Discharge Date/Time: 03/07/23 07:55
[2023-03-07] MEDS ORDERED: MORPHINE 2 MG/ML CARPUJECT IM STA (03:27)
[2023-03-07] MEDS ORDERED: ONDANSETRON ODT 4 MG TABLET TL STA (06:03)
[2023-03-07] MEDS ORDERED: oxyCODONE 5 MG TABLET PO STA (06:03)
[2023-03-07 07:17] VITALS: BP 162/73; O2SAT 99
--- NOTE | 2023-03-07 08:45 | CT Report ---
PROCEDURE: CERVICAL SPINE WO INDICATIONS: recent C1 fracture, now with worsening neck pain TECHNIQUE: Noncontrast 3 mm thick sections acquired from the skull base to the T4 level. Sagittal and coronal r eformats were then constructed. For radiation dose reduction, the following was used: automated exp osure control, adjustment of mA and/or kV according to patient size. COMPARISON: CT 02/19/2023 FINDINGS: Image quality: Excellent. Bones: Again seen are the fractures through the bilateral posterior arch of C1, similar in alignment. Similar incomplete type II odontoid fracture. Stable grade 1 anterolisthesis of C4 on C5 and C7 on T 1. Moderate to severe, multilevel degenerative disc disease and facet arthrosis. Soft tissues: Prevertebral soft tissues are normal in thickness. No paravertebral hematomas. No ap ical pneumothoraces. IMPRESSION: Unchanged C1 arch fractures and type II dens fracture. Findings are concordant with preliminary interpretation provided by [facility]. Reviewed by: Des Anne on 03/07/2023 8:43 AM PDT Approved by: Des Anne on 03/07/2023 8:43 AM PDT Station ID: [id number]
== END 2023-03-07 07:55 | disposition home or self-care (01) ==
LOC: ED 02:55
DX: M54.2 Cervicalgia (principal); R11.0 Nausea; S12.090D Other displaced fracture of first cervical vertebra, subsequent encounter for fracture with routine healing; W19.XXXD Unspecified fall, subsequent encounter
CPT/HCPCS: 72125; 99283; 99284; A9270; Q0162

== ENCOUNTER 2023-03-23 23:32 | Emergency (ER) | payer MEDICARE, OTHER ==
[2023-03-24] MEDS ORDERED: HYDROmorphone 1 MG/ML CARPUJECT IM STA (00:13)
--- NOTE | 2023-03-24 01:49 | CT Report ---
PROCEDURE: CERVICAL SPINE WO INDICATIONS: fall, tweaked neck. history of fracture in sept TECHNIQUE: Noncontrast 3 mm thick sections acquired from the skull base to the T4 level. Sagittal and coronal r eformats were then constructed. For radiation dose reduction, the following was used: automated exp osure control, adjustment of mA and/or kV according to patient size. COMPARISON: 03/07/2023, 02/19/2023 FINDINGS: Image quality: Excellent. Bones: Intact craniocervical junction. Nondisplaced right posterior C1 arch fracture, left C1 pedicle fracture with extension to the inferior left vertebral foramen are stable. There is posterior sublux ation of C1 on C2 with trace left lateral translation. An avulsion fracture the tip of the odontoid a s well as a mildly displaced and slightly angulated fracture through the base the odontoid is stable. Trace anterolisthesis C3 on 4, grade 1 anterolisthesis C4 on 5 and C7 on T1. Severe multilevel disc height loss from C4 through the thoracic spine. There is severe multilevel bilateral facet arthropath y. No perched facet. Soft tissues: Prevertebral soft tissues are normal in thickness. Chronic soft tissue thickening arun und the C2 vertebral body posteriorly. No new paravertebral hematomas. No apical pneumothoraces. IMPRESSION: 1. No new cervical spine fracture or subluxation. 2. Redemonstrated C1 and C2 fractures with associated posterior soft tissue swelling. 3. Findings are superimposed Reviewed by: Anne Roberts MD on 03/24/2023 1:47 AM PDT Approved by: Anne Roberts MD on 03/24/2023 1:47 AM PDT Station ID: [id number]
--- NOTE | 2023-03-24 02:00 | ED Physician Documentation ---
History of Present Illness - Stated complaint Stated Complaint: NECK PX - Chief complaint Chief Complaint: Trauma Hd/Nk - History obtained from History obtained from: Patient - Additonal information Additional information: 78yF with pmh recent fall in january with c1 and c2 fractures requiring her to wear a c collar at all times p/w neck twinging today after having a shower and moving it suddenly. denies fall, ht, or specific injury. denies numbness/weakness, bowel or bladder incontinence. PD PAST MEDICAL HISTORY - Past Medical History Past Medical History: Yes Cardiovascular: None Respiratory: None Neuro: Seizure disorder Endocrine/Autoimmune: None GI: GERD MATE FIRST: None : None HEENT: None Psych: None Musculoskeletal: Osteoarthritis Derm: None - Past Surgical History Past Surgical History: Yes General: Colonoscopy, EGD Ortho: Rotator cuff repair /MATE FIRST: Hysterectomy HEENT: Cataracts, Tonsil/Adenoidectomy - Present Medications Home Medications: Ambulatory Orders Medication Instructions Recorded Confirmed Pantoprazole Sodium [Protonix] 40 mg PO DAILY 10/02/12 03/23/23 lamoTRIgine [LaMICtal] 100 mg PO QID 10/02/12 03/23/23 Amlodipine Besylate [Norvasc] 10 mg PO DAILY 01/31/22 03/23/23 Oxycodone HCl/Acetaminophen 1 - 2 each PO Q6H PRN #20 tablet 02/20/23 03/23/23 [Percocet 5-325 mg Tablet] Docusate Sodium 100Mg Capsule 1 cap PO Q6HR PRN 03/07/23 03/23/23 [Colace 100Mg Capsule] hydroCHLOROthiazide [Hydrodiuril] 1 tab PO DAILY 03/07/23 03/23/23 oxyCODONE [Roxicodone] 5 mg PO Q6H PRN #7 tablet 03/07/23 03/23/23 - Allergies Allergies/Adverse Reactions: Allergies Allergy/AdvReac Type Severity Reaction Status Date / Time esomeprazole Allergy Mild unknown Verified 03/23/23 23:38 diazepam Allergy Unknown Hallucinati Verified 03/23/23 23:38 ons Penicillins Allergy Unknown Hallucinati Verified 03/23/23 23:38 ons blue dye Allergy Unknown Verified 03/23/23 23:38 azithromycin AdvReac tremors Verified 03/23/23 23:38 - Social History Does the pt smoke?: No Smoking Status: Never smoker Does the pt drink ETOH?: No Does the pt have substance abuse?: No - Immunizations Immunizations are current?: Yes Immunizations: TDAP current <10years - POLST Patient has POLST: No POLST Status: Full Code PD ED PE NORMAL - Vitals Vital signs reviewed: Yes - General General: Alert and oriented X 3, Well developed/nourished, Other (mild to moderate distress) - HEENT HEENT: Atraumatic, PERRL, EOMI, Other (c collar in place) - Neck Neck: Other (+cervical ttp) - Derm Derm: Normal color, Warm and dry - Extremities Extremities: Other (CSM intact all four extremities.) - Neuro Neuro: Alert and oriented X 3, No motor deficit, No sensory deficit Eye Opening: Spontaneous Motor: Obeys Commands Verbal: Oriented GCS Score: 15 Results - Vitals Vitals: Vital Signs - 24 hr 03/23/23 23:38 Temperature 36.5 C Heart Rate 72 Respiratory 16 Rate Blood Pressure 150/73 H O2 Saturation 96 Oxygen O2 Source Room air PD Medical Decision Making - ED course ED course: 78yF presents to ED with acute on chronic neck pain s/p accident in january with cervical neck fractures. patient with no new fractures or injuries on ct cervical spine. denies other injury, denies specific incident. IM dilaudid improved pain significantly. pain meds already at home. advised outpatient follow up with neurosurgery. return precautions given Departure - Departure Disposition: Home, Self Care Clinical Impression: Neck pain, Cervical spine fracture Condition: Stable Instructions: ED Neck Back Pain General Comments: You were seen in the emergency department for neck pain. You have no new injuries to your neck on ct. Please follow-up with your neurosurgeon and primary care provider and return to the emergency department if you have any new or worsening symptoms or other concerns. Forms: PCP List
[2023-03-24 02:39] VITALS: BP 180/73; O2SAT 94
== END 2023-03-24 02:29 | disposition home or self-care (01) ==
LOC: ED 23:32
DX: M54.2 Cervicalgia (principal); M84.48XA Pathological fracture, other site, initial encounter for fracture; Z79.899 Other long term (current) drug therapy
CPT/HCPCS: 72125; 96372; 99283; 99284; J1170

== ENCOUNTER 2023-05-19 09:13 | Outpatient (CLI) | payer MEDICARE, OTHER ==
[2023-05-19] MEDS ORDERED: iohexoL-300 100 ML VIAL IVP ONE (12:28)
--- NOTE | 2023-05-20 08:54 | CT Report ---
PROCEDURE: CT Angio Head/Neck INDICATIONS: DIZZINESS, C1 C2 FX TECHNIQUE: CT angiogram images were obtained from the vertex to the upper chest. Multiplanar reformat s, including maximum intensity projections were obtained. IV contrast was used. COMPARISON: CT 03/26/2023 FINDINGS: Image quality: Diagnostic Head angiography Anterior circulation: ICAs: Mild cavernous carotid calcifications bilaterally ACAs: normal and symmetric MCAs: normal and symmetric AComm: no aneurysm Venous sinuses: Patent Posterior circulation: Dominance: equal Vertebral arteries: no stenosis, occlusion, or aneurysm Basilar artery: unremarkable PComms: no aneurysm radioisotope technologist: normal and symmetric Neck angiography Aortic arch and subclavian arteries: normal flow CCAs: no stenosis, occlusion, or aneurysm. ICA origins (by NASCET criteria): no hemodynamically significant narrowing. ICAs: no stenosis, occlusion or aneurysm. ECAs: origins are patent. Vertebral arteries: No irregular narrowing, definite dissection, or occlusion. The area of the upper cervical spine is mildly limited due to streak artifact from dental hardware. Soft tissues: no significant mass, aneurysm, or lymphadenopathy. No actionable thyroid nodule identif ied. Lung apices: no pneumothorax Bones: There are degenerative changes. Segmental posterior ring of C1 fracture deformities are still apparent. Odontoid fracture lucency also apparent, with mild interval evidence of healing. Multilevel spondylolisthesis again seen elsewhere, likely degenerative. 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 IMPRESSION: No evidence of large vessel occlusion or high-grade stenosis. No significant traumatic injury to the major head/neck vessels. Persistent fracture lucencies in the upper cervical spine at C1 and C2. Consider MRI if there is high concern for further intracranial pathology. Reviewed by: Esvin Sofia MD on 05/20/2023 8:52 AM PST Approved by: Esvin Sofia MD on 05/20/2023 8:52 AM PST Station ID: [id number]
== END 2023-05-19 09:14 | disposition home or self-care (01) ==
LOC: DI 09:13
PROVIDERS: ATTEND Nurse Practitioner Family
DX: S12.101G Unspecified nondisplaced fracture of second cervical vertebra, subsequent encounter for fracture with delayed healing (principal); S12.001 Unspecified nondisplaced fracture of first cervical vertebra
CPT/HCPCS: 36415; 70496; 70498; 80048; Q9967

== ENCOUNTER 2023-05-19 09:14 | Outpatient (CLI) | payer MEDICARE, OTHER ==
[2023-05-19 09:44] LABS: CALCIUM 9.5 mg/dL (8.5-10.3); POTASSIUM 4.2 mmol/L (3.5-4.5)
== END 2023-05-19 09:15 | disposition home or self-care (01) ==
LOC: LAB 09:14
PROVIDERS: ATTEND Nurse Practitioner Adult Health
DX: S12.001 Unspecified nondisplaced fracture of first cervical vertebra (principal)
CPT/HCPCS: 36415; 80048

== ENCOUNTER 2023-06-12 11:41 | Outpatient (CLI) | payer MEDICARE, OTHER ==
--- NOTE | 2023-06-12 13:02 | XRAY Report ---
PROCEDURE: Cervical Spine 4-5V INDICATIONS: CERVICAL FRACTURE TECHNIQUE: 4 views of the cervical spine acquired. COMPARISON: CT cervical spine 03/26/2023 FINDINGS: Bones: As identified on prior exam, there is a fracture at the base of the dens as well as posterior arch of C1. Fracture lucencies remain visible although alignment is stable on neutral view. Flexion a nd extension views demonstrate approximate 1 mm difference in positioning of the dens upon the base o f C2. Soft tissues: No prevertebral soft tissue swelling. IMPRESSION: 1 mm change in alignment between flexion and extension as above. Reviewed by: Jackie Glover MD on 06/12/2023 1:01 PM PST Approved by: Jackie Glover MD on 06/12/2023 1:01 PM PST Station ID: [id number]
== END 2023-06-12 11:42 | disposition home or self-care (01) ==
LOC: DI 11:41
PROVIDERS: ATTEND Nurse Practitioner Family
DX: S12.001 Unspecified nondisplaced fracture of first cervical vertebra (principal)

== ENCOUNTER 2023-07-03 06:14 | Outpatient (CLI) | payer MEDICARE, OTHER | END 2023-07-03 23:59 | disposition critical access hospital (66) | LOC: EMS 06:14 | DX: M54.2 Cervicalgia (principal) | CPT/HCPCS: A0425; A0429 ==

== ENCOUNTER 2023-07-03 06:19 | Emergency (ER) | payer MEDICARE, OTHER ==
[2023-07-03] MEDS: ONDANSETRON ODT 4 MG TABLET TL STA (06:37)
[2023-07-03] MEDS: HYDROcod/ACETAM 5/325 MG TABLET PO STA (06:37)
--- NOTE | 2023-07-03 06:56 | ED Physician Documentation ---
History of Present Illness - Stated complaint Stated Complaint: NECK PX - Chief complaint Chief Complaint: Trauma Hd/Nk - History obtained from History obtained from: Patient - Additonal information Additional information: The patient comes to the emergency department via EMS for chief complaint of neck pain. The patient is in the midst of a long recovery from a C1-C2 fracture that she sustained back in January, and has been in a rigid collar ever since. She is followed by neurosurgery in [place]. They deemed the fracture nonoperable and when the patient was recently seen in their clinic, they determined that she still had a little too much movement on her flex ex studies, and decided that she needed another 3 months in the collar, which will be followed by CT scan. The patient denies any new injury. She states that she wears the collar all the time, even when she is showering. She states that it is hard for her to get comfortable at night, but that last night, she just felt as though she could not find any comfortable position at all and she developed pain in the back of her neck but just got worse and worse.She states that she has oxycodone to take at home but is very reluctant to take this so just takes Excedrin when her neck pain flares up. Her last Excedrin was around 3:00 this morning and she states it just has not helped. She did not want to take the oxycodone because it makes her nauseated and she only had 1 Zofran left, so she called 911 instead. The patient denies any numbness, tingling, or weakness in her extremities. She states she had physical therapy and home health for a month after she got home from the hospital after her initial injury and that she actually feels that she is stronger and has better balance than she had before the injury occurred. No other complaints at this time. PD PAST MEDICAL HISTORY - Past Medical History Cardiovascular: None Respiratory: None Neuro: Seizure disorder Endocrine/Autoimmune: None GI: GERD SELECTOR PACKER: None : None HEENT: None Psych: None Musculoskeletal: Osteoarthritis Derm: None - Past Surgical History Past Surgical History: Yes General: Colonoscopy, EGD Ortho: Rotator cuff repair /SELECTOR PACKER: Hysterectomy HEENT: Cataracts, Tonsil/Adenoidectomy - Present Medications Home Medications: Ambulatory Orders Medication Instructions Recorded Confirmed Pantoprazole Sodium [Protonix] 40 mg PO DAILY 10/02/12 03/23/23 lamoTRIgine [LaMICtal] 100 mg PO QID 10/02/12 03/23/23 Amlodipine Besylate [Norvasc] 10 mg PO DAILY 01/31/22 03/23/23 Oxycodone HCl/Acetaminophen 1 - 2 each PO Q6H PRN #20 tablet 02/20/23 03/23/23 [Percocet 5-325 mg Tablet] Docusate Sodium 100Mg Capsule 1 cap PO Q6HR PRN 03/07/23 03/23/23 [Colace 100Mg Capsule] hydroCHLOROthiazide [Hydrodiuril] 1 tab PO DAILY 03/07/23 03/23/23 oxyCODONE [Roxicodone] 5 mg PO Q6H PRN #7 tablet 03/07/23 03/23/23 Ondansetron Odt [Zofran] 4 mg TL Q6H PRN #20 tablet 07/03/23 - Allergies Allergies/Adverse Reactions: Allergies Allergy/AdvReac Type Severity Reaction Status Date / Time esomeprazole Allergy Mild unknown Verified 07/03/23 06:31 diazepam Allergy Unknown Hallucinati Verified 07/03/23 06:31 ons Penicillins Allergy Unknown Hallucinati Verified 07/03/23 06:31 ons blue dye Allergy Unknown Verified 07/03/23 06:31 cephalexin Allergy Unknown Verified 07/03/23 06:41 lisinopril Allergy Unknown Verified 07/03/23 06:41 azithromycin AdvReac tremors Verified 07/03/23 06:31 - Social History Does the pt smoke?: No Smoking Status: Never smoker Does the pt drink ETOH?: No Does the pt have substance abuse?: No - Immunizations Immunizations are current?: Yes Immunizations: TDAP current <10years - POLST Patient has POLST: No POLST Status: Full Code PD ED PE NORMAL - Vitals Vital signs reviewed: Yes - General General: Alert and oriented X 3, No acute distress, Well developed/nourished - HEENT HEENT: Atraumatic, EOMI, Moist mucous membranes - Neck Neck: Supple, no meningeal sign, Other (Mild bony tenderness superior C-spine wi th tenderness over adjacent musculature. Rigid collar in place prior to examination.) - Cardiac Cardiac: RRR, No murmur, Strong equal pulses - Respiratory Respiratory: No respiratory distress, Clear bilaterally - Abdomen Abdomen: Soft, Non tender, Non distended - Derm Derm: Normal color, Warm and dry, No rash - Extremities Extremities: No deformity, No edema - Neuro Neuro: Alert and oriented X 3, feed elevator worker 2-12 intact, No motor deficit, No sensory deficit, Normal speech, Other (5+ strength bilaterally, and equal. No deficits in all 4 extremities.) - Psych Psych: Normal mood, Normal affect Results - Vitals Vitals: Vital Signs - 24 hr 07/03/23 07/03/23 07/03/23 06:21 06:30 07:33 Temperature 36.3 C L Heart Rate 62 55 L 48 L Respiratory 18 16 16 Rate Blood Pressure 134/91 H 126/82 H 126/64 O2 Saturation 98 96 94 Oxygen O2 Source Room air - Rads (name of study) Cervical spine XR Relevant Findings:: Final report received, See rad report (No gross change in fractures) PD Medical Decision Making - ED course Complexity details: reviewed results, re-evaluated patient, considered differential, d/w patient ED course: The patient did not have any neurologic deficits and had not had any reinjury to raise concern for any sort of trauma to her fracture site. We discussed appropriate use of her narcotic pain medication at home, and that prior to calling an ambulance for nontraumatic pain, she should consider taking the medication she already has for pain at home. I we will refill her Zofran. She has undergone x-rays here in the emergency department, which show no new change in her fracture site. Given that the pt has not had a re-injury to trigger the onset of this pain, and has no neurologic sx, I do not feel CT is indicated today. We have discussed home management of the sx, as well as the usual indications for return. Departure - Departure Disposition: 01 Home, Self Care Clinical Impression: Closed fracture of cervical vertebra Qualifiers: Encounter type: initial encounter Cervical vertebra fracture level: C1 Fracture morphology: unspecified fracture morphology Fracture alignment: nondisplaced Qualified Code(s): S12.001A - Unspecified nondisplaced fracture of first cervical vertebra, initial encounter for closed fracture Condition: Stable Instructions: ED Neck Pain No Trauma Prescriptions: Ondansetron Odt [Zofran] 4 mg TL Q6H PRN #20 tablet PRN Reason: Nausea / Vomiting Comments: Your x-rays do not show any concerning changes to the fracture site. Given that you had no trauma to trigger your neck pain, it is most likely that just have some muscle spasm in your neck, due to the inflexibility while wearing the collar. You most likely still have some inflammation at the healing fracture as well and these combined to cause neck pain. It is fine to take the Excedrin for regular pain but if this is not working, you should take your oxycodone at home, as this is why you have it. This should be done prior to calling 911 unless you have a new trauma or unless you have weakness or numbness/tingling that is new. A prescription for more of your nausea medication has been electronically transmitted to the [facility] pharmacy in [place]. Forms: PCP List Discharge Date/Time: 07/03/23 08:00
[2023-07-03 07:38] VITALS: BP 126/64; O2SAT 94
--- NOTE | 2023-07-03 07:40 | XRAY Report ---
PROCEDURE: Cervical Spine 2-3V INDICATIONS: neck pain, recovering from C1-2 fx TECHNIQUE: 3 view(s) of the cervical spine were acquired. COMPARISON: Cervical spine plain films dated 06/12/2023, CT cervical spine dated 02/19/2023, CT cervic al spine dated 03/26/2023. FINDINGS: Bones: Known dens and posterior arch of C1 fractures again noted, not grossly changed. The lateral ma sses of C1 appear intact on the odontoid view. No suspicious bony lesions. Soft tissues: No prevertebral soft tissue swelling. IMPRESSION: No gross change in known dens and posterior arch of C1 fractures. However, consider CT for more defin itive evaluation. Reviewed by: Saeid Whittington MD on 07/03/2023 7:39 AM PST Approved by: Saeid Whittington MD on 07/03/2023 7:39 AM PST Station ID: [id number]
== END 2023-07-03 08:00 | disposition home or self-care (01) ==
LOC: EDUNIT# → ED 06:19
DX: S12.001A Unspecified nondisplaced fracture of first cervical vertebra, initial encounter for closed fracture (principal); X58.XXXA Exposure to other specified factors, initial encounter
CPT/HCPCS: 72040; 99283; A9270; Q0162

== ENCOUNTER 2023-07-04 04:32 | Outpatient (CLI) | payer MEDICARE, OTHER | END 2023-07-04 04:33 | disposition critical access hospital (66) | LOC: EMS 04:32 | DX: M54.2 Cervicalgia (principal); R25.2 Cramp and spasm | CPT/HCPCS: A0425; A0429 ==

== ENCOUNTER 2023-07-04 04:40 | Emergency (ER) | payer MEDICARE, OTHER ==
--- NOTE | 2023-07-04 05:30 | ED Physician Documentation ---
PD HPI NECK PAIN - Stated complaint Stated Complaint: NECK PX - Chief complaint Chief Complaint: Trauma Hd/Nk - History obtained from History obtained from: Patient - Additional information Additional information: T+R from this ED yesterday for same c/o. Patient presents with chief complaint of neck pain. She has had ongoing neck pain since sustaining a C1 fracture in January 2023, and has been in rigid collar since the injury. Yesterday she was given zofran and rx e-prescribed to her pharmacy of choice; patient says she has oxycodone at home but cannot tolerate it unless she take ondansetron to minimize/prevent n/v. 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 She indicates to me that her neck pain is somehow different from the pain she has been experiencing in association with the neck fracture. When asked to specify what is different, she says it feels sharper and more intense than usual; location is same as it has been since the fracture. Denies recent injury PD PAST MEDICAL HISTORY - Past Medical History Cardiovascular: None Respiratory: None Neuro: Seizure disorder Endocrine/Autoimmune: None GI: GERD MAMMOGRAPHY TECH: None : None HEENT: None Psych: None Musculoskeletal: Osteoarthritis Derm: None - Past Surgical History Past Surgical History: Yes General: Colonoscopy, EGD Ortho: Rotator cuff repair /MAMMOGRAPHY TECH: Hysterectomy HEENT: Cataracts, Tonsil/Adenoidectomy - Present Medications Home Medications: Ambulatory Orders Medication Instructions Recorded Confirmed Pantoprazole Sodium [Protonix] 40 mg PO DAILY 10/02/12 07/04/23 lamoTRIgine [LaMICtal] 100 mg PO QID 10/02/12 07/04/23 Amlodipine Besylate [Norvasc] 10 mg PO DAILY 01/31/22 07/04/23 Oxycodone HCl/Acetaminophen 1 - 2 each PO Q6H PRN #20 tablet 02/20/23 07/04/23 [Percocet 5-325 mg Tablet] Docusate Sodium 100Mg Capsule 1 cap PO Q6HR PRN 03/07/23 07/04/23 [Colace 100Mg Capsule] hydroCHLOROthiazide [Hydrodiuril] 1 tab PO DAILY 03/07/23 07/04/23 oxyCODONE [Roxicodone] 5 mg PO Q6H PRN #7 tablet 03/07/23 07/04/23 Ondansetron Odt [Zofran] 4 mg TL Q6H PRN #20 tablet 07/03/23 07/04/23 - Allergies Allergies/Adverse Reactions: Allergies Allergy/AdvReac Type Severity Reaction Status Date / Time esomeprazole Allergy Mild unknown Verified 07/04/23 04:55 diazepam Allergy Unknown Hallucinati Verified 07/04/23 04:55 ons Penicillins Allergy Unknown Hallucinati Verified 07/04/23 04:55 ons blue dye Allergy Unknown Verified 07/04/23 04:55 cephalexin Allergy Unknown Verified 07/04/23 04:55 lisinopril Allergy Unknown Verified 07/04/23 04:55 azithromycin AdvReac tremors Verified 07/04/23 04:55 - Social History Does the pt smoke?: No Smoking Status: Never smoker Does the pt drink ETOH?: No Does the pt have substance abuse?: No - Immunizations Immunizations are current?: Yes Immunizations: TDAP current <10years - POLST Patient has POLST: No POLST Status: Full Code PD ED PE NORMAL - Vitals Vital signs reviewed: Yes - General General: Alert and oriented X 3, No acute distress, Well developed/nourished, Other (rigid cervical collar in place) - Cardiac Cardiac: RRR, No murmur - Respiratory Respiratory: No respiratory distress, Clear bilaterally - Neuro Neuro: Alert and oriented X 3, No motor deficit, No sensory deficit Eye Opening: Spontaneous Motor: Obeys Commands Verbal: Oriented GCS Score: 15 Results - Vitals Vitals: Oxygen O2 Source Room air PD Medical Decision Making - ED course Complexity details: considered differential, d/w patient ED course: ED care turned over to oncoming ED physician (Dr. Shields) at end of my shift. Patient had unremarkable plain-film cervical spine xrays performed yesterday in ED; given c/o worsening neck pain, I have ordered cervical spine CT, the results of which are pending at end of my shift. Departure - Departure Disposition: 01 Home, Self Care Clinical Impression: C1 cervical fracture Qualifiers: Encounter type: subsequent encounter Fracture type: closed Fracture morphology: posterior arch Fracture alignment: nondisplaced Fracture healing: with routine healing Qualified Code(s): S12.031D - Nondisplaced posterior arch fracture of first cervical vertebra, subsequent encounter for fracture with routine healing Condition: Stable Instructions: Fx Neck Spine Comments: The CT scan does not show any new injuries. Your odontoid fracture has healed. Your C1 posterior arch fractures are again noted and are nondisplaced. Continue wearing your collar and follow-up with the neurosurgery team. Continue with your pain and nausea medications as needed. Return to the ER with any new or worsening symptoms such as numbness or weakness Forms: PCP List Discharge Date/Time: 07/04/23 08:58
[2023-07-04] MEDS: ONDANSETRON ODT 4 MG TABLET TL STA (07:28)
[2023-07-04] MEDS: oxyCODONE 5 MG TABLET PO STA (08:13)
--- NOTE | 2023-07-04 08:17 | ED Physician Documentation ---
ED Addendum - Addendum Addendum: 07/04/23 Patient signed out to me at shift change pending CT cervical spine results. Patient has known C-spine fractures that been managed nonoperatively fully by neurosurgery since the fall. She was seen here yesterday and had an x-ray done due to feeling worsening pain. She has not been taking her pain medications as directed. CT report states that the odontoid fracture has healed. There is otherwise unchanged appearance of the cervical spine. Nondisplaced posterior arch C1 fractures are again noted. No other acute findings. Reviewed these results with the patient. She understands the need for follow-up with her neurosurgical team as well as taking the pain medications as needed. Departure - Departure Disposition: 01 Home, Self Care Clinical Impression: C1 cervical fracture Qualifiers: Encounter type: subsequent encounter Fracture type: closed Fracture morphology: posterior arch Fracture alignment: nondisplaced Fracture healing: with routine healing Qualified Code(s): S12.031D - Nondisplaced posterior arch fracture of first cervical vertebra, subsequent encounter for fracture with routine healing Condition: Stable Instructions: Fx Neck Spine Comments: The CT scan does not show any new injuries. Your odontoid fracture has healed. Your C1 posterior arch fractures are again noted and are nondisplaced. Continue wearing your collar and follow-up with the neurosurgery team. Continue with your pain and nausea medications as needed. Return to the ER with any new or worsening symptoms such as numbness or weakness Forms: PCP List Discharge Date/Time: 07/04/23 08:58
--- NOTE | 2023-07-04 08:40 | CT Report ---
PROCEDURE: Cervical Spine WO INDICATIONS: neck pain TECHNIQUE: Noncontrast 3 mm thick sections acquired from the skull base to the T4 level. Sagittal and coronal r eformats were then constructed. For radiation dose reduction, the following was used: automated exp osure control, adjustment of mA and/or kV according to patient size. COMPARISON: CT cervical spine without contrast dated 03/26/2023. FINDINGS: Image quality: Excellent. Bones: Interval healing of the previous dens fracture. Nondisplaced posterior arch C1 fractures are u nchanged, possibly indicating nonunion. There are nondisplaced. No new fractures or dislocations. Sev ere cervical spondylosis. Findings include anterolisthesis of C3 on C4, C4 on C5, and C5 on C6, and C 7 on T1. There is significant multilevel bony foraminal narrowing. There is multilevel facet arthropa thy. Visualized superior ribs are intact. Soft tissues: Prevertebral soft tissues are normal in thickness. No paravertebral hematomas. No ap ical pneumothoraces. IMPRESSION: 1. Interval healing of dens fracture. 2. No significant change, nondisplaced posterior arch of C1 fractures, possibly indicating developing nonunion. 3. Advanced cervical spondylosis. 4. No acute cervical fracture or dislocation. Findings are concordant with preliminary interpretation provided by [facility]. Reviewed by: Saeid Whittington MD on 07/04/2023 8:38 AM PST Approved by: Saeid Whittington MD on 07/04/2023 8:38 AM PST Station ID: [id number]
[2023-07-04 09:08] VITALS: BP 123/65; O2SAT 98
== END 2023-07-04 08:58 | disposition home or self-care (01) ==
LOC: EDUNIT# → ED 04:40
DX: S12.031D Nondisplaced posterior arch fracture of first cervical vertebra, subsequent encounter for fracture with routine healing (principal); W19.XXXD Unspecified fall, subsequent encounter; Z79.899 Other long term (current) drug therapy
CPT/HCPCS: 72125; 99283; 99284; A9270; Q0162

== ENCOUNTER 2023-08-13 03:00 | Outpatient (CLI) | payer MEDICARE, OTHER | END 2023-08-13 23:59 | disposition critical access hospital (66) | LOC: EMS 03:00 | DX: R42 Dizziness and giddiness (principal) | CPT/HCPCS: A0425; A0429 ==

== ENCOUNTER 2023-08-13 03:08 | Emergency (ER) | payer MEDICARE, OTHER ==
--- NOTE | 2023-08-13 03:32 | ED Physician Documentation ---
History of Present Illness - Stated complaint Stated Complaint: DIZZY, NECK PAIN - Chief complaint Chief Complaint: Neuro - History obtained from History obtained from: Patient, EMS - History of Present Illness Timing: Today - Additonal information Additional information: 78-year-old Cassia Bui again has broke her neck in April and she is still in a hard collar she went to sit down in her chair today and she is complaining of some new pain to the posterior aspect of her neck and some dizziness. She is chiefly complaining of the dizziness and this is whenever she tries to get up and go do something. Review of Systems Constitutional: denies: Fever, Chills Eyes: denies: Decreased vision Ears: denies: Ear pain Nose: denies: Congestion Throat: denies: Sore throat Cardiac: denies: Chest pain / pressure, Palpitations Respiratory: denies: Dyspnea, Cough GI: denies: Abdominal Pain, Nausea, Vomiting, Constipation, Diarrhea : denies: Dysuria, Frequency Skin: denies: Rash Musculoskeletal: reports: Neck pain. denies: Back pain, Extremity pain Neurologic: reports: Other (dizziness/light headedness). 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 MAKING TECHNICIAN: Hysterectomy HEENT: Cataracts, Tonsil/Adenoidectomy - Present Medications Home Medications: Ambulatory Orders Medication Instructions Recorded Confirmed Pantoprazole Sodium [Protonix] 40 mg PO DAILY 10/02/12 07/04/23 lamoTRIgine [LaMICtal] 100 mg PO QID 10/02/12 07/04/23 Amlodipine Besylate [Norvasc] 10 mg PO DAILY 01/31/22 07/04/23 Oxycodone HCl/Acetaminophen 1 - 2 each PO Q6H PRN #20 tablet 02/20/23 07/04/23 [Percocet 5-325 mg Tablet] Docusate Sodium 100Mg Capsule 1 cap PO Q6HR PRN 03/07/23 07/04/23 [Colace 100Mg Capsule] hydroCHLOROthiazide [Hydrodiuril] 1 tab PO DAILY 03/07/23 07/04/23 oxyCODONE [Roxicodone] 5 mg PO Q6H PRN #7 tablet 03/07/23 07/04/23 Ondansetron Odt [Zofran] 4 mg TL Q6H PRN #20 tablet 07/03/23 07/04/23 - Allergies Allergies/Adverse Reactions: Allergies Allergy/AdvReac Type Severity Reaction Status Date / Time esomeprazole Allergy Mild unknown Verified 08/13/23 03:29 diazepam Allergy Unknown Hallucinati Verified 08/13/23 03:29 ons Penicillins Allergy Unknown Hallucinati Verified 08/13/23 03:29 ons blue dye Allergy Unknown Verified 08/13/23 03:29 cephalexin Allergy Unknown Verified 08/13/23 03:29 lisinopril Allergy Unknown Verified 08/13/23 03:29 azithromycin AdvReac tremors Verified 08/13/23 03:29 - Social History Does the pt smoke?: No Smoking Status: Never smoker Does the pt drink ETOH?: No Does the pt have substance abuse?: No - Immunizations Immunizations are current?: Yes Immunizations: TDAP current <10years - POLST Patient has POLST: No POLST Status: Full Code PD ED PE NORMAL - Vitals Vital signs reviewed: Yes (hypertensive ) - General General: Well developed/nourished, Other (appears dry and has speech latency Laying supine with hard collar in place does not appear to be in pain. 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 Relevant findings are: Rate: Rate (enter#) (74) Rhythm: LAE Compare to prior EKG: Unchanged from prior EKG (SPT 02-25-2021 no changes) Computer interpretation: Agree with computer - Labs Labs: Laboratory Tests 08/13/23 08/13/23 08/13/23 03:29 03:29 04:52 WBC 5.1 RBC 4.52 Hgb 13.2 Hct 40.9 MCV 90.5 MCH 29.2 MCHC 32.3 RDW 14.5 Plt Count 261 MPV 8.7 Neut # (Auto) 2.6 Lymph # (Auto) 1.7 Gregg # (Auto) 0.7 Eos # (Auto) 0.1 Baso # (Auto) 0.0 Absolute Nucleated RBC 0.00 Nucleated RBC % 0.0 Sodium 136 Potassium 3.6 Chloride 100 L Carbon Dioxide 27 Anion Gap 9.0 BUN 26 H Creatinine 0.8 Estimated GFR (MDRD) 69 L Glucose 108 H Calcium 9.7 Total Bilirubin 0.5 AST 14 ALT 11 Alkaline Phosphatase 51 Total Protein 6.9 Albumin 4.2 Globulin 2.7 Albumin/Globulin Ratio 1.6 Lipase 22 Urine Color YELLOW Urine Clarity CLEAR Urine pH 7.5 Ur Specific Carroll 1.010 Urine Protein NEGATIVE Urine Glucose (UA) NEGATIVE Urine Ketones NEGATIVE Urine Occult Blood NEGATIVE Urine Nitrite NEGATIVE Urine Bilirubin NEGATIVE Urine Urobilinogen 0.2 (NORMAL) Ur Leukocyte Esterase NEGATIVE Ur Microscopic Review NOT INDICATED Urine Culture Comments NOT INDICATED - Rads (name of study) CT cervical spine Relevant Findings:: Prelim report reviewed (Impression: 1. Healed odontoid fracture. Remote posterior arch C1 fractures stable. Multilevel degenerative spondylosis/listhesis are stable no acute compression fractures.) Procedures - IVC sono (time) 0330 Bedside IVC sono: IVC measures (cm) (0.89), IVC collapsed c insp (cm) (complete), Dehydration (est 2 liter deficit) PD Medical Decision Making - ED course Complexity details: reviewed old records, reviewed results, re-evaluated patient, considered differential, d/w patient Reviewed Lab Results: We reviewed a complete blood count showing a normal white blood cell count of 5.1 normal hemoglobin hematocrit and platelets, strays were remarkable for an BUN elevated at 26 electrolytes are otherwise unremarkable creatinine 0.8 calcium 9.7 and normal liver functions normal urinalysis negative. These laboratory results demonstrate a single elevated level of BUN, Consistent with the level of dehydration determined on interrogation of the IVC with POCUS. ED course: Cassia Graves presented to the Emergency Department with dizziness and a concern about pain in the back of her neck. We found that the patient was dehydrated and applied saline. I reviewed the patient's medication list and found that she was on hydrochlorothiazide. I specifically asked the patient if she was taking a diuretic as I noticed that the amount of urine she put out was about what we had put in for saline. She did not know that she was on a diuretic. I have asked her to stop her diuretic and follow-up with her primary care doctor for blood pressure check. We did not find other abnormalities for this patient. We did at her request repeat her CT scan of her neck with her concerns there was a problem with the C1 fracture. This appears stable. Departure - Departure Disposition: 01 Home, Self Care Clinical Impression: Dehydration Condition: Stable Instructions: ED Dehydration Follow-Up: Jasmina Sanchez ARNP [Provider Admit Priv/Credential] - Comments: Cassia, today we found that you were significantly dehydrated and we have provided some intravenous fluid to you. I noticed on your medical list that you have hydrochlorothiazide listed as a medication that you take. This medication is a diuretic and will dehydrate you. This is usually something taken for blood pressure and my recommendation to you is to stop taking this. Follow-up with your primary care doctor for blood pressure recheck in the next 2 weeks. Forms: PCP List
[2023-08-13 03:41] LABS: BASOPHILS % (AUTO) 0.6 %; EOSINOPHILS # (AUTO) 0.1 10^3/uL (0.0-0.7); EOSINOPHILS % (AUTO) 1.4 %; HCT - HEMATOCRIT 40.9 % (37.0-47.0); HGB - HEMOGLOBIN 13.2 g/dL (12.0-16.0); LYMPHOCYTES # (AUTO) 1.7 10^3/uL (1.5-3.5); LYMPHOCYTES % (AUTO) 33.7 %; MEAN CORPUSCULAR HEMOGLOBIN 29.2 pg (27.0-31.0); MEAN CORPUSCULAR HGB CONC 32.3 g/dL (32.0-36.0); MEAN CORPUSCULAR VOLUME 90.5 fL (81.0-99.0); MEAN PLATELET VOLUME 8.7 fL (7.9-10.8); MONOCYTES # (AUTO) 0.7 10^3/uL (0.0-1.0); MONOCYTES % (AUTO) 12.9 %; NEUTROPHILS # (AUTO) 2.6 10^3/uL (1.5-6.6); PLT - PLATELET COUNT 261 10^3/uL (130-450); RED BLOOD COUNT 4.52 10^6/uL (4.20-5.40); RED CELL DISTRIBUTION WIDTH 14.5 % (12.0-15.0); WHITE BLOOD COUNT 5.1 x10^3/uL (4.8-10.8)
[2023-08-13] MEDS: SODIUM CHLORIDE 0.9% 1,000 ML IV STA ×2 (03:55→05:13)
[2023-08-13 03:57] LABS: ALBUMIN 4.2 g/dL (3.2-5.5); ALBUMIN/GLOBULIN RATIO 1.6 (1.0-2.2); BILIRUBIN,TOTAL 0.5 mg/dL (0.2-1.0); CALCIUM 9.7 mg/dL (8.5-10.3); CREATININE 0.8 mg/dL (0.6-1.3); POTASSIUM 3.6 mmol/L (3.5-4.5); TOTAL PROTEIN 6.9 g/dL (6.4-8.9)
[2023-08-13 05:18] LABS: BILIRUBIN,URINE NEGATIVE (NEGATIVE); GLUCOSE, URINE (UA) NEGATIVE (NEGATIVE); KETONES,URINE (UA) NEGATIVE (NEGATIVE); LEUKOCYTE ESTERASE, URINE NEGATIVE (NEGATIVE); NITRITE,URINE NEGATIVE (NEGATIVE); OCCULT BLOOD,URINE NEGATIVE (NEGATIVE); PH,URINE 7.5 PH (5.0-7.5); PROTEIN,URINE NEGATIVE (NEGATIVE); UROBILINOGEN,URINE 0.2 (NORMAL) E.U./dL (NORMAL)
[2023-08-13 05:31] LABS: CLARITY,URINE CLEAR (CLEAR)
[2023-08-13 07:25] VITALS: BP 156/84; O2SAT 98
--- NOTE | 2023-08-13 08:43 | CT Report ---
PROCEDURE: Cervical Spine WO INDICATIONS: hx of C-spine fx new symptoms of posterior pain TECHNIQUE: Noncontrast 3 mm thick sections acquired from the skull base to the T4 level. Sagittal and coronal r eformats were then constructed. For radiation dose reduction, the following was used: automated exp osure control, adjustment of mA and/or kV according to patient size. COMPARISON: CT cervical spine 07/04/2023, 03/24/2023 FINDINGS: Image quality: Excellent. Bones: No acute fractures or dislocations. Bilateral posterior arch C1 fracture as well as type II o dontoid fracture as previously identified and demonstrating interval healing. Visualized superior rib s are intact. Multilevel degenerative changes are present. Soft tissues: Prevertebral soft tissues are normal in thickness. No paravertebral hematomas. No ap ical pneumothoraces. IMPRESSION: No acute fractures. Previously identified type II dens as well as bilateral posterior C1 arch fractures. The above findings are concordant with preliminary report. Reviewed by: Jackie Glover MD on 08/13/2023 8:42 AM PDT Approved by: Jackie Glover MD on 08/13/2023 8:42 AM PDT Station ID: [id number]
== END 2023-08-13 07:33 | disposition home or self-care (01) ==
LOC: EDUNIT# → ED 03:08
DX: E86.0 Dehydration (principal); M54.2 Cervicalgia; Z79.899 Other long term (current) drug therapy
CPT/HCPCS: 36415; 80053; 81001; 81003; 83690; 85025; 87086; 93005; 96360; 96361; 99284

== ENCOUNTER 2023-08-13 17:41 | Outpatient (CLI) | payer MEDICARE, OTHER | END 2023-08-13 23:59 | disposition EMS.NT | LOC: EMS 17:41 | DX: R25.1 Tremor, unspecified (principal) ==

== ENCOUNTER 2023-08-28 10:58 | Outpatient (CLI) | payer MEDICARE, OTHER ==
--- NOTE | 2023-08-28 15:02 | CT Report ---
PROCEDURE: Cervical Spine WO INDICATIONS: CERVICAL FX TECHNIQUE: Noncontrast 3 mm thick sections acquired from the skull base to the T4 level. Sagittal and coronal r eformats were then constructed. For radiation dose reduction, the following was used: automated exp osure control, adjustment of mA and/or kV according to patient size. COMPARISON: 08/13/2023, 07/04/2023, 03/26/2023, 03/24/2023 FINDINGS: Image quality: Excellent. Bones: Chronic fractures can be seen involving the posterior arch of the C1 level, as seen on series 9 images 44 and 45. Minimal remodeling change can be seen. There is periosteal reaction seen, with ea rly, minimal bony bridging. The previously seen type II dens fracture is largely healed and only faintly seen, as on series 13 im age 38. Significant bony ridging can be seen at this site. Multiple levels of significant underlying degenerative change can be seen, including moderate to sophie re disc space narrowing at C4-C5, C5-C6, C6-C7, and C7-T1. Soft tissues: Prevertebral soft tissues are normal in thickness. No paravertebral hematomas. No ap ical pneumothoraces. IMPRESSION: The previously seen type II dens fracture is largely healed, with bony bridging seen. Minimal interval healing change seen involving the fractures involving the posterior arch of C1. Multiple levels of significant underlying degenerative change can be seen. Reviewed by: Griffin Meneses MD on 08/28/2023 2:01 PM GO Approved by: Griffin Meneses MD on 08/28/2023 2:01 PM AKDULCE MARIA Station ID: [id number]
== END 2023-08-28 10:59 | disposition home or self-care (01) ==
LOC: DI 10:58
PROVIDERS: ATTEND Nurse Practitioner Family
DX: S12.001 Unspecified nondisplaced fracture of first cervical vertebra (principal); S12.101G Unspecified nondisplaced fracture of second cervical vertebra, subsequent encounter for fracture with delayed healing; M47.812 Spondylosis without myelopathy or radiculopathy, cervical region

== ENCOUNTER 2023-09-14 08:00 | Outpatient (CLI) | payer MEDICARE, OTHER ==
--- NOTE | 2023-09-14 11:01 | XRAY Report ---
PROCEDURE: Knee 4 View RT INDICATIONS: RIGHT KNEE PAIN TECHNIQUE: 4 views of the knee(s) were acquired. COMPARISON: X-ray knee 10/12/2011 FINDINGS: Bones: No fractures or dislocations. No suspicious bony lesions. Moderate to severe tricompartmen fior arthritic change on the right, most severe laterally with subchondral sclerosis and particular os teophytes. No distinct erosions. Left knee demonstrates moderate bicompartmental arthritic change. Soft tissues: No knee joint effusion. No suspicious soft tissue calcifications or masses. IMPRESSION: Bilateral arthritic changes most severe in the right lateral compartment. Reviewed by: Jackie Glover MD on 09/14/2023 10:59 AM PDT Approved by: Jackie Glover MD on 09/14/2023 10:59 AM PDT Station ID: [id number]
== END 2023-09-14 23:59 | disposition home or self-care (01) ==
LOC: DI.WOS 08:00
PROVIDERS: ATTEND Orthopaedic Surgery
DX: M17.0 Bilateral primary osteoarthritis of knee (principal)

== ENCOUNTER 2024-01-06 07:47 | Outpatient (CLI) | payer MEDICARE, OTHER | END 2024-01-06 07:48 | disposition home or self-care (01) | LOC: LAB 07:47 | PROVIDERS: ATTEND Psychiatry & Neurology Neurology | DX: G40.109 Localization-related (focal) (partial) symptomatic epilepsy and epileptic syndromes with simple partial seizures, not intractable, without status epilepticus (principal) | CPT/HCPCS: 36415; 80175 ==